=== PATIENT | male | born 1980 | race Caucasian/White ===

== ENCOUNTER 2019-10-23 11:40 | Outpatient (RCR) | payer OTHER, SELFPAY ==
[2019-10-08 11:15] LABS: INR 1.8; Prothrombin Time 20.1 Seconds (11.1-14.7)
[2019-10-23 12:26] LABS: INR 1.2; Prothrombin Time 15.2 Seconds (11.1-14.7)
== END 2020-01-06 23:59 | disposition home or self-care (01) ==
LOC: ANHLAB 11:40
PROVIDERS: PCP Family Medicine; Visit Provider Family Medicine
DX: I26.99 Other pulmonary embolism without acute cor pulmonale (principal)
CPT/HCPCS: 36415; 85610

== ENCOUNTER 2020-01-24 10:24 | Emergency (ER) | payer OTHER, SELFPAY ==
--- NOTE | ~2020-01-24 | XR_ITS ---
EXAMINATION: XR chest 1V portable DATE: 01/24/2020 11:17 INDICATION: Cough and shortness of breath. TECHNIQUE: A single frontal view of the chest was obtained. COMPARISON: Chest 2 views 06/18/2011, chest CT 03/06/2019 FINDINGS: The chest demonstrates clear lungs without pneumonia, pleural effusion, or pneumothorax. Th e heart size is normal. IMPRESSION: 1. No acute cardiopulmonary disease. Reviewed, dictated and finalized at location B.
--- NOTE | ~2020-01-24 | CT_ITS ---
EXAMINATION: CTA chest PE protocol DATE: 01/24/2020 11:53 INDICATION: Shortness of breath TECHNIQUE: Computed tomography angiography (CTA) of the chest was performed with 100 mL Omnipaque-350 intravenous contrast timed to evaluate the pulmonary arteries. Coronal maximum intensity projection 3D-reconstructions were created by the technologist. Automated exposure control and iterative reconst ruction technique were employed. Exam dose: 826.32 mGy-cm total exam DLP. COMPARISON: 03/06/2019 CT pulmonary scan 01/24/2020 portable AP chest FINDINGS: The pulmonary arteries are diagnostically enhanced by contrast material and there is no jenniffer arent pulmonary embolism. No thoracic aortic aneurysm or dissection. There is trace pericardial fluid. No pleural effusion. No hilar or mediastinal mass lesion or lymphadenopathy. No pulmonary infiltrate or consolidation. Normal adrenal glands. Included upper abdominal structures are unremarkable. Small sliding hiatal hernia. Included skeletal structures are unremarkable. IMPRESSION: No evidence of pulmonary embolism Reviewed, dictated and finalized at Location [facility]. Reviewed, dictated and finalized at location A.
[2020-01-24 10:39] VITALS: BP 158/113; PULSE 90; PULSE 95; RESP 22; TEMP 37.1; O2SAT 97
--- NOTE | 2020-01-24 10:43 | ECG_ITS ---
Measurements Intervals [place] Rate: 82 P: 36 [place]: 139 QRS: 8 QRSD: 95 T: 2 QT: 379 QTc: 445 Interpretive Statements SINUS RHYTHM NORMAL ECG Electronically Signed On 01-24-2020 11:52:36 CDT by Brooks Savage D.O.
[2020-01-24 10:51] LABS: Basophils Absolute Auto 0.1 K/mm3 (0.0-0.1); Basophils Percent Auto 0.7 % (0.2-1.2); Eosinophils Absolute Auto 0.1 K/mm3 (0-0.3); Eosinophils Percent Auto 1.1 % (0-4.4); Hematocrit 52.4 % (42.0-52.0); Hemoglobin 17.9 g/dL (14.0-18.0); Immature Granulocyte Absolute 0.02 K/mm3 (0.00-0.031); Immature Granulocyte Percent A 0.2 % (0-0.5); Lymphocytes Absolute Auto 1.46 K/mm3 (0.9-3.2); Lymphocytes Percent Auto 15.9 % (18.3-44.2); Mean Corpuscular HGB Conc 34.2 g/dl (32-36); Mean Corpuscular Hemoglobin 31.1 pg (26-34); Mean Platelet Volume 9.8 fl (7.4-10.4); Monocytes Absolute Auto 0.8 K/mm3 (0.1-0.6); Monocytes Percent Auto 8.3 % (2.6-8.5); Neutrophils Absolute Auto 6.8 K/mm3 (1.3-6.7); Neutrophils Percent Auto 73.8 % (45.5-73.1); Platelet Count Result 310 k/mm3 (150-375); Red Blood Count 5.76 M/mm3 (4.6-6.20); White Blood Count 9.2 K/mm3 (4.5-10.0)
[2020-01-24 11:04] LABS: Anion Gap 13 mmol/L (8-16); Blood Urea Nitrogen 14 mg/dL (9-20); Calcium 9.6 mg/dL (8.4-10.2); Carbon Dioxide 22 mmol/L (22-30); Chloride 105 mmol/L (98-107); Estimated Glomerular Filt Rate > 60; Glucose 131 mg/dL (75-110); Potassium 3.7 mmol/L (3.4-5.0); Sodium 140 mmol/L (137-145)
[2020-01-24 11:15] LABS: INR 1.1; Prothrombin Time 13.4 Seconds (11.1-14.7)
--- NOTE | 2020-01-24 11:15 | ED.GENADULT ---
HPI - General Adult General Chief complaint: Shortness of Breath/Dyspnea <Pepito Cleary PA-C - Last Filed: 01/24/20 12:53> Stated complaint: no appetite, sob, fever, chills <Pepito Cleary PA-C - Last Filed: 01/24/20 12:53> Time Seen by Provider: 01/24/20 11:00 <Pepito Cleary PA-C - Last Filed: 01/24/20 12:53> Source: patient <Pepito Cleary PA-C - Last Filed: 01/24/20 12:53> Mode of arrival: ambulatory <Pepito Cleary PA-C - Last Filed: 01/24/20 12:53> Limitations: no limitations <Pepito Cleary PA-C - Last Filed: 01/24/20 12:53> History of Present Illness HPI narrative: Patient is a 39-year-old male who presents with 3 days duration of upper respiratory symptoms with chills sweats body aches cough shortness of breath is also had a few episodes of loose stools and emesis per day. Patient and his fianc?e who he lives with were tested fianc? is currently positive for COVID. Patient's test results are pending. On arrival patient notes generalized body aches. Patient with history of inflammatory bowel disease currently on Humira had his last injection 2 weeks ago. Patient denies hematemesis or rectal bleeding patient has not taken anything for his symptoms. . Patient also notes decreased appetite over the last several days <Pepito Cleary PA-C - Last Filed: 01/24/20 12:53> Related Data Allergies/adverse reactions: Allergies Allergy/AdvReac Type Severity Reaction Status Date / Time No Known Allergies Allergy Unverified 03/06/19 18:32 <Pepito Cleary PA-C - Last Filed: 01/24/20 12:53> Review of Systems Review of Systems: All systems reviewed & are unremarkable except as noted in HPI and below <Pepito Cleary PA-C - Last Filed: 01/24/20 12:53> [facility] Past Medical History Medical History: Medical History (Updated 01/24/20 @ 12:51 by Pepito Cleary PA-C) Inflammatory bowel disease Pulmonary embolism <Pepito Cleary PA-C - Last Filed: 01/24/20 12:53> Social History Social History: Social History Smoking status: Never smoker Gender identity (if verbalized by the patient): Male <Pepito Cleary PA-C - Last Filed: 01/24/20 12:53> Exam Narrative: Exam Narrative: GENERAL: Ill-appearing, well-nourished, and in no acute distress. HEAD: Normocephalic, atraumatic. EYES: PERRLA and EOMI. ENT: Nares clear, no rhinorrhea or epistaxis. Mucous membranes moist. Oropharynx without tonsillar hypertrophy exudate or other lesions. CHEST: Clear to auscultation. No respiratory distress. No wheezes rales or rhonchi HEART: Regular rate and rhythm. No murmur heard. Normal peripheral pulses. ABDOMEN: Soft, nontender, nondistended EXTREMITIES: Normal range of motion. No edema. SKIN: Warm, dry, no rash. NEURO: No focal deficits. Alert and oriented x3. Cranial nerves II through XII grossly intact PSYCH: Normal mood and affect. <Pepito Cleary PA-C - Last Filed: 01/24/20 12:53> Course Course Emergency Course: Patient aware of case findings treatment plan and diagnosis will self quarantine until COVID results have been obtained is in the room in no distress feeling better with interventions felt appropriate for outpatient reevaluation provided with reasons to return. Patient afebrile nontoxic-appearing no distress. <Pepito Cleary PA-C - Last Filed: 01/24/20 12:53> Vital Signs Vital signs: Vital Signs Temperature 98.8 F 01/24/20 10:39 Pulse Rate 95 01/24/20 10:39 Respiratory Rate 22 H 01/24/20 10:39 Blood Pressure 158/113 H 01/24/20 10:39 Pulse Oximetry 97 01/24/20 10:39 Temperature 98.8 F 01/24/20 10:39 Pulse Rate 95 01/24/20 10:39 Respiratory Rate 22 H 01/24/20 10:39 Blood Pressure 158/113 H 01/24/20 10:39 Pulse Oximetry 97 01/24/20 10:39 <Pepito Cleary PA-C - Last Filed: 01/24/20 12:53> Vital Signs Temperatur
[2020-01-24 11:16] LABS: Partial Thromboplastin Time 25.4 SECONDS (22.3-36.8)
[2020-01-24 11:17] LABS: CRP 1.2 mg/dL (<1.0); Lipase 17 U/L (23-300)
[2020-01-24] MEDS: FAMOTIDINE 20 MG/2 ML VIAL IV PUSH (11:27)
[2020-01-24] MEDS: LACTATED RINGERS 1,000 ML 999 ML IV CONT (11:27)
[2020-01-24 11:38] LABS: Lactic Acid Reflex 1.1 mmol/L (0.7-2.1)
[2020-01-24 11:40] LABS: Alanine Aminotransferase 44 U/L (4-50); Albumin Level 4.8 g/dL (3.5-5.1); Alkaline Phosphatase 76 U/L (38-126); Aspartate Amino Transferase 45 U/L (17-59); Bilirubin,Total 0.8 mg/dL (0.2-1.3)
[2020-01-24 13:14] VITALS: BP 162/105; PULSE 72; RESP 14; O2SAT 98
[2020-01-24 20:41] LABS: SARS-CoV-2 RNA PCR Negative
== END 2020-01-24 13:16 | disposition home or self-care (01) ==
PROVIDERS: Emergency Medicine Emergency Medical Services; Emergency Provider Emergency Medicine; PCP Family Medicine
DX: J06.9 Acute upper respiratory infection, unspecified (principal); Z20.828 Contact with and (suspected) exposure to other viral communicable diseases; K58.9 Irritable bowel syndrome, unspecified
CPT/HCPCS: 36415; 71045; 71275; 80048; 80076; 83605; 83690; 85025; 85610; 85730; 86140; 87040; 87635; 93005; 96365; 96375; 99284; C9803; J0131; J7120; Q9967; U0003

== ENCOUNTER 2020-05-16 08:03 | Emergency (ER) | payer OTHER, SELFPAY ==
--- NOTE | ~2020-05-16 | CT_ITS ---
EXAMINATION: CT abdomen pelvis w con EXAM DATE: 05/16/2020 09:27 INDICATION: Ulcerative colitis. TECHNIQUE: Spiral CT of the abdomen and pelvis was performed following intravenous injection of 100 m L Omnipaque 350. Axial, coronal and sagittal images were reviewed. The dose-length product (DLP) fo r this examination was 1200.98 mGy-cm. The exposure was tailored according to patient size (auto mA exposure control), and iterative reconstruction (ASIR) was used as additional dose reduction techniqu e. Comparison is made to prior examination from 04/17/2011. FINDINGS: The liver, spleen, adrenal glands and pancreas are unremarkable. Gallbladder is unremarkab le. No biliary obstruction. Portal and splenic veins are patent. Kidneys enhance symmetrically. T here is no hydronephrosis. The prostate is unremarkable. The bladder is unremarkable. There is no retroperitoneal or pelvic lymphadenopathy. Diffuse mild to moderate colonic wall edema. No pneumatosis. The appendix is normal. The stomach and small bowel are unremarkable. No free intraperitoneal gas. The heart is normal in size. There a re no pericardial or pleural effusions. The lung bases are unremarkable. There are no osteoblastic or osteolytic lesions identified. IMPRESSION: Pancolitis. Consider ulcerative colitis, infectious colitis. Reviewed, dictated and finalized at location A. O GAME PROGRAMMER
[2020-05-16 08:18] VITALS: BP 150/99; PULSE 77; RESP 14; TEMP 36.9; O2SAT 99
[2020-05-16 08:31] LABS: Basophils Absolute Auto 0.1 K/mm3 (0.0-0.1); Basophils Percent Auto 0.8 % (0.2-1.2); Eosinophils Absolute Auto 0.4 K/mm3 (0-0.3); Eosinophils Percent Auto 4.6 % (0-4.4); Hematocrit 45.8 % (42.0-52.0); Hemoglobin 15.5 g/dL (14.0-18.0); Immature Granulocyte Absolute 0.03 K/mm3 (0.00-0.031); Immature Granulocyte Percent A 0.3 % (0-0.5); Lymphocytes Absolute Auto 2.81 K/mm3 (0.9-3.2); Lymphocytes Percent Auto 29.3 % (18.3-44.2); Mean Corpuscular HGB Conc 33.8 g/dl (32-36); Mean Corpuscular Hemoglobin 30.8 pg (26-34); Mean Corpuscular Volume 90.9 fl (80-100); Mean Platelet Volume 9.6 fl (7.4-10.4); Monocytes Absolute Auto 0.9 K/mm3 (0.1-0.6); Monocytes Percent Auto 9.3 % (2.6-8.5); Neutrophils Absolute Auto 5.3 K/mm3 (1.3-6.7); Neutrophils Percent Auto 55.7 % (45.5-73.1); Platelet Count Result 336 k/mm3 (150-375); Red Blood Count 5.04 M/mm3 (4.6-6.20); Red Cell Distribution Width 13.5 % (11.5-14.5); White Blood Count 9.6 K/mm3 (4.5-10.0)
[2020-05-16 08:42] LABS: Alanine Aminotransferase 22 U/L (4-50); Albumin Level 4.1 g/dL (3.5-5.1); Alkaline Phosphatase 38 U/L (38-126); Anion Gap 11 mmol/L (8-16); Aspartate Amino Transferase 29 U/L (17-59); Bilirubin,Total 0.3 mg/dL (0.2-1.3); Blood Urea Nitrogen 16 mg/dL (9-20); Calcium 9.2 mg/dL (8.4-10.2); Carbon Dioxide 23 mmol/L (22-30); Chloride 106 mmol/L (98-107); Estimated CRCL calculation 128 ml/min; Estimated Glomerular Filt Rate > 60; Glucose 107 mg/dL (75-110); Lipase 82 U/L (23-300); Potassium 4.5 mmol/L (3.4-5.0); Sodium 140 mmol/L (137-145)
[2020-05-16] MEDS: SODIUM CHLORIDE 0.9% IV 1,000 ML 999 ML IV CONT ×2 (09:31)
--- NOTE | 2020-05-16 09:33 | ED.ABDPAIN ---
HPI - Abdominal Pain General Chief Complaint: Abdominal Pain Stated Complaint: abd pain, n/v Time Seen by Provider: 05/16/20 08:17 Source: patient Mode of arrival: ambulatory Limitations: no limitations History of Present Illness HPI narrative: 39 years old white male presents with diffuse intermittent abdominal pain started 3 days ago associated with nausea, vomiting on average 20 times a day, diarrhea on average 20 times a day. Currently patient is asymptomatic. History of ulcerative colitis was seen by Dr. briscoe, last time 2 months ago, status post colonoscopy. Currently patient on Humira 2 injection a month. Patient denies any fever, chills, exposure to anybody known having COVID-19. Patient does not smoke, drinks occasionally, denies drug use. History of pancreatitis Denies any antibiotic use in the last few months Related Data Home Medications Medication Instructions Recorded Confirmed escitalopram oxalate mg 05/16/20 lorazepam 05/16/20 zolpidem 05/16/20 Allergies Allergy/AdvReac Type Severity Reaction Status Date / Time No Known Allergies Allergy Verified 05/16/20 08:22 Review of Systems Review of Systems: Narrative: CONSTITUTIONAL: Denies fever, chills, or sweats. EYES: Denies visual changes, redness, or discharge. ENT: Denies rhinorrhea, congestion, sore throat, or otalgia. CARDIOVASCULAR: Denies chest pain, palpitations, or edema. RESPIRATORY: Denies cough or dyspnea. GASTROINTESTINAL: Abdominal pain, nausea, vomiting and diarrhea GENITOURINARY: Denies dysuria or hematuria. SKIN: Denies rash or itching. MUSCULOSKELETAL: Denies back pain, joint pain, or myalgia. NEUROLOGIC: Denies headache, numbness, or weakness. PSYCHIATRIC: Denies anxiety or depression. Exam Narrative: Exam Narrative: General appearance: Well-developed, well-nourished Skin: Normal color Head: Normocephalic, nontraumatic Eyes: Clear conjunctiva ENT: Oropharynx normal, ears normal, nose normal Neck: Supple, nontender Chest and respiratory: Airway patent, no respiratory distress, no accessory muscle use Heart: Regular rate/rhythm Abdomen: Soft, nontender, no organomegaly, quiet bowel sounds Vascular: Normal peripheral pulses, normal capillary refill. Musculoskeletal: Normal range of motion, nontender back Neurologic: Alert and oriented ?3, ADJUTANT GENERAL is normal as tested, no gross motor deficit Course Course Emergency Course: Stable, improving Reevaluation(s) Reevaluation #1: Patient did not have any diarrhea or vomiting since arrival to the emergency room. Patient is able to keep fluid and the crackers down. Patient will be discharged on Levaquin and Flagyl. Date: 05/16/20 Time: 12:26 Consultations Consultation #1: Dr. Arenas id Patient able to keep fluid and crackers down, can go home on Flagyl and Levaquin. Date: 05/16/20 Time: 12:25 Vital Signs Vital signs: Vital Signs Temperature 36.9 C 05/16/20 08:18 Pulse Rate 77 05/16/20 08:18 Respiratory Rate 14 05/16/20 08:18 Blood Pressure 150/99 H 05/16/20 08:18 Pulse Oximetry 99 05/16/20 08:18 Temperature 36.9 C 05/16/20 08:18 Pulse Rate 80 05/16/20 11:47 Respiratory Rate 16 05/16/20 11:47 Blood Pressure 148/88 H 05/16/20 11:47 Pulse Oximetry 98 05/16/20 11:47 MDM - Abdominal Pain MDM Narrative Medical decision making narrative: Patient presents with abdominal pain, severe nausea, vomiting and diarrhea. Labs, CT abdomen and pelvis with IV contrast, IV fluids, stool analysis, ordered. Further plan to follow. Differential Diagnosis Differential diagnosis: Likely abdominal pain, gastroenteritis, pancreatitis and other (Viral gastroenteritis) Lab Data Result diagrams:
[2020-05-16 11:05] LABS: Add Urine Microscopic? NO; Appearance Urine Clear (Clear); Bilirubin Urine Negative (Negative); Blood Urine Negative (Negative); Color Urine Straw (Yellow); Glucose Urine UA Negative (Negative); Ketones Urine Negative (Negative); Leukocyte Esterase Ur Negative LEU/UL (Negative); Nitrate Urine Negative (Negative); Protein Urine Negative (Negative); Urobilinogen Urine Negative mg/dL (<2.0); WBC Urine 0-3 /hpf
[2020-05-16 11:20] LABS: Specific Grav Ur > 1.060 (1.001-1.035)
[2020-05-16 11:47] VITALS: BP 148/88; PULSE 80; RESP 16; O2SAT 98
--- NOTE | 2020-05-16 12:20 | PC.NURSE ---
pt tolerated fluids on PO challenge provider aware
== END 2020-05-16 12:20 | disposition home or self-care (01) ==
PROVIDERS: Emergency Provider Emergency Medicine; PCP Family Medicine
DX: K51.00 Ulcerative (chronic) pancolitis without complications (principal)
CPT/HCPCS: 36415; 74177; 80053; 81003; 83690; 85025; 96360; 96361; 99284; J7030; Q9967

== ENCOUNTER 2020-05-24 10:25 | Inpatient (IN) | payer OTHER, SELFPAY ==
[2020-05-24] VITALS (8 sets, daily range): BP systolic 123–171; BP diastolic 56–115; PULSE 60–103; RESP 16–20; TEMP 36.4–36.9; O2SAT 95–100
--- NOTE | ~2020-05-24 | CT_ITS ---
EXAMINATION: CT abdomen pelvis wo con DATE: 05/24/2020 13:26 INDICATION: Ulcerative colitis flare TECHNIQUE: Computed tomography (CT) of the abdomen and pelvis was performed without intravenous contr ast. Automated exposure control and iterative reconstruction technique were employed. The dose-length product was 953.34 mGy-cm. COMPARISON: 05/16/2020 FINDINGS: Lung bases are clear. Heart size is normal. No pericardial or pleural effusion. Liver, gallbladder, s pleen, bilateral adrenal glands and kidneys are normal. Fatty atrophy of the pancreas, mild at the maryjo dy and tail and prominent at the head and uncinate process. Again seen is relatively uniform diffuse edematous wall thickening of the entire colon which appears similar in degree with the prior study. A s previously there is a featureless relatively ahaustral pattern to the colon which can be seen datin g back to 2009 consistent with chronic ulcerative colitis. No pneumatosis or abnormal dilation of the colon. Small bowel and appendix are normal. No bowel obstruction. There are multiple likely reactive normal-sized lymph nodes along the colonic mesentery which are more notable for number than size. Bl adder is normal. Small fat-containing left inguinal hernia. No abscess or free intraperitoneal gas or fluid. Mild lumbar dextrocurvature with mild spondylosis. IMPRESSION: 1. No significant change in likely acute on chronic pancolitis consistent with given history of ulcer ative colitis. Reviewed, dictated and finalized at location A. SKINNER IMPRESSION: 1. No significant change in likely acute on chronic pancolitis consistent with given history of ulcerative colitis.
[2020-05-24 10:54] LABS: Basophils Absolute Auto 0.1 K/mm3 (0.0-0.1); Basophils Percent Auto 0.5 % (0.2-1.2); Eosinophils Absolute Auto 0.1 K/mm3 (0-0.3); Eosinophils Percent Auto 0.8 % (0-4.4); Hemoglobin 15.3 g/dL (14.0-18.0); Immature Granulocyte Absolute 0.06 K/mm3 (0.00-0.031); Immature Granulocyte Percent A 0.5 % (0-0.5); Lymphocytes Absolute Auto 2.27 K/mm3 (0.9-3.2); Lymphocytes Percent Auto 20.7 % (18.3-44.2); Mean Corpuscular Hemoglobin 30.5 pg (26-34); Mean Corpuscular Volume 89.6 fl (80-100); Mean Platelet Volume 9.7 fl (7.4-10.4); Monocytes Absolute Auto 1.5 K/mm3 (0.1-0.6); Monocytes Percent Auto 13.7 % (2.6-8.5); Neutrophils Percent Auto 63.8 % (45.5-73.1); Platelet Count Result 367 k/mm3 (150-375); Red Blood Count 5.02 M/mm3 (4.6-6.20); Red Cell Distribution Width 13.3 % (11.5-14.5); White Blood Count 10.9 K/mm3 (4.5-10.0)
[2020-05-24 11:10] LABS: Alanine Aminotransferase 20 U/L (4-50); Albumin Level 3.9 g/dL (3.5-5.1); Alkaline Phosphatase 50 U/L (38-126); Anion Gap 8 mmol/L (8-16); Aspartate Amino Transferase 23 U/L (17-59); Bilirubin,Total 0.4 mg/dL (0.2-1.3); Blood Urea Nitrogen 14 mg/dL (9-20); Calcium 9.3 mg/dL (8.4-10.2); Carbon Dioxide 27 mmol/L (22-30); Chloride 100 mmol/L (98-107); Estimated CRCL calculation 127 ml/min; Estimated Glomerular Filt Rate > 60; Glucose 134 mg/dL (75-110); Lipase 22 U/L (23-300); Potassium 4.2 mmol/L (3.4-5.0); Sodium 135 mmol/L (137-145)
[2020-05-24] MEDS: DICYCLOMINE HCL INJ 20 MG/2 ML VIAL IM ×2 (11:36→20:46)
[2020-05-24] MEDS: LACTATED RINGERS 1,000 ML 999 ML IV CONT (12:12)
[2020-05-24] MEDS: ONDANSETRON INJ 4 MG/2 ML VIAL IV PUSH ×3 (12:24→20:34)
[2020-05-24] MEDS: methylPREDNISolone SOD SUCC 125 MG VIAL 60 MG IV PUSH ×2 (12:24→21:40)
[2020-05-24] MEDS: fentaNYL CITRATE INJ (*CRX) 100 MCG/2 ML VIAL 50 MCG IV PUSH ×2 (12:25→14:13)
--- NOTE | 2020-05-24 13:32 | ED.NAVMDI ---
HPI - Nausea/Vomiting/Diarrhea General Chief complaint: Nausea/Vomiting/Diarrhea Stated complaint: n/v abd pain Time Seen by Provider: 05/24/20 10:41 Source: patient Mode of arrival: ambulatory Limitations: no limitations History of Present Illness HPI Narrative: 39-year-old male History of ulcerative colitis He is followed by Dr. Adam and uses Humira shots every 2 weeks He started having crampy abdominal pain and loose stools a week ago He was evaluated here testing included a CT scan of the abdomen consistent with pancolitis and he was discharged with Levaquin and Flagyl His symptoms have not improved and in fact they might be worse, he complains of severe abdominal pains like he is being stabbed with 1000 knives and tenesmus and frequent small bloody stools No fever, he is nauseated, he has vomited a couple of times but that is not a primary issue He believes he is lost 15 or 20 pounds Related Data Home Medications Medication Instructions Recorded Confirmed lorazepam 1.5 mg PO BID PRN 05/16/20 05/24/20 zolpidem 10 mg PO HS 05/16/20 05/24/20 adalimumab [Humira Pen] 40 mg SUBCUT [id number] 05/24/20 05/24/20 buspirone 10 mg PO TID 05/24/20 05/24/20 Allergies Allergy/AdvReac Type Severity Reaction Status Date / Time No Known Allergies Allergy Verified 05/24/20 10:35 Review of Systems Review of Systems: All systems reviewed & are unremarkable except as noted in HPI and below Constitutional: Constitutional: Reports chills, Reports fatigue, Denies fever(s), Denies headache(s) and Reports weakness Eyes: Eyes: Reports no additional eye complaints and Denies change in vision ENT: Denies headache(s), Denies epistaxis, Denies nasal congestion and Denies sore throat Cardiovascular: Cardiovascular: Denies chest pain, Denies leg edema, Denies palpitations and Denies dyspnea Respiratory: Respiratory: Denies cough, Denies dyspnea and Denies wheezing Gastrointestinal: Gastrointestinal: Reports abdominal pain, Reports bloating, Reports hematochezia, Reports change in bowel habits, Reports diarrhea, Reports nausea and Reports vomiting Genitourinary: Genitourinary: Denies hematuria, Denies dysuria and Denies urinary frequency Musculoskeletal: Musculoskeletal: Denies deformity, Denies arthralgias, Denies joint swelling, Denies muscle weakness and Denies numbness Integumentary/Breasts: Skin/Breast: Denies rash and Denies wounds Neurologic: Denies headache(s), Denies focal weakness, Denies numbness and Denies weakness Psychiatric: Psychiatric: Reports no additional psychiatric complaints Endocrine: Endocrine: Denies fatigue and Denies palpitations Hematologic/Lymphatic: Hematologic/Lymphatic: Denies easy bleeding and Denies easy bruising Allergic/Immunologic: Allergic/Immunologic: Denies wheezing PMFSH Social History Social History Gender identity (if verbalized by the patient): Male Exam Const: General: well developed and awake Nutritional Appearance: well nourished Orientation/consciousness: patient oriented x3 (alert) Limitations: no limitations HENMT: Head: normocephalic and atraumatic Ears: external ears normal General nose exam: No nasal discharge present and no epistaxis Face and sinus: face symmetric Eyes: Conjunctivae: conjunctivae normal Sclera: sclerae normal EOM: EOMs intact bilaterally Neck: Neck: normal visual inspection, supple and no JVD Chest: Chest palpation & inspection: deferred Resp: Effort & Inspection: normal respiratory effort Auscultation: clear to auscultation bilaterally, no rales, no rhonchi, no wheezes and other (BS =) Cardio: Rate: regular rate Rhythm: regular rhythm Heart sounds: no gallops and no murmurs GI: Inspection: normal to inspection GI Palp: Yes Soft to palpation, Yes Tenderness to palpation present (GI), No Guarding due to palpation present (GI) and No Rebound tenderness present Auscultation: normal
--- NOTE | 2020-05-24 15:00 | PM.IMHP ---
H&P: HPI History of Present Illness Date/Time: 05/24/20 15:00 Chief complaint: Abdominal pain. Narrative: Popeye Copeland II is a 39-year-old male with ulcerative colitis, pulmonary embolism, and anxiety who presented to the emergency department earlier today from home for evaluation of abdominal pain. He was diagnosed with ulcerative colitis approximately 3 years ago and it has been pretty debilitating, to the point where he has not been able to work since diagnosis. He had a pretty significant flare lasting nearly 2 years until he was started on Humira however over the past 8 weeks or so it seems as though he has had increasing diarrhea, much worse over the last 2 weeks. He was seen in the emergency department on May [address] the abdomen and pelvis showed pancolitis. He was discharged home with levofloxacin and metronidazole which he completed several days ago. Initially there was some mild relief from his diarrhea however he once again and is having bloody, mucousy stools ?20 to 40 times a day.? Associated symptoms include nausea, decreased appetite, and multiple episodes of emesis this throughout the day typically occurring shortly after taking anything in orally. Additionally he describes severe diffuse abdominal pain rated 10/10. Tramadol has been of no benefit. He has not had fever however his significant other believes that he has felt warm to touch and he has been somewhat diaphoretic. Review of Systems Review of Systems: Narrative: Twelve systems were reviewed with pertinent positives and negatives as per HPI. No fever. No recent cold or flu symptoms. He denies sick contacts. No known exposure to those positive for COVID-19. He denies chest pain, pleuritic pain, and shortness of breath. Except as documented, all other systems were reviewed and are negative. [facility] Past Medical History Medical History (Updated 05/24/20 @ 22:30 by Aga Burch PA-C) Anxiety Deep venous thrombosis (~02/2019) History of pancreatitis Pulmonary embolism (~02/2019) Ulcerative colitis Surgical History Surgical History (Updated 05/24/20 @ 22:25 by Aga Burch PA-C) History of knee surgery History right knee surgery/washout secondary to joint infection. Family History Family History (Updated 05/24/20 @ 22:25 by Aga Burch PA-C) Sibling Ulcerative colitis Mother , Mother from an overdose at age 52. No problems noted. Father , Father was morbidly obese and from complications of an infection. No problems noted. Social History Social History (Updated 05/24/20 @ 22:28 by Aga Burch PA-C) Social History: Lives in [place] with his linettee and children. He has not worked for several years due to his ulcerative colitis. He chews tobacco. Will drink heavily on the weekends. Occasional marijuana use. His dustin Kaplan is his surrogate decision maker and he wishes to be a full code. Smoking status: Never smoker Second hand tobacco smoke exposure: No Alcohol intake: current Substance use: current Substance use type: marijuana Other substance usage details: Occasionally smokes marijuana/drinks alcohol Last use: 05/17/2020 Spiritual care concerns: No Meds Home Medications and Allergies Home Medications Medication Instructions Recorded Confirmed Type lorazepam 1.5 mg PO BID PRN 05/16/20 05/24/20 History zolpidem 10 mg PO HS 05/16/20 05/24/20 History adalimumab [Humira Pen] 40 mg SUBCUT [id number] 05/24/20 05/24/20 History buspirone 10 mg PO TID 05/24/20 05/24/20 History Allergies Allergy/AdvReac Type Severity Reaction Status Date / Time No Known Allergies Allergy Verified 05/24/20 18:08 Vital Signs Vital Signs - 24 hr 05/24/20 10:29 05/24/20 12:11 05/24/20 13:47 Temperature 98.2 F Pulse Rate 94 75 60 Respiratory Rate 20 20 20 Blood Pressure 126/107 H 171/106 H 161/103 H Pulse Oximetry 98 1
[2020-05-24] MEDS: HYDROmorphone HCL INJ (*CRX) 1 MG/ML SYR IV PUSH ×3 (15:16→21:41)
--- NOTE | 2020-05-24 17:59 | ADMGEN ---
This patient, Popeye Hernandez II, was admitted to 2 Medical Room 258-01. Patient/family oriented to hospital policies and general routines including ID bracelet, bed and alarms, visiting hours, pain management, procedures, bathroom and other care routines, personal items, smoking policy, room service/diet, and visiting hours. Information on how to activate the Rapid Response Team has been discussed. Patient/Family are encouraged to report perceived risks to care and to ask questions if they do not understand what they are told or what they should do.
[2020-05-24] MEDS: LACTATED RINGERS 1,000 ML 200 ML IV CONT (18:14)
[2020-05-24] MEDS: PANTOPRAZOLE SODIUM IV 40 MG VIAL IV PUSH (20:34)
[2020-05-24] MEDS: LORazepam (*CRX) 0.5 MG TABLET 1.5 MG PO (21:40)
[2020-05-24] MEDS: busPIRone HCL 10 MG TABLET PO (21:43)
[2020-05-25] MEDS: HYDROmorphone HCL INJ (*CRX) 1 MG/ML SYR IV PUSH ×3 (00:44→06:56)
[2020-05-25] MEDS: ONDANSETRON INJ 4 MG/2 ML VIAL IV PUSH (00:48)
[2020-05-25] MEDS: LACTATED RINGERS 1,000 ML 200 ML IV CONT ×2 (00:48→06:06)
[2020-05-25] MEDS: ZOLPIDEM TARTRATE (*CRX) 5 MG TABLET 10 MG PO (02:25)
[2020-05-25 06:00] VITALS: BP 145/78; PULSE 74; RESP 16; TEMP 36.6; O2SAT 95
[2020-05-25] MEDS: methylPREDNISolone SOD SUCC 125 MG VIAL 60 MG IV PUSH (06:07)
[2020-05-25 06:30] LABS: Basophils Percent Auto 0.1 % (0.2-1.2); Hematocrit 42.2 % (42.0-52.0); Hemoglobin 14.1 g/dL (14.0-18.0); Immature Granulocyte Absolute 0.05 K/mm3 (0.00-0.031); Immature Granulocyte Percent A 0.7 % (0-0.5); Lymphocytes Absolute Auto 1.23 K/mm3 (0.9-3.2); Lymphocytes Percent Auto 17.9 % (18.3-44.2); Mean Corpuscular HGB Conc 33.4 g/dl (32-36); Mean Corpuscular Hemoglobin 30.1 pg (26-34); Mean Corpuscular Volume 90.2 fl (80-100); Mean Platelet Volume 10.1 fl (7.4-10.4); Monocytes Absolute Auto 0.5 K/mm3 (0.1-0.6); Monocytes Percent Auto 7.4 % (2.6-8.5); Neutrophils Absolute Auto 5.1 K/mm3 (1.3-6.7); Neutrophils Percent Auto 73.9 % (45.5-73.1); Platelet Count Result 345 k/mm3 (150-375); Red Blood Count 4.68 M/mm3 (4.6-6.20); Red Cell Distribution Width 13.5 % (11.5-14.5); White Blood Count 6.9 K/mm3 (4.5-10.0)
[2020-05-25 06:47] LABS: Anion Gap 7 mmol/L (8-16); Blood Urea Nitrogen 14 mg/dL (9-20); CRP 7.5 mg/dL (<1.0); Calcium 8.8 mg/dL (8.4-10.2); Carbon Dioxide 26 mmol/L (22-30); Chloride 103 mmol/L (98-107); Estimated CRCL calculation 160 ml/min; Estimated Glomerular Filt Rate > 60; Glucose 151 mg/dL (75-110); Potassium 4.3 mmol/L (3.4-5.0); Sodium 136 mmol/L (137-145)
[2020-05-25] MEDS: PANTOPRAZOLE SODIUM IV 40 MG VIAL IV PUSH (09:44)
[2020-05-25] MEDS: busPIRone HCL 10 MG TABLET PO (09:44)
[2020-05-25] MEDS: DICYCLOMINE HCL INJ 20 MG/2 ML VIAL IM (09:45)
[2020-05-25] MEDS: LORazepam (*CRX) 0.5 MG TABLET 1.5 MG PO (10:52)
--- NOTE | 2020-05-25 11:18 | PM.IMPN ---
Progress Note: A&P Assessment and Plan (1) Exacerbation of ulcerative colitis: Code(s): K51.90 - Ulcerative colitis, unspecified, without complications Status: Acute Assessment and Plan: CT a/p showed acute on chronic pancolitis. He recently completed a course of levofloxacin and metronidazole just a few days ago. He is established with Dr. Arenas. He is reporting episodes of bright red blood per rectum with no stool. His pain is improved. Gastroenterology has been consulted and their input is appreciated Will continue with IV Solu-Medrol Continue IV fluid rehydration Analgesics and antiemetics as needed. Continue NPO diet Stool culture has been collected for C diff testing due to recent antibiotic use (2) Elevated blood pressure reading: Code(s): R03.0 - Elevated blood-pressure reading, without diagnosis of hypertension Status: Acute Assessment and Plan: Blood pressure is elevated in the 160-1 70s systolic range upon presentation. This may be elevated secondary to pain. Pain is better controlled today and blood pressures are in the 130-140s systolic. At this time, we will just continue to monitor his blood pressures and hold off on initiating any antihypertensive agents given relative improvement. Blood pressures will be closely monitored. (3) Anxiety: Code(s): F41.9 - Anxiety disorder, unspecified Status: Inactive Assessment and Plan: His mood is stable at this time. Continue buspirone Subjective Date/time seen: 05/25/20 11:18 Interval history: Date of service: 05/25/2020 Popeye Copeland is a 39-year-old male with history of ulcerative colitis, PE and DVT, and anxiety who is seen in follow-up for flare of ulcerative colitis. He is feeling a lot better this morning. He reports he was having pretty significant pain overnight but this has improved quite a bit. He reports 2 episodes of bright red blood per rectum today. He has no stool output and reports that it is only blood. Denies any mucus in his stools. He has poor appetite does not feel that he could eat anything with the symptoms he is currently having. He was having episodes of emesis yesterday but denies any nausea or vomiting today. At this time he has no pain whatsoever. He has requested ice chips and feels that his mouth is dry. He denies shortness of breath, cough, chest pain, dizziness, lightheadedness, weakness. He has been urinating without difficulty. Review of Systems Review of Systems: All systems reviewed & are unremarkable except as noted in HPI and below Exam Narrative: Exam Narrative: Min Lieberman is a well-nourished 39-year-old male who is lying supine in bed. He appears comfortable and is in NARD. HR 74, BP 145/78, RR 16, T 97.8?, 95% on room air Neuro: awake, alert and oriented x4, speech clear, no focal neuro deficits noted HEENMT: normocephalic, atraumatic, EOMI, sclerae anicteric, dry oral mucosa, tongue midline, nares patent Neck: supple, no lymphadenopathy Respiratory: clear to auscultation bilaterally, nonlabored breathing Cardio: regular rate, regular rhythm with S1-S2 Abdomen: nondistended, normoactive bowel sounds, soft, minimally tender to palpation of RLQ and LLQ, no rigidity or guarding Extremities: no edema, erythema, cyanosis, clubbing, or tenderness to palpation, DP pulses 2+ bilaterally Skin: no rashes or lesions, warm and dry Psych: appropriate mood and affect, judgment and insight intact Objective Data Vital Signs Vital Signs: Vital Signs - 24 hr 05/24/20 12:11 05/24/20 13:47 05/24/20 15:21 Temperature Pulse Rate 75 60 89 Respiratory Rate 20 20 20 Blood Pressure 171/106 H 161/103 H 168/115 H Pulse Oximetry 100 98 99 05/24/20 16:38 05/24/20 18:00 05/24/20 18:21 Temperature 98.4 F 97.5 F L Pulse Rate 103 H 99 84 Respiratory Rate 20 20 Blood Pressure 142/109 H 150/100 H 123/78 Pulse Oximetry 95 99 97 05/24/20
[2020-05-25] MEDS: LACTATED RINGERS 1,000 ML 110 ML IV CONT (12:31)
--- NOTE | 2020-05-25 13:29 | WPDGICN ---
Assessment and Plan Assessment and plan (1) Exacerbation of ulcerative colitis: Code(s): K51.90 - Ulcerative colitis, unspecified, without complications Status: Acute Assessment and Plan: he is feeling better and wants to go home, offered to do a colonoscopy tomorrow to assess mucosa and get biopsies but he would rather call his GI doctor, Deepa, and arrange a colonoscopy as outpatient he can go home with prednisone taper (40mg daily to decrease 10mg every 5 days) and continue with humira (if still active colitis then consider to get humira trough level and antibodies and probably ? entyvio, imuran, etc) (2) Bloody diarrhea: Code(s): R19.7 - Diarrhea, unspecified Status: Acute Assessment and Plan: pending stool samples he completed antibiotics few days ago (3) Nausea and vomiting in adult: Code(s): R11.2 - Nausea with vomiting, unspecified Status: Acute Assessment and Plan: no more episodes, will start diet and follow-up with Dr Arenas (4) Abdominal pain: Code(s): R10.9 - Unspecified abdominal pain Status: Acute Assessment and Plan: improved (5) History of pulmonary embolism: Code(s): Z86.711 - Personal history of pulmonary embolism Status: Acute Assessment and Plan: he is not longer using blood thinners GI Consult Note Consult date/time: 05/25/20 13:29 Reason for consult: ulcerative colitis flare HPI: Popeye Copeland II is a 39 year old male with ulcerative colitis diagnosed in 2009 who used to see Dr Barros with his last colonoscopy about 2.5 years ago after his last hospitalization for UC, also had PE more than a year ago but he is not longer on blood thinners. He switched to Dr Arenas about 1.5 years ago and started him on humira about 8 months ago (using every 2 weeks), also had EGD by Dr Arenas ~1 month ago because reflux. He says that initially with Dr Barros was only on steroids intermittently but since using humira abdominal pain has improved, also did not have more rectal bleeding but still frequent stools daily. Last 3 weeks with blood in stools again, several episodes of diarrhea more than 20 a day. He came to ER several days ago, CT a/p showed pancolitis and sent home with oral flagyl and levaquin that completed. Blood in stools did not improve and also had bilious emesis, started on iv steroids and now he is back to his baseline and says that did not require any more pain meds since yesterday and he is feeling like going home today. CT scan with similar findings, CRP elevated with normal cbc, renal function and electrolytes. Review of Systems Constitutional: Constitutional: Denies chills Eyes: Eyes: Denies blurry vision ENT: Denies dysphagia Cardiovascular: Cardiovascular: Denies chest pain Respiratory: Respiratory: Denies cough Gastrointestinal: Gastrointestinal: Reports abdominal pain, Reports diarrhea and Reports nausea Genitourinary: Genitourinary: Denies dysuria Musculoskeletal: Musculoskeletal: Denies neck pain Integumentary/Breasts: Skin/Breast: Denies dry skin Neurologic: Denies headache(s) Psychiatric: Psychiatric: Denies confusion Hematologic/Lymphatic: Hematologic/Lymphatic: Denies lymphadenopathy [facility] Past Medical History Medical History (Updated 05/25/20 @ 13:43 by Juan Wick MD) Abdominal pain Anxiety Bloody diarrhea Deep venous thrombosis (~02/2019) History of pancreatitis History of pulmonary embolism Nausea and vomiting in adult Pulmonary embolism (~02/2019) Ulcerative colitis Surgical History Surgical History (Updated 05/24/20 @ 22:25 by Aga Burch PA-C) History of knee surgery History right knee surgery/washout secondary to joint infection. Family History Family History (Updated 05/24/20 @ 22:25 by Aga Burch PA-C) Sibling Ulcerative colitis Mother , Mother from an overdose at age 52. No problems noted. Father
--- NOTE | 2020-05-26 07:49 | PM.DS ---
DS: Admitting Diagnosis Admitting Diagnosis Admitting Diagnosis: Abdominal pain. DS: Discharge Diagnosis Discharge Diagnosis (1) Exacerbation of ulcerative colitis: Code(s): K51.90 - Ulcerative colitis, unspecified, without complications Status: Acute Assessment and Plan: CT a/p showed acute on chronic pancolitis. He recently completed a course of levofloxacin and metronidazole just a few days ago. He is established with Dr. Arenas. He reported episodes of bright red blood per rectum. He was seen in consultation by GI. He was started on IV solumedrol and will continue a PO prednisone taper as an outpatient. He was rehydrated with IV fluids and diet was advanced. He was able to tolerate a soft, bland diet which we discussed continuing until symptoms resolved. He will follow up with his GI doctor, Dr. Arenas, tomorrow and colonoscopy is being considered. Given his recent onset of liquid stools, C. diff testing was ordered, however patient did not have any bowel movements and therefore unable to be collected, also makign c. diff highly unlikely. (2) Elevated blood pressure reading: Code(s): R03.0 - Elevated blood-pressure reading, without diagnosis of hypertension Status: Acute Assessment and Plan: Blood pressure elevated in the 160-170s systolic range upon presentation which may have been secondary to pain. Pain became better controlled and blood pressures improved in the 130-140s systolic. No adjustments to medication regimen were made and will hold off on adding antihypertensives. He will need to follow up with PCP. (3) Anxiety: Code(s): F41.9 - Anxiety disorder, unspecified Status: Inactive Assessment and Plan: His mood remained stable. Continue buspirone DS: Summary Hospital Course Reason for hospitalization: Ulcerative colitis flare Hospital Course: date of admission: 05/24/2020 date of discharge: 05/25/2020 Popeye Copeland is a 39-year-old male with history of ulcerative colitis, PE and DVT, and anxiety who presented to the emergency department on 05/24/2020 with complaints of crampy abdominal pain in loose stools that began about 1 week ago. He was actually evaluated in the emergency department on 05/16/2020 and started on levofloxacin and metronidazole. He recently completed these antibiotics and did not note much improvement. He complained of severe abdominal pain and bloody stools. Upon presentation, BP elevated with additional VSS, CBC and BMP unremarkable, and CT a/p showed no significant change in acute on chronic pancolitis consistent with history of ulcerative colitis. he was admitted to the hospitalist service and was seen in consultation by Gastroenterology. Please see above for further details. His pain improved significantly and he was able to tolerate a soft diet. He was extremely eager for discharge home. Dr. Childs offered to perform a colonoscopy on him while inpatient, however he wished to return home and follow-up with Dr. Arenas. given his overall improvement, he was determined to no longer require inpatient care and was felt to be stable for discharge. He will continue p.o. prednisone taper as an outpatient. He will need to follow-up with Dr. Arenas as soon as possible. we discussed worrisome signs and symptoms for which to return he was educated on his medications. He was discharged hemodynamically stable condition on 05/25/2020. Status at Discharge Functional status at discharge: independent ambulation Overall status at discharge: patient is progressing back to baseline Time Spent with Patient Time attestation: Total time spent providing and/or coordinating discharge services: 45 minutes Time spent: Greater than 30 minutes Exam Narrative: Exam Narrative: Min Lieberman is a well-nourished 39-year-old male who is lying supine in bed. He appears comfortable and is in NARD. HR 74, BP 145/78, RR 16, T 97.8?, 95% on room air Neuro: kelin
== END 2020-05-25 14:25 | disposition home or self-care (01) | DRG 245 ==
LOC: ANHED 13:48 → ANH2MED 22:33
PROVIDERS: Physician Assistant; Admitting Provider Family Medicine; Emergency Provider Emergency Medicine; PCP Family Medicine; Visit Provider Physician Assistant
DX: K51.90 Ulcerative colitis, unspecified, without complications (principal); F41.9 Anxiety disorder, unspecified; Z86.711 Personal history of pulmonary embolism; R03.0 Elevated blood-pressure reading, without diagnosis of hypertension
CPT/HCPCS: 36415; 74176; 80048; 80053; 83690; 85025; 86140; 96361; 96372; 96374; 96375; 99285; A9270; C9113; J0500; J1170; J2405; J2930; J3010; J7120

== ENCOUNTER 2020-05-29 20:35 | Inpatient (IN) | payer OTHER, SELFPAY ==
--- NOTE | ~2020-05-29 | CT_ITS ---
EXAMINATION: CT abdomen pelvis w con EXAM DATE: 05/29/2020 22:52 INDICATION: Abdominal pain. History of ulcerative colitis. Blood in stool. Emesis. TECHNIQUE: Spiral CT of the abdomen and pelvis was performed following intravenous injection of 100 m L Omnipaque 350. Axial, coronal and sagittal images were reviewed. The dose-length product (DLP) fo r this examination was 873.78 mGy-cm. The exposure was tailored according to patient size (auto mA e xposure control), and iterative reconstruction (ASIR) was used as additional dose reduction technique . 05/24/2020, 05/16/2020 FINDINGS: Again there is moderate diffuse colonic wall edema, vincent colitis with relatively haustral ap pearance. Some reactive small mesenteric lymph nodes. No pathologically enlarged abdominal or pelvic lymphadenopathy. No pneumatosis or portal venous gas. The liver, spleen, adrenal glands and pancreas are unremarkable. Gallbladder is unremarkable. No bi liary obstruction. Portal and splenic veins are patent. Kidneys enhance symmetrically. There is no hydronephrosis. The prostate is unremarkable. The bladder is unremarkable. There is no retroperi toneal or pelvic lymphadenopathy. Small left inguinal fat-containing hernia. The appendix is normal. The stomach and small bowel are unremarkable. No free intraperitoneal gas. The heart is normal in size. There are no pericardial or pleural effusions. The lung bases are u nremarkable. There are no osteoblastic or osteolytic lesions identified. IMPRESSION: Persistent vincent colitis, appearance consistent with given history of ulcerative colitis. P anniculitis. Reviewed, dictated and finalized at location G. NSTITCH ELASTIC ATTACHER IMPRESSION: Persistent vincent colitis, appearance consistent with given history of ulcerative colitis. Panniculitis.
--- NOTE | ~2020-05-29 | XR_ITS ---
EXAMINATION: XR abdomen/kub 1V DATE: 05/30/2020 05:34 INDICATION: Abdominal pain. TECHNIQUE: A supine view of the abdomen on 2 radiographs was obtained. COMPARISON: CT abdomen and pelvis 05/29/2020 FINDINGS: There are no dilated loops of bowel. There is fold thickening in the colon, consistent with colitis. IMPRESSION: 1. Colitis. Reviewed, dictated and finalized at location A. GER [employer] IMPRESSION: 1. Colitis.
[2020-05-29 20:35] VITALS: BP 160/96; PULSE 78; RESP 22; TEMP 36.3; O2SAT 100
[2020-05-29] MEDS: ONDANSETRON INJ 4 MG/2 ML VIAL IV PUSH (21:07)
[2020-05-29] MEDS: HYDROmorphone HCL INJ (*CRX) 1 MG/ML SYR IV PUSH (21:09)
[2020-05-29] MEDS: SODIUM CHLORIDE 0.9% IV 1,000 ML 999 ML IV CONT (21:12)
[2020-05-29] MEDS: DICYCLOMINE HCL INJ 20 MG/2 ML VIAL IM (21:12)
[2020-05-29 22:01] LABS: Basophils Absolute Auto 0.1 K/mm3 (0.0-0.1); Basophils Percent Auto 0.4 % (0.2-1.2); Eosinophils Percent Auto 0.1 % (0-4.4); Hematocrit 47.9 % (42.0-52.0); Hemoglobin 16.6 g/dL (14.0-18.0); Immature Granulocyte Absolute 0.19 K/mm3 (0.00-0.031); Immature Granulocyte Percent A 1.6 % (0-0.5); Lymphocytes Absolute Auto 3.16 K/mm3 (0.9-3.2); Lymphocytes Percent Auto 26.5 % (18.3-44.2); Mean Corpuscular HGB Conc 34.7 g/dl (32-36); Mean Corpuscular Hemoglobin 30.4 pg (26-34); Mean Corpuscular Volume 87.7 fl (80-100); Mean Platelet Volume 10.1 fl (7.4-10.4); Monocytes Absolute Auto 1.4 K/mm3 (0.1-0.6); Monocytes Percent Auto 11.7 % (2.6-8.5); Neutrophils Absolute Auto 7.1 K/mm3 (1.3-6.7); Neutrophils Percent Auto 59.7 % (45.5-73.1); Platelet Count Result 508 k/mm3 (150-375); Red Blood Count 5.46 M/mm3 (4.6-6.20); White Blood Count 11.9 K/mm3 (4.5-10.0)
[2020-05-29 22:15] LABS: Alanine Aminotransferase 25 U/L (4-50); Albumin Level 4.3 g/dL (3.5-5.1); Alkaline Phosphatase 58 U/L (38-126); Anion Gap 15 mmol/L (8-16); Aspartate Amino Transferase 27 U/L (17-59); Bilirubin,Total 0.4 mg/dL (0.2-1.3); Blood Urea Nitrogen 16 mg/dL (9-20); Calcium 9.7 mg/dL (8.4-10.2); Carbon Dioxide 23 mmol/L (22-30); Chloride 101 mmol/L (98-107); Estimated CRCL calculation 101 ml/min; Estimated Glomerular Filt Rate > 60; Glucose 113 mg/dL (75-110); Lactic Acid Reflex 0.7 mmol/L (0.7-2.1); Sodium 139 mmol/L (137-145)
--- NOTE | 2020-05-29 22:51 | ED.GENADULT ---
HPI - General Adult General Chief complaint: Abdominal Pain Stated complaint: abd pain, n/v Time Seen by Provider: 05/29/20 20:47 History of Present Illness HPI narrative: Patient is a 39-year-old gentleman who presents emergency room with chief complaint of abdominal pain. Patient reports he has history of ulcerative colitis and was recently admitted to the hospital for a UC flare. Patient states he was starting to feel better and decided to come home and noticed that he started having worsening cramping throughout his abdomen. Patient states that he has had blood in his stool and has had a mucus type bowel movements. Patient denies vomiting states has not had fevers reports that he is followed by gastroenterology. Related Data Allergies Allergy/AdvReac Type Severity Reaction Status Date / Time No Known Allergies Allergy Unverified 03/06/19 18:32 Review of Systems Review of Systems: Narrative: A 10 system review of systems was completed on the patient and is negative except for what is stated in the HPI. Nursing and ancillary documentation was reviewed. [facility] Past Medical History Medical History Inflammatory bowel disease Pulmonary embolism Social History Social History Smoking status: Never smoker Gender identity (if verbalized by the patient): Male Exam Narrative: Exam Narrative: GENERAL: Well-appearing, well-nourished, and in no acute distress. HEAD: Normocephalic, atraumatic. EYES: PERRLA and EOMI. ENT: Nares clear, no rhinorrhea or epistaxis. Mucous membranes moist. NECK: Supple. CHEST: Clear to auscultation. No respiratory distress. HEART: Regular rate and rhythm. No murmur heard. Normal peripheral pulses. ABDOMEN: Soft, diffusely tender to palpation nondistended, normal active bowel sounds. EXTREMITIES: Normal range of motion. No edema. SKIN: Warm, dry, no rash. NEURO: No focal deficits. Alert and oriented x3. PSYCH: Normal mood and affect. Course Course Emergency Course: CT scan shows evidence of pancolitis. The case was discussed with Dr. briscoe the patient's cupola patcher helper who recommended starting IV steroids on the patient and the patient will be admitted to the hospitalist service Vital Signs Vital signs: Vital Signs Temperature 36.3 C L 05/29/20 20:35 Pulse Rate 78 05/29/20 20:35 Respiratory Rate 22 H 05/29/20 20:35 Blood Pressure 160/96 H 05/29/20 20:35 Pulse Oximetry 100 05/29/20 20:35 Temperature 36.3 C L 05/29/20 20:35 Pulse Rate 78 05/29/20 20:35 Respiratory Rate 22 H 05/29/20 20:35 Blood Pressure 160/96 H 05/29/20 20:35 Pulse Oximetry 100 05/29/20 20:35 Medical Decision Making Vital Signs Vital Signs: Vital Signs Temperature 36.3 C L 05/29/20 20:35 Pulse Rate 78 05/29/20 20:35 Respiratory Rate 22 H 05/29/20 20:35 Blood Pressure 160/96 H 05/29/20 20:35 Pulse Oximetry 100 05/29/20 20:35 Temperature 36.3 C L 05/29/20 20:35 Pulse Rate 78 05/29/20 20:35 Respiratory Rate 22 H 05/29/20 20:35 Blood Pressure 160/96 H 05/29/20 20:35 Pulse Oximetry 100 05/29/20 20:35 Lab Data Result diagrams: 05/29/20 21:52 05/29/20 21:52 Labs: Lab Results 05/29/20 05/29/20 05/29/20 Range/Units 21:52 21:52 21:52 WBC 11.9 H (4.5-10.0) K/mm3 RBC 5.46 (4.6-6.20) M/mm3 Hgb 16.6 (14.0-18.0) g/dL Hct 47.9 (42.0-52.0) % MCV 87.7 (80-100) fl MCH 30.4 (26-34) pg MCHC 34.7 (32-36) g/dl RDW 13.0 (11.5-14.5) % Plt Count 508 H D (150-375) k/mm3 MPV 10.1 (7.4-10.4) fl Immature Gran % (Auto) 1.6 H (0-0.5) % Neut % (Auto) 59.7 (45.5-73.1) % Lymph % (Auto) 26.5 (18.3-44.2) % [place] % (Auto) 11.7 H (2.6-8.5) % Eos % (Auto) 0.1 (0-4.4) % Baso % (Auto) 0.4 (0.2-1.2) % Lymph # (Auto) 3.16 (0.9-3.2) K/mm3
[2020-05-29] MEDS: methylPREDNISolone SOD SUCC 125 MG VIAL IV PUSH (23:58)
--- NOTE | 2020-05-29 23:59 | PM.IMHP ---
H&P: HPI History of Present Illness Date/Time: 05/29/20 23:59 Chief Complaint: abdominal pain Narrative: This is a 39 year old male with known history of Inflammatory Bowel Disease, Ulcerative colitis diagnosed 10 years ago and just discharged from our Hospitalist service this past weekend after being treated for a flare and now returned with worsening diffuse abdominal pain. Associated symptoms include nausea, vomiting, and bloody stools. He reports having 7-8 bloody stools today. He denies any significant fevers, coughing, chest pain, shortness of breath, LE swelling or pain. He has only been drinking fluids since he was discharged home. CT abd/pelvis demonstrated persistent vincent colitis. ER provider has consulted Gastroenterology. We have been asked to admit the patient to the hospital for his severe abdominal pain and ongoing UC flare. He was treated in the ER with IV dilaudid, IV fluids and IV solumedrol. No other complaints. Review of Systems Review of Systems: All systems reviewed & are unremarkable except as noted in HPI and below PMFSH Past Medical History Medical History Abdominal pain Anxiety Bloody diarrhea Deep venous thrombosis (~02/2019) History of pancreatitis History of pulmonary embolism Inflammatory bowel disease Nausea and vomiting in adult Pulmonary embolism Pulmonary embolism (~02/2019) Ulcerative colitis Surgical History Surgical History History of knee surgery History right knee surgery/washout secondary to joint infection. Family History Family History Sibling Inflammatory bowel disease Mother Inflammatory bowel disease Sibling Ulcerative colitis Mother , Mother from an overdose at age 52. No problems noted. Father , Father was morbidly obese and from complications of an infection. No problems noted. Social History Social History Social History: Lives in [place] with his fiancee and children. He has not worked for several years due to his ulcerative colitis. He chews tobacco. Will drink heavily on the weekends. Occasional marijuana use. His dustin Kaplan is his surrogate decision maker and he wishes to be a full code. Smoking status: Never smoker Second hand tobacco smoke exposure: No Alcohol intake: current Substance use: current Substance use type: marijuana Other substance usage details: Occasionally smokes marijuana/drinks alcohol Last use: 05/17/2020 Spiritual care concerns: No Meds Home Medications and Allergies Home Medications Medication Instructions Recorded Confirmed Type ondansetron 4 mg PO Q6H PRN #7 tablet 01/24/20 05/30/20 Rx lorazepam 1.5 mg PO BID PRN 05/16/20 05/24/20 History zolpidem 10 mg PO HS 05/16/20 05/24/20 History Humira Pen 40 mg SUBCUT [id number] 05/24/20 05/24/20 History buspirone 10 mg PO BID 05/24/20 05/25/20 History prednisone See Rx Instructions .ROUTE 05/25/20 Rx .COMPLEX #180 tablet adalimumab [Humira Pen] 40 mg SUBCUT [id number] 05/30/20 05/30/20 History buspirone 10 mg PO TID 05/30/20 05/30/20 History escitalopram oxalate 10 mg PO DAILY 05/30/20 05/30/20 History lorazepam 0.5 mg PO BID PRN 05/30/20 05/30/20 History zolpidem 10 mg PO HS 05/30/20 05/30/20 History Allergies Allergy/AdvReac Type Severity Reaction Status Date / Time No Known Allergies Allergy Verified 05/30/20 08:54 Vital Signs Vital Signs - 24 hr 05/29/20 20:35 Temperature 36.3 C L Pulse Rate 78 Respiratory Rate 22 H Blood Pressure 160/96 H Pulse Oximetry 100 Exam Const: General: cooperative, alert, awake and ill appearing Nutritional Appearance: overweight Orientation/consciousness: patient oriented x3 HENMT: Head: normal to inspection General nose exam: Viktoria
--- NOTE | 2020-05-30 00:33 | PC.NURSE ---
KAILASHAR faxed at [phone] and 3rd Med/Surg attempted to contact for report at that time
[2020-05-30 00:49] VITALS: BP 132/79; PULSE 60; RESP 18; O2SAT 97
[2020-05-30] MEDS: SODIUM CHLORIDE 0.9% IV 1,000 ML 125 ML IV CONT ×2 (00:59→15:43)
--- NOTE | 2020-05-30 01:00 | ADMGEN ---
This patient, Popeye Hernandez II, was admitted to Medical Room 343-01. Patient/family oriented to hospital policies and general routines including ID bracelet, bed and alarms, visiting hours, pain management, procedures, bathroom and other care routines, personal items, smoking policy, room service/diet, and visiting hours. Information on how to activate the Rapid Response Team has been discussed. Patient/Family are encouraged to report perceived risks to care and to ask questions if they do not understand what they are told or what they should do.
[2020-05-30] MEDS: HYDROmorphone HCL INJ (*CRX) 1 MG/ML SYR IV PUSH ×3 (01:05→07:31)
[2020-05-30 02:24] VITALS: BP 127/98; PULSE 86; RESP 14; TEMP 36.7; O2SAT 98
[2020-05-30 02:27] VITALS: BP 127/98; PULSE 86; RESP 14; TEMP 36.7; O2SAT 98
[2020-05-30 05:29] VITALS: BP 141/66; PULSE 51; RESP 14; TEMP 36.2; O2SAT 96
[2020-05-30 05:47] LABS: Basophils Percent Auto 0.4 % (0.2-1.2); Eosinophils Percent Auto 0.1 % (0-4.4); Hemoglobin 14.5 g/dL (14.0-18.0); Immature Granulocyte Absolute 0.16 K/mm3 (0.00-0.031); Lymphocytes Absolute Auto 1.27 K/mm3 (0.9-3.2); Lymphocytes Percent Auto 15.7 % (18.3-44.2); Mean Corpuscular Volume 90.9 fl (80-100); Mean Platelet Volume 9.5 fl (7.4-10.4); Monocytes Absolute Auto 0.3 K/mm3 (0.1-0.6); Monocytes Percent Auto 3.5 % (2.6-8.5); Neutrophils Absolute Auto 6.3 K/mm3 (1.3-6.7); Neutrophils Percent Auto 78.3 % (45.5-73.1); Platelet Count Result 369 k/mm3 (150-375); Red Blood Count 4.84 M/mm3 (4.6-6.20); Red Cell Distribution Width 13.1 % (11.5-14.5); White Blood Count 8.1 K/mm3 (4.5-10.0)
[2020-05-30 06:04] LABS: Anion Gap 7 mmol/L (8-16); Blood Urea Nitrogen 18 mg/dL (9-20); Calcium 8.8 mg/dL (8.4-10.2); Carbon Dioxide 27 mmol/L (22-30); Chloride 104 mmol/L (98-107); Estimated CRCL calculation 101 ml/min; Estimated Glomerular Filt Rate > 60; Glucose 137 mg/dL (75-110); Magnesium 2.1 mg/dL (1.6-2.3); Potassium 4.8 mmol/L (3.4-5.0); Sodium 138 mmol/L (137-145)
[2020-05-30 08:19] LABS: CRP 2.7 mg/dL (<1.0)
--- NOTE | 2020-05-30 08:24 | PM.IMPN ---
Progress Note: A&P Assessment and Plan (1) Pancolitis: Code(s): K51.00 - Ulcerative (chronic) pancolitis without complications Status: Acute Assessment and Plan: Evident on CT imaging and consistent with history of UC. Patient given IV steroids in ED and GI consulted from ED; appreciate recommendations. Pain seems to be reasonable currently, but frequently getting IV narcotics. Will do IV solumedrol 20 mg Q8hr for now until further input from GI Start 40 mg Lovenox for VTE ppx as Hgb is stable and patient has history of VTE associated with UC Encouraged IV tylenol for pain; lowered IV dilaudid to 0.5 mg IV Q3 for severe pain for now Continue IV fluids NPO status; resume home meds when off NPO status Zofran as needed for nausea Monitor labs Will await further recommendation from GI Monitor closely (2) Thrombocytosis: Code(s): D47.3 - Essential (hemorrhagic) thrombocythemia Status: Acute Assessment and Plan: Appears to have resolved. 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 Patient states his pain is reasonable at the moment, although nursing has reported that he has needed routine IV opioids overnight and this morning. We discussed trying to refrain from opioids if at all possible and he seemed reluctant but willing to at least try IV tylenol for now. His last BM was 0700 this morning which was bright red blood. He is unable to quantify how much blood is lost from each BM, but notes he had at least 24 BMs yesterday. He gets hot/chills during his episodes of pain and has had associated N/V with nonbloody bile-appearing emesis. Otherwise no other complaints. Denies myalgias/arthralgias, headaches, dizziness, lightheadedness, cp/palpitations, sob/cough,dysuria, hematuria, cloudy urine, calf pain/swelling. Review of Systems Review of Systems: All systems reviewed & are unremarkable except as noted in HPI and below Exam Narrative: Exam Narrative: General: Patient resting supine in bed in no acute distress. HEENT: Normocephalic, EOMI. Cardiovascular: Rate and rhythm are regular. No notable murmur, rub, or gallop. Respiratory: Lungs clear to auscultation all rubio. Non-labored breathing. Abdomen: guarding, mild diffuse TTP, bowel sounds present. Extremities: Peripheral pulses intact. No edema. NTTP b/l calves Neuro: No focal neurological deficits. Speech is clear. Objective Data Vital Signs Vital Signs: Last Vital Signs Temp 97.2 F L 05/30/20 05:29 Pulse 51 L 05/30/20 05:29 Resp 14 05/30/20 05:29 BP 141/66 H 05/30/20 05:29 Pulse Ox 96 05/30/20 05:29 Intake/Output Intake/Output: Intake & Output 05/27/20 05/28/20 05/29/20 05/30/20 23:59 23:59 23:59 23:59 Intake Total 1000 Output Total 800 Balance 1000 -800 Meds/Results Medications: Active Medications Generic Name Dose Route Start Last Admin Trade Name Freq PRN Reason Stop Dose Admin Enoxaparin Sodium 40 mg 05/30/20 09:00 Enoxaparin 40 Mg/0.4 Ml Syringe SUB-Q DAILY DONALD Hydromorphone HCl 0.5 mg 05/30/20 07:58 Hydromorphone Hcl Inj (*Crx) 1 Mg/Ml Syr IV PUSH Q3H PRN Pain Rated 6 or Greater Sodium Chloride 1,000 mls @ 100 mls/hr 05/29/20 23:40 05/30/20 00:59 Normal Saline Iv IV CONT 125 mls/hr .Q10H DONALD Administration Acetaminophen 1,000 mg in 100 mls @ 400 mls/hr 05/30/20 07:57 Ofirmev 1,000 Mg Ivpb IVPB 05/31/20 07:58 Q6H PRN Pain Rated 5 or Less Methylprednisolone Sodium Succinate 20 mg 05/30/20 08:00 Methylprednisolone Sod Succ 40 Mg Vial IV PUSH Q8HR DONALD Radiology Results: ITS Impressions Abdomen/Pelvis CT 05/29/20 22:52 IMPRESSION: Persistent vincent colitis, appe
[2020-05-30 08:29] LABS: Erythrocyte Sedimentation Rate 24 mm/hr (0-20)
[2020-05-30] MEDS: ONDANSETRON INJ 4 MG/2 ML VIAL IV PUSH ×3 (10:30→20:11)
[2020-05-30] MEDS: methylPREDNISolone SOD SUCC 40 MG VIAL 20 MG IV PUSH ×3 (10:31→21:42)
[2020-05-30] MEDS: ENOXAPARIN 40 MG/0.4 ML SYRINGE SUB-Q (10:31)
[2020-05-30] MEDS: HYDROmorphone HCL INJ (*CRX) 1 MG/ML SYR 0.5 MG IV PUSH ×4 (11:50→21:49)
[2020-05-30 12:14] VITALS: BMI 29.1
--- NOTE | 2020-05-30 13:55 | WPDGICN ---
Assessment and Plan Assessment and plan (1) Exacerbation of ulcerative colitis: Code(s): K51.90 - Ulcerative colitis, unspecified, without complications Status: Acute Assessment and Plan: UC flare, continue with iv steroids and pain management esr and crp elevated, pending stool samples if patient stays the weekend then we can do colonoscopy Tuesday (last hospitalization I offered to keep him in the hospital but he left after feeling better and he was supposed to see Dr Arenas as outpatient) Since he missed his humira 5 days ago, I recommend to take 2 shots (80mg total) unique then resume as usual 40mg every 2 weeks. Also may need humira through and antibodies level (sometimes dose or frequency of humira can be increase if low levels in serum but if positive antibodies then consider to try other biologics like entyvio, xeljanz, etc). He tried in the past imuran and did not work will start also in the meantime on mesalamine. (2) Nausea and vomiting in adult: Code(s): R11.2 - Nausea with vomiting, unspecified Status: Acute Assessment and Plan: better, antiemetics prn still not appetite, advance diet as tolerated (3) Bloody diarrhea: Code(s): R19.7 - Diarrhea, unspecified Status: Acute Assessment and Plan: ideally colonoscopy soon, pending stools (4) Abdominal pain: Code(s): R10.9 - Unspecified abdominal pain Status: Acute GI Consult Note Consult date/time: 05/30/20 13:55 Reason for consult: UC flare HPI: Popeye Copeland II is a 39 year old male who I met last weekend when he was admitted with UC flare. He has ulcerative colitis diagnosed in 2009 [address] used to [address] Barros with his last colonoscopy about 2.5 years ago after his last hospitalization for UC, also had PE more than a year ago but he is not longer on blood thinners. He switched to Dr Arenas about 1.5 years ago and started him on humira about 8 months ago (using every 2 weeks), also had EGD by Dr Arenas ~1 month ago because reflux. He says that initially with Dr Barros was only on steroids intermittently, also tried imuran but did not help then on humira. After last hospitalization sent home with steroids and fell ok for 2 days but again with nausea and vomiting, more abdominal pain taking tylenol at home and blood stools again. CT scan showed same pancolitis and admitted to hospital again. ESR 24, CRP 2.7. wbc 11.7. Started on iv steroids, pain meds and feeling better today. He says that missed his humira dose about 5 days ago and he is supposed to contact his pharmacy. Review of Systems Constitutional: Constitutional: Denies headache(s) and Denies night sweats Eyes: Eyes: Denies blurry vision ENT: Reports Normal hearing present, Denies headache(s) and Denies neck pain Cardiovascular: Cardiovascular: Denies chest pain and Denies dyspnea Respiratory: Respiratory: Denies dyspnea Gastrointestinal: Gastrointestinal: Reports abdominal pain, Reports hematochezia, Reports nausea and Reports vomiting Genitourinary: Genitourinary: Denies dysuria Musculoskeletal: Musculoskeletal: Denies neck pain Integumentary/Breasts: Skin/Breast: Denies dry skin Neurologic: Reports Normal hearing present, Denies headache(s) and Denies weakness Psychiatric: Psychiatric: Reports anxiety Endocrine: Endocrine: Denies change in body appearance Hematologic/Lymphatic: Hematologic/Lymphatic: Denies easy bleeding Allergic/Immunologic: Allergic/Immunologic: Denies urticaria PMFSH Past Medical History Medical History Inflammatory bowel disease Pulmonary embolism Surgical History Surgical History (Updated 05/30/20 @ 08:54 by Hoda Peterson) History of knee surgery History right knee surgery/washout secondary to joint infection. Family History Family History (System 05/30/20 @ 08:54 by Hoda Peterson) Sibling Inflammatory bowel disease Mother Inflammat
[2020-05-30 14:16] VITALS: BP 107/90; PULSE 51; RESP 16; TEMP 36.1; O2SAT 97
[2020-05-30] MEDS: LORazepam (*CRX) 0.5 MG TABLET PO (15:52)
[2020-05-30] MEDS: busPIRone HCL 10 MG TABLET PO (17:23)
[2020-05-30 18:15] LABS: Add Urine Microscopic? YES; Appearance Urine Clear (Clear); Bilirubin Urine Negative (Negative); Blood Urine Negative (Negative); Color Urine Yellow (Yellow); Glucose Urine UA Negative (Negative); Ketones Urine 1+ mg/dL (Negative); Leukocyte Esterase Ur Negative LEU/UL (Negative); Mucus Urine Few /lpf; Nitrate Urine Negative (Negative); Protein Urine Negative (Negative); Urobilinogen Urine Negative mg/dL (<2.0); WBC Urine 0-3 /hpf
[2020-05-30 18:18] LABS: Specific Grav Ur 1.031 (1.001-1.035)
[2020-05-30] MEDS: MESALAMINE 400 MG DELAYED RELEASE CAPSULE PO (18:59)
[2020-05-30 20:33] VITALS: BP 129/78; PULSE 51; RESP 16; TEMP 36.2; O2SAT 98
[2020-05-30] MEDS: ZOLPIDEM TARTRATE (*CRX) 5 MG TABLET 10 MG PO (21:44)
[2020-05-30] MEDS: SODIUM CHLORIDE 0.9% IV 1,000 ML 100 ML IV CONT (23:49)
[2020-05-31] MEDS: HYDROmorphone HCL INJ (*CRX) 1 MG/ML SYR 0.5 MG IV PUSH ×6 (02:24→14:06)
[2020-05-31] MEDS: LORazepam (*CRX) 0.5 MG TABLET PO (05:00)
[2020-05-31] MEDS: methylPREDNISolone SOD SUCC 40 MG VIAL 20 MG IV PUSH ×3 (05:01→21:33)
[2020-05-31 05:15] VITALS: PULSE 58; RESP 20; TEMP 36.1; O2SAT 100
[2020-05-31] MEDS: ONDANSETRON INJ 4 MG/2 ML VIAL IV PUSH ×4 (05:23→20:08)
[2020-05-31 06:25] LABS: Basophils Percent Auto 0.3 % (0.2-1.2); Hematocrit 44.1 % (42.0-52.0); Hemoglobin 14.7 g/dL (14.0-18.0); Immature Granulocyte Absolute 0.12 K/mm3 (0.00-0.031); Immature Granulocyte Percent A 1.4 % (0-0.5); Lymphocytes Absolute Auto 2.04 K/mm3 (0.9-3.2); Lymphocytes Percent Auto 23.6 % (18.3-44.2); Mean Corpuscular HGB Conc 33.3 g/dl (32-36); Mean Corpuscular Hemoglobin 29.5 pg (26-34); Mean Corpuscular Volume 88.6 fl (80-100); Mean Platelet Volume 10.1 fl (7.4-10.4); Monocytes Absolute Auto 1.4 K/mm3 (0.1-0.6); Monocytes Percent Auto 15.6 % (2.6-8.5); Neutrophils Absolute Auto 5.1 K/mm3 (1.3-6.7); Neutrophils Percent Auto 59.1 % (45.5-73.1); Platelet Count Result 428 k/mm3 (150-375); Red Blood Count 4.98 M/mm3 (4.6-6.20); Red Cell Distribution Width 13.1 % (11.5-14.5); White Blood Count 8.7 K/mm3 (4.5-10.0)
[2020-05-31 06:36] LABS: Anion Gap 11 mmol/L (8-16); Blood Urea Nitrogen 17 mg/dL (9-20); Calcium 8.8 mg/dL (8.4-10.2); Carbon Dioxide 22 mmol/L (22-30); Chloride 103 mmol/L (98-107); Estimated CRCL calculation 124 ml/min; Estimated Glomerular Filt Rate > 60; Glucose 108 mg/dL (75-110); Potassium 4.1 mmol/L (3.4-5.0); Sodium 136 mmol/L (137-145)
[2020-05-31 06:41] VITALS: BP 149/83
[2020-05-31] MEDS: ENOXAPARIN 40 MG/0.4 ML SYRINGE SUB-Q (08:05)
--- NOTE | 2020-05-31 09:17 | PM.IMPN ---
Progress Note: A&P Assessment and Plan (1) Exacerbation of ulcerative colitis: Code(s): K51.90 - Ulcerative colitis, unspecified, without complications Status: Acute Assessment and Plan: Evident pancolitis on CT imaging and consistent with history of UC. Patient given IV steroids in ED and GI consulted from ED; appreciate recommendations. Pain seems to be reasonable currently, but frequently getting IV narcotics again today. Diet to be advanced today. Plans for colonoscopy on Tuesday per GI Continue IV solumedrol 20 mg Q8hr, mesalamine and home Humira per GI rec Continue 40 mg Lovenox for VTE ppx as Hgb is stable and patient has history of VTE associated with UC Encourage IV tylenol for pain; continue IV dilaudid to 0.5 mg IV Q2hr for severe pain Continue IV fluids Diet advanced per GI Zofran as needed for nausea Monitor labs Will await further recommendation from GI Monitor closely (2) Thrombocytosis: Code(s): D47.3 - Essential (hemorrhagic) thrombocythemia Status: Acute Assessment and Plan: 428 this morning. 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 Patient states his pain is reasonable at the moment, although had adjustments in frequency in narcotics overnight as his medication had been wearing off too quickly. He no longer is reporting blood in stool, but still having brown diarrhea. His pain is currently 3/10. No other complaints at the moment. He notes his is trying to get his Humira delivered to the hospital to take during his hospitalization. Denies myalgias/arthralgias, headaches, dizziness, lightheadedness, cp/palpitations, sob/cough, dysuria, hematuria, cloudy urine, calf pain/swelling. Review of Systems Review of Systems: All systems reviewed & are unremarkable except as noted in HPI and below Exam Narrative: Exam Narrative: General: Patient resting supine in bed in no acute distress. HEENT: Normocephalic, EOMI. Cardiovascular: Rate and rhythm are regular. No notable murmur, rub, or gallop. Respiratory: Lungs clear to auscultation all rubio. Non-labored breathing. Abdomen: guarding, mild left sided TTP, bowel sounds hypoactive Extremities: Peripheral pulses intact. No edema. NTTP b/l calves Neuro: No focal neurological deficits. Speech is clear. Objective Data Vital Signs Vital Signs: Last Vital Signs Temp 97 F L 05/31/20 05:15 Pulse 58 L 05/31/20 05:15 Resp 20 05/31/20 05:15 BP 149/83 H 05/31/20 06:41 Pulse Ox 100 05/31/20 05:15 Intake/Output Intake/Output: Intake & Output 05/28/20 05/29/20 05/30/20 05/31/20 23:59 23:59 23:59 23:59 Intake Total 1000 2100 623 Output Total 1400 Balance 1000 700 623 Meds/Results Medications: Active Medications Generic Name Dose Route Start Last Admin Trade Name Freq PRN Reason Stop Dose Admin Buspirone HCl 10 mg 05/30/20 17:00 05/30/20 17:23 Buspirone Hcl 10 Mg Tablet PO 10 mg TID DONALD Administration Enoxaparin Sodium 40 mg 05/30/20 09:00 05/31/20 08:05 Enoxaparin 40 Mg/0.4 Ml Syringe SUB-Q 40 mg DAILY DONALD Administration Escitalopram Oxalate 10 mg 05/31/20 09:00 Escitalopram Oxalate 10 Mg Tablet PO DAILY DONALD Hydromorphone HCl 0.5 mg 05/31/20 07:34 05/31/20 08:02 Hydromorphone Hcl Inj (*Crx) 1 Mg/Ml Syr IV PUSH 0.5 mg Q2H PRN Administration Pain Rated 6 or Greater Sodium Chloride 1,000 mls @ 100 mls/hr 05/29/20 23:40 05/31/20 05:02 Normal Saline Iv IV CONT 100 mls/hr .Q10H DONALD Infusion Lorazepam 0.5 mg 05/30/20 14:22 05/31/20 05:00 Lorazepam (*Crx) 0.5 Mg Tablet PO 0.5 mg BID PRN Administration Anxiety Mesalamine 400 mg 05/30/20
[2020-05-31] MEDS: MESALAMINE 400 MG DELAYED RELEASE CAPSULE PO (09:43)
[2020-05-31] MEDS: busPIRone HCL 10 MG TABLET PO (09:43)
[2020-05-31] MEDS: ESCITALOPRAM OXALATE 10 MG TABLET PO (09:44)
[2020-05-31] MEDS: SODIUM CHLORIDE 0.9% IV 1,000 ML 100 ML IV CONT ×2 (10:04→20:06)
--- NOTE | 2020-05-31 12:20 | WPDGIPROGNO ---
Progress Note: A&P Assessment and Plan (1) Exacerbation of ulcerative colitis: Code(s): K51.90 - Ulcerative colitis, unspecified, without complications Status: Acute Assessment and Plan: iv steroids, pain management he is trying to get his humira delivered here also stared on mesalamine if still in hospital then will do colonoscopy Tuesday (2) Bloody diarrhea: Code(s): R19.7 - Diarrhea, unspecified Status: Acute Assessment and Plan: stool samples ordered (3) Nausea and vomiting in adult: Code(s): R11.2 - Nausea with vomiting, unspecified Status: Acute Assessment and Plan: antiemetics prn (4) Abdominal pain: Code(s): R10.9 - Unspecified abdominal pain Status: Acute Assessment and Plan: pain meds as needed (5) History of pulmonary embolism: Code(s): Z86.711 - Personal history of pulmonary embolism Status: Acute Assessment and Plan: on dvt prophylaxis Subjective Date/time seen: 05/31/20 12:20 Interval history: had more pain last night and iv pain med frequency was increased, still with diarrhea but no blood in stools. Nauseous but tried ensure Review of Systems Review of Systems: All systems reviewed & are unremarkable except as noted in HPI and below Exam Const: General: comfortable and no acute distress HENMT: General nose exam: Normal nares present Eyes: General: appearance normal, both eyes and all related structures Neck: Neck: no JVD Resp: Auscultation: clear to auscultation bilaterally Cardio: Rate: regular rate Rhythm: regular rhythm GI: Inspection: non-distended GI Palp: Yes Soft to palpation and Yes Tenderness to palpation present (GI) (mild ttp, no rebound or guarding) Percussion: No Fluid wave present Auscultation: normal bowel sounds Skin: General skin exam: normal color Neuro: General: gait normal Speech: normal speech Extrem: General: normal to inspection Psych: Affect: Anxious affect present Objective Data Vital Signs Vital Signs: Vital Signs - 24 hr 05/30/20 14:16 05/30/20 20:33 05/31/20 05:15 Temperature 97.0 F L 97.1 F L 97 F L Pulse Rate 51 L 51 L 58 L Respiratory Rate 16 16 20 Blood Pressure 107/90 129/78 Pulse Oximetry 97 98 100 05/31/20 06:41 Temperature Pulse Rate Respiratory Rate Blood Pressure 149/83 H Pulse Oximetry Intake/Output Intake/Output: Intake & Output 05/28/20 05/29/20 05/30/20 05/31/20 23:59 23:59 23:59 23:59 Intake Total 1000 2100 1340 Output Total 1400 Balance 2214 498 1346 Meds/Results Medications: Active Medications Generic Name Dose Route Start Last Admin Trade Name Freq PRN Reason Stop Dose Admin Buspirone HCl 10 mg 05/30/20 17:00 05/31/20 09:43 Buspirone Hcl 10 Mg Tablet PO 10 mg TID DONALD Administration Enoxaparin Sodium 40 mg 05/30/20 09:00 05/31/20 08:05 Enoxaparin 40 Mg/0.4 Ml Syringe SUB-Q 40 mg DAILY ODNALD Administration Escitalopram Oxalate 10 mg 05/31/20 09:00 05/31/20 09:44 Escitalopram Oxalate 10 Mg Tablet PO 10 mg DAILY DONALD Administration Hydromorphone HCl 0.5 mg 05/31/20 07:34 05/31/20 12:06 Hydromorphone Hcl Inj (*Crx) 1 Mg/Ml Syr IV PUSH 0.5 mg Q2H PRN Administration Pain Rated 6 or Greater Sodium Chloride 1,000 mls @ 100 mls/hr 05/29/20 23:40 05/31/20 10:04 Normal Saline Iv IV CONT 100 mls/hr .Q10H DONALD Administration Lorazepam 0.5 mg 05/30/20 14:22 05/31/20 05:00 Lorazepam (*Crx) 0.5 Mg Tablet PO 0.5 mg BID PRN Administration Anxiety Mesalamine 400 mg 05/30/20 18:50 05/31/20 09:43 Mesalamine 400 Mg Delayed Release Capsule PO 400 mg TID DONALD Administration Methylprednisolone Sodium Succinate 20 mg 05/30/20 08:00 05/31/20 05:01 Methylprednisolone Sod Succ 40 Mg Vial IV PUSH 20 mg Q8HR DONALD Administration Ondansetron HCl 4 mg 05/30/20 09:55 05/31/20 12:06 Ondansetron Inj 4 Mg/2 Ml Vial IV PUSH
[2020-05-31] MEDS: KETOROLAC 15 MG/ML VIAL (*BKC) IV PUSH (13:07)
[2020-05-31 13:34] VITALS: BP 186/118; PULSE 96; RESP 24; O2SAT 97
[2020-05-31] MEDS: hydrALAZINE HCL 20 MG/ML VIAL 10 MG IV PUSH (14:01)
[2020-05-31] MEDS: LORazepam INJ (*CRX) 2 MG/ML VIAL 0.5 MG IV PUSH ×2 (14:09→20:09)
--- NOTE | 2020-05-31 14:55 | PHAR ---
HOME MED VERIFIED = [facility] [id number] HUMIRA PEN 40 MG/0.8 ML
[2020-05-31] MEDS: HYDROmorphone HCL INJ (*CRX) 1 MG/ML SYR IV PUSH ×3 (16:08→21:30)
[2020-05-31 21:18] VITALS: BP 149/90; PULSE 80; RESP 18; TEMP 36.9; O2SAT 100
[2020-05-31] MEDS: CALCIUM CARBONATE (TUMS) 500 MG (200 MG ELEMENTAL) PO (21:30)
[2020-06-01] MEDS: ZOLPIDEM TARTRATE (*CRX) 5 MG TABLET 10 MG PO ×2 (00:02→22:12)
[2020-06-01] MEDS: HYDROmorphone HCL INJ (*CRX) 1 MG/ML SYR IV PUSH ×11 (00:03→22:13)
[2020-06-01] MEDS: ONDANSETRON INJ 4 MG/2 ML VIAL IV PUSH ×6 (00:09→20:02)
[2020-06-01] MEDS: LORazepam INJ (*CRX) 2 MG/ML VIAL 0.5 MG IV PUSH ×4 (02:25→20:02)
[2020-06-01] MEDS: CALCIUM CARBONATE (TUMS) 500 MG (200 MG ELEMENTAL) PO ×2 (03:31→12:21)
[2020-06-01 04:29] VITALS: BP 146/87; PULSE 67; RESP 16; TEMP 36.6; O2SAT 96
[2020-06-01] MEDS: methylPREDNISolone SOD SUCC 40 MG VIAL 20 MG IV PUSH ×2 (05:51→13:18)
[2020-06-01] MEDS: SODIUM CHLORIDE 0.9% IV 1,000 ML 100 ML IV CONT ×2 (05:51→15:22)
[2020-06-01 06:20] LABS: Basophils Absolute Auto 0.1 K/mm3 (0.0-0.1); Basophils Percent Auto 0.5 % (0.2-1.2); Hematocrit 42.7 % (42.0-52.0); Hemoglobin 14.3 g/dL (14.0-18.0); Immature Granulocyte Absolute 0.25 K/mm3 (0.00-0.031); Immature Granulocyte Percent A 2.6 % (0-0.5); Lymphocytes Absolute Auto 1.19 K/mm3 (0.9-3.2); Lymphocytes Percent Auto 12.2 % (18.3-44.2); Mean Corpuscular HGB Conc 33.5 g/dl (32-36); Mean Corpuscular Hemoglobin 30.2 pg (26-34); Mean Corpuscular Volume 90.1 fl (80-100); Mean Platelet Volume 9.7 fl (7.4-10.4); Monocytes Absolute Auto 1.2 K/mm3 (0.1-0.6); Monocytes Percent Auto 12.2 % (2.6-8.5); Neutrophils Absolute Auto 7.1 K/mm3 (1.3-6.7); Neutrophils Percent Auto 72.5 % (45.5-73.1); Platelet Count Result 363 k/mm3 (150-375); Red Blood Count 4.74 M/mm3 (4.6-6.20); Red Cell Distribution Width 13.1 % (11.5-14.5); White Blood Count 9.8 K/mm3 (4.5-10.0)
[2020-06-01 06:36] LABS: Anion Gap 7 mmol/L (8-16); Blood Urea Nitrogen 14 mg/dL (9-20); Calcium 8.6 mg/dL (8.4-10.2); Carbon Dioxide 24 mmol/L (22-30); Chloride 103 mmol/L (98-107); Estimated CRCL calculation 124 ml/min; Estimated Glomerular Filt Rate > 60; Glucose 108 mg/dL (75-110); Sodium 134 mmol/L (137-145)
[2020-06-01 07:22] LABS: Large Platelets Present; Ovalocytes 1+ (NORMAL)
[2020-06-01] MEDS: ENOXAPARIN 40 MG/0.4 ML SYRINGE SUB-Q (08:37)
--- NOTE | 2020-06-01 09:03 | PM.IMPN ---
Progress Note: A&P Assessment and Plan (1) Exacerbation of ulcerative colitis: Code(s): K51.90 - Ulcerative colitis, unspecified, without complications Status: Acute Assessment and Plan: Evident pancolitis on CT imaging and consistent with history of UC. Patient given IV steroids in ED and GI consulted from ED; appreciate recommendations. Pain seems to be reasonable currently, but had adjustment in his pain meds yesterday. Diet to be advanced today, although patient reluctant. Plans for colonoscopy on 06/02 per GI Continue IV solumedrol 20 mg Q8hr, mesalamine and home Humira per GI rec Continue 40 mg Lovenox for VTE ppx as Hgb is stable and patient has history of VTE associated with UC Encourage IV tylenol for pain; continue IV dilaudid to 1 mg IV Q2hr for severe pain per GI rec Continue IV fluids Diet advanced per GI Zofran as needed for nausea Monitor labs Will await further recommendation from GI Monitor closely (2) Thrombocytosis: Code(s): D47.3 - Essential (hemorrhagic) thrombocythemia Status: Acute Assessment and Plan: 363 this morning. 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 Patient states his pain is reasonable at the moment; pain 7/10. He had a rough afernoon yesterday, but thinks tums helped with his nausea. He is reluctant to try his home PO meds as he thinks this exacerbated his pain and nausea. No other complaint this morning. He gave himself this Humira shot this morning during our visit. Denies myalgias/arthralgias, headaches, dizziness, lightheadedness, cp/palpitations, sob/cough, dysuria, hematuria, cloudy urine, calf pain/swelling. Review of Systems Review of Systems: All systems reviewed & are unremarkable except as noted in HPI and below Exam Narrative: Exam Narrative: General: Patient resting supine in bed in no acute distress. Nursing in room at time of visit HEENT: Normocephalic, EOMI, MMM Cardiovascular: Rate and rhythm are regular. No notable murmur, rub, or gallop. Respiratory: Lungs clear to auscultation all rubio. Non-labored breathing. Abdomen: soft,, minimal diffuse, TTP. bowel sounds hypoactive Extremities: Peripheral pulses intact. No edema. NTTP b/l calves Neuro: No focal neurological deficits. Speech is clear. Objective Data Vital Signs Vital Signs: Vital Signs - 24 hr 05/31/20 13:34 05/31/20 21:18 06/01/20 04:29 Temperature 98.5 F 97.9 F Pulse Rate 96 80 67 Respiratory Rate 24 H 18 16 Blood Pressure 186/118 H 149/90 H 146/87 H Pulse Oximetry 97 100 96 Intake/Output Intake/Output: Intake & Output 05/29/20 05/30/20 05/31/20 06/01/20 23:59 23:59 23:59 23:59 Intake Total 1000 2100 2340 1240 Output Total 1400 800 Balance 9502 522 3640 1240 Meds/Results Medications: Active Medications Generic Name Dose Route Start Last Admin Trade Name Freq PRN Reason Stop Dose Admin Buspirone HCl 10 mg 05/30/20 17:00 06/01/20 08:36 Buspirone Hcl 10 Mg Tablet PO Not Given TID DONALD Calcium Carbonate 200 mg 05/31/20 21:19 06/01/20 03:31 Calcium Carbonate (Tums) 500 Mg (200 Mg Elemental) PO 200 mg Q6H PRN Administration Indigestion Enoxaparin Sodium 40 mg 05/30/20 09:00 06/01/20 08:37 Enoxaparin 40 Mg/0.4 Ml Syringe SUB-Q 40 mg DAILY DONALD Administration Escitalopram Oxalate 10 mg 05/31/20 09:00 06/01/20 08:36 Escitalopram Oxalate 10 Mg Tablet PO Not Given DAILY DONALD Hydralazine HCl 10 mg 05/31/20 13:32 05/31/20 14:01 Hydralazine Hcl 20 Mg/Ml Vial IV PUSH 10 mg Q8H PRN Administration Blood Pressure - High Hydromorphone HCl 1 mg 05/31/20 14:17 06/01/20 08:43 Hydromorphone Hcl Inj (*Crx
--- NOTE | 2020-06-01 09:44 | WPDGIPROGNO ---
Progress Note: A&P Assessment and Plan (1) Exacerbation of ulcerative colitis: Code(s): K51.90 - Ulcerative colitis, unspecified, without complications Status: Acute Assessment and Plan: iv steroids, pain management he received humira today and will order today adalimumab trough level and antibody then we can make a decision if need to make any changes on treatment. also started on mesalamine agreeable for colonoscopy tomorrow, will get biopsies and assess severity of colitis (2) Bloody diarrhea: Code(s): R19.7 - Diarrhea, unspecified Status: Acute Assessment and Plan: stool samples ordered colonoscopy tomorrow (3) Nausea and vomiting in adult: Code(s): R11.2 - Nausea with vomiting, unspecified Status: Acute Assessment and Plan: antiemetics prn (4) Abdominal pain: Code(s): R10.9 - Unspecified abdominal pain Status: Acute Assessment and Plan: pain meds as needed (5) History of pulmonary embolism: Code(s): Z86.711 - Personal history of pulmonary embolism Status: Acute Assessment and Plan: on dvt prophylaxis Subjective Date/time seen: 06/01/20 09:44 Interval history: yesterday again had more pain but more comfortable after increased pain meds. He also received dose of humira today (daughter brought it to hospital) Review of Systems Review of Systems: All systems reviewed & are unremarkable except as noted in HPI and below Exam Const: General: comfortable and no acute distress HENMT: General nose exam: Normal nares present Eyes: General: appearance normal, both eyes and all related structures Neck: Neck: no JVD Resp: Auscultation: clear to auscultation bilaterally Cardio: Rate: regular rate Rhythm: regular rhythm GI: Inspection: non-distended GI Palp: Yes Soft to palpation and Yes Tenderness to palpation present (GI) (mild ttp, no rebound or guarding) Percussion: No Fluid wave present Auscultation: normal bowel sounds Skin: General skin exam: normal color Neuro: General: gait normal Speech: normal speech Extrem: General: normal to inspection Psych: Affect: Anxious affect present Objective Data Vital Signs Vital Signs: Vital Signs - 24 hr 05/31/20 13:34 05/31/20 21:18 06/01/20 04:29 Temperature 98.5 F 97.9 F Pulse Rate 96 80 67 Respiratory Rate 24 H 18 16 Blood Pressure 186/118 H 149/90 H 146/87 H Pulse Oximetry 97 100 96 Intake/Output Intake/Output: Intake & Output 05/29/20 05/30/20 05/31/20 06/01/20 23:59 23:59 23:59 23:59 Intake Total 1000 2100 2340 1240 Output Total 1400 800 Balance 3659 081 0822 1240 Meds/Results Medications: Active Medications Generic Name Dose Route Start Last Admin Trade Name Freq PRN Reason Stop Dose Admin Buspirone HCl 10 mg 05/30/20 17:00 06/01/20 08:36 Buspirone Hcl 10 Mg Tablet PO Not Given TID DONALD Calcium Carbonate 200 mg 05/31/20 21:19 06/01/20 03:31 Calcium Carbonate (Tums) 500 Mg (200 Mg Elemental) PO 200 mg Q6H PRN Administration Indigestion Enoxaparin Sodium 40 mg 05/30/20 09:00 06/01/20 08:37 Enoxaparin 40 Mg/0.4 Ml Syringe SUB-Q 40 mg DAILY DONALD Administration Escitalopram Oxalate 10 mg 05/31/20 09:00 06/01/20 08:36 Escitalopram Oxalate 10 Mg Tablet PO Not Given DAILY DONALD Hydralazine HCl 10 mg 05/31/20 13:32 05/31/20 14:01 Hydralazine Hcl 20 Mg/Ml Vial IV PUSH 10 mg Q8H PRN Administration Blood Pressure - High Hydromorphone HCl 1 mg 05/31/20 14:17 06/01/20 08:43 Hydromorphone Hcl Inj (*Crx) 1 Mg/Ml Syr IV PUSH 1 mg Q2H PRN Administration Pain Rated 6 or Greater Sodium Chloride 1,000 mls @ 100 mls/hr 05/29/20 23:40 06/01/20 05:51 Normal Saline Iv IV CONT 100 mls/hr .Q10H DONALD Administration Lorazepam 0.5 mg 05/31/20 13:59 06/01/20 08:43 Lorazepam Inj (*Crx) 2 Mg/Ml Vial IV PUSH 0.5 mg Q6H PRN Administration Anxiety [place]
--- NOTE | 2020-06-01 10:39 | PCDIET ---
Nutrition Follow-Up Complete: Altered GI function as related to Pancolitis as evidenced by NPO Meet estimated nutritional needs Goal: Goal not met. Continue goal. Pt current nutrition is Clear Liquid Nutrition recommendation: agree. Recommend advancing to low fiber as tolerated Last recorded weight is 103 kg. Bowel Motility: 05/31 BM + Labs Reviewed:Na 134 Meds Noted: Milk of Mg, Dulcolax, Tums, Normal Saline, Solumedrol Additional Notes: Pt with UC and plans for colonoscopy tomorrow. Ate 100% of clear liquid tray today with Ensure clear. Recommend advancing diet as tolerated to low fiber after colonoscopy tomorrow. We will reassess every five days.
[2020-06-01 14:00] VITALS: BP 137/93; PULSE 78; RESP 18; TEMP 36.2; O2SAT 100
[2020-06-01] MEDS: PEG (High)/E-LYTE SOLN 4,000 ML BTL 4000 ML PO (17:12)
[2020-06-01] MEDS: BISACODYL 5 MG TABLET EC 20 MG PO (17:12)
[2020-06-01 19:35] VITALS: PULSE 88; RESP 18; O2SAT 100
[2020-06-01 19:53] VITALS: BP 170/127; PULSE 88; RESP 18; TEMP 36.1; O2SAT 100
[2020-06-02] VITALS (11 sets, daily range): BP systolic 118–167; BP diastolic 67–97; PULSE 68–101; RESP 16–20; TEMP 36.1–37.2; O2SAT 95–100
[2020-06-02] MEDS: ONDANSETRON INJ 4 MG/2 ML VIAL IV PUSH ×6 (00:32→22:48)
[2020-06-02] MEDS: HYDROmorphone HCL INJ (*CRX) 1 MG/ML SYR IV PUSH ×10 (00:33→22:48)
[2020-06-02] MEDS: methylPREDNISolone SOD SUCC 40 MG VIAL 20 MG IV PUSH ×4 (00:37→22:48)
[2020-06-02] MEDS: LORazepam INJ (*CRX) 2 MG/ML VIAL 0.5 MG IV PUSH ×4 (02:29→19:52)
[2020-06-02] MEDS: SODIUM CHLORIDE 0.9% IV 1,000 ML 100 ML IV CONT ×2 (03:40→16:26)
[2020-06-02 05:49] LABS: Basophils Absolute Auto 0.1 K/mm3 (0.0-0.1); Basophils Percent Auto 0.5 % (0.2-1.2); Eosinophils Percent Auto 0.1 % (0-4.4); Hematocrit 45.2 % (42.0-52.0); Hemoglobin 15.3 g/dL (14.0-18.0); Immature Granulocyte Absolute 0.21 K/mm3 (0.00-0.031); Immature Granulocyte Percent A 2.3 % (0-0.5); Lymphocytes Absolute Auto 0.97 K/mm3 (0.9-3.2); Lymphocytes Percent Auto 10.5 % (18.3-44.2); Mean Corpuscular HGB Conc 33.8 g/dl (32-36); Mean Corpuscular Hemoglobin 30.4 pg (26-34); Mean Corpuscular Volume 89.7 fl (80-100); Mean Platelet Volume 9.7 fl (7.4-10.4); Monocytes Percent Auto 10.6 % (2.6-8.5); Platelet Count Result 379 k/mm3 (150-375); Red Blood Count 5.04 M/mm3 (4.6-6.20); Red Cell Distribution Width 13.2 % (11.5-14.5); White Blood Count 9.2 K/mm3 (4.5-10.0)
[2020-06-02 06:02] LABS: Anion Gap 10 mmol/L (8-16); Blood Urea Nitrogen 15 mg/dL (9-20); Calcium 8.8 mg/dL (8.4-10.2); Carbon Dioxide 22 mmol/L (22-30); Chloride 103 mmol/L (98-107); Estimated CRCL calculation 124 ml/min; Estimated Glomerular Filt Rate > 60; Glucose 116 mg/dL (75-110); Potassium 3.9 mmol/L (3.4-5.0); Sodium 135 mmol/L (137-145)
[2020-06-02] MEDS: ENOXAPARIN 40 MG/0.4 ML SYRINGE SUB-Q (07:44)
--- NOTE | 2020-06-02 09:37 | PM.IMPN ---
Progress Note: A&P Assessment and Plan (1) Exacerbation of ulcerative colitis: Code(s): K51.90 - Ulcerative colitis, unspecified, without complications Status: Acute Assessment and Plan: Evident pancolitis on CT imaging and consistent with history of UC. Patient given IV steroids in ED and GI consulted from ED; appreciate recommendations. Pain seems to be reasonable currently, but had adjustment in his pain meds yesterday. Diet to be advanced today, although patient reluctant. Plans for colonoscopy today, 06/02 per GI Continue IV solumedrol 20 mg Q8hr, mesalamine and home Humira per GI rec Continue 40 mg Lovenox for VTE ppx as Hgb is stable and patient has history of VTE associated with UC Encourage IV tylenol for pain; continue IV dilaudid to 1 mg IV Q2hr for severe pain per GI rec. Will defer pain management to GI Continue IV fluids Zofran as needed for nausea Monitor labs Will await further recommendation from GI Monitor closely (2) Thrombocytosis: Code(s): D47.3 - Essential (hemorrhagic) thrombocythemia Status: Acute Assessment and Plan: 379 this morning. 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 Patient states his pain is reasonable at the moment again today, but continues to have bouts of n/v and severe abdominal pain in the afternoons the past couple of days. He was reluctant to try his home PO meds as he thinks this exacerbated his pain and nausea. Denies any bloody BMs today, but had a small amount of blood in stool yesterday afternoon. No other complaint this morning. Denies myalgias/arthralgias, headaches, dizziness, lightheadedness, cp/palpitations, sob/cough, dysuria, hematuria, cloudy urine, calf pain/swelling. Review of Systems Review of Systems: All systems reviewed & are unremarkable except as noted in HPI and below Exam Narrative: Exam Narrative: General: Patient resting supine in bed in no acute distress. HEENT: Normocephalic, EOMI, MMM Cardiovascular: Rate and rhythm are regular. No notable murmur, rub, or gallop. Respiratory: Lungs clear to auscultation all rubio. Non-labored breathing. Abdomen: soft, NTTP. bowel sounds present Extremities: Peripheral pulses intact. No edema. NTTP b/l calves Neuro: No focal neurological deficits. Speech is clear. Objective Data Vital Signs Vital Signs: Last Vital Signs Temp 99 F 06/02/20 05:29 Pulse 99 06/02/20 05:29 Resp 16 06/02/20 05:29 BP 136/87 06/02/20 05:29 Pulse Ox 96 06/02/20 05:29 Intake/Output Intake/Output: Intake & Output 05/30/20 05/31/20 06/01/20 06/02/20 23:59 23:59 23:59 23:59 Intake Total 2100 2340 2290 1000 Output Total 6301 815 0306 Balance 700 1540 1290 1000 Meds/Results Medications: Active Medications Generic Name Dose Route Start Last Admin Trade Name Freq PRN Reason Stop Dose Admin Buspirone HCl 10 mg 05/30/20 17:00 06/02/20 07:44 Buspirone Hcl 10 Mg Tablet PO 10 mg TID DONALD Administration Calcium Carbonate 200 mg 05/31/20 21:19 06/01/20 12:21 Calcium Carbonate (Tums) 500 Mg (200 Mg Elemental) PO 200 mg Q6H PRN Administration Indigestion Enoxaparin Sodium 40 mg 05/30/20 09:00 06/02/20 07:44 Enoxaparin 40 Mg/0.4 Ml Syringe SUB-Q 40 mg DAILY DONALD Administration Escitalopram Oxalate 10 mg 05/31/20 09:00 06/02/20 07:45 Escitalopram Oxalate 10 Mg Tablet PO 10 mg DAILY DONALD Administration Hydralazine HCl 10 mg 05/31/20 13:32 05/31/20 14:01 Hydralazine Hcl 20 Mg/Ml Vial IV PUSH 10 mg Q8H PRN Administration Blood Pressure - High Hydromorphone HCl 1 mg 05/31/20 14:17 06/02/20 07:39 Hydromorphone Hcl Inj (*Crx) 1 Mg/Ml Syr I
--- NOTE | 2020-06-02 09:46 | PC.NURSE ---
Call to GI lab to verify if patient could have Dilaudid that is due at this time. Spoke with anesthesiology and was told he could go ahead and have his dose that is due now.
--- NOTE | 2020-06-02 11:32 | PC.NURSE ---
Patient to GI Lab pre-op via stretcher.
--- NOTE | 2020-06-02 11:36 | WPDANESEPPF ---
Anes - Initial Pre Proc Eval Procedure: Operation Date: 06/02/20 12:30 Proposed Procedures p Colonoscopy - Juan Wick MD Date/Time: 06/02/20 11:36 Surgeon: Grady Castellanos PA-C Pre Op Diagnosis: pancolitis, abdominal pain Patient Data Age: 39 Gender: M Height: 1.88 m Weight: 103 kg Last Vital Signs Temp 37.2 C 06/02/20 05:29 Pulse 99 06/02/20 05:29 Resp 16 06/02/20 05:29 BP 136/87 06/02/20 05:29 Pulse Ox 96 06/02/20 05:29 Allergies Allergy/AdvReac Type Severity Reaction Status Date / Time No Known Allergies Allergy Verified 05/30/20 08:54 Home Medications Medication Instructions Recorded Confirmed Type ondansetron 4 mg PO Q6H PRN #7 tablet 01/24/20 05/30/20 Rx lorazepam 1.5 mg PO BID PRN 05/16/20 05/24/20 History zolpidem 10 mg PO HS 05/16/20 05/24/20 History Humira Pen 40 mg SUBCUT [id number] 05/24/20 05/24/20 History buspirone 10 mg PO BID 05/24/20 05/25/20 History prednisone See Rx Instructions .ROUTE 05/25/20 Rx .COMPLEX #180 tablet adalimumab [Humira Pen] 40 mg SUBCUT [id number] 05/30/20 05/30/20 History buspirone 10 mg PO TID 05/30/20 05/30/20 History escitalopram oxalate 10 mg PO DAILY 05/30/20 05/30/20 History lorazepam 0.5 mg PO BID PRN 05/30/20 05/30/20 History zolpidem 10 mg PO HS 05/30/20 05/30/20 History Laboratory Tests 06/02/20 06/02/20 05:33 05:33 WBC 9.2 K/mm3 K/mm3 (4.5-10.0) RBC 5.04 M/mm3 M/mm3 (4.6-6.20) Hgb 15.3 g/dL g/dL (14.0-18.0) Hct 45.2 % % (42.0-52.0) MCV 89.7 fl fl (80-100) MCH 30.4 pg pg (26-34) MCHC 33.8 g/dl g/dl (32-36) RDW 13.2 % % (11.5-14.5) Plt Count 379 k/mm3 H k/mm3 (150-375) MPV 9.7 fl fl (7.4-10.4) Immature Gran % (Auto) 2.3 % H % (0-0.5) Neut % (Auto) 76.0 % H % (45.5-73.1) Lymph % (Auto) 10.5 % L % (18.3-44.2) [place] % (Auto) 10.6 % H % (2.6-8.5) Eos % (Auto) 0.1 % % (0-4.4) Baso % (Auto) 0.5 % % (0.2-1.2) Lymph # (Auto) 0.97 K/mm3 K/mm3 (0.9-3.2) [place] # (Auto) 1.0 K/mm3 H K/mm3 (0.1-0.6) Eos # (Auto) 0.0 K/mm3 K/mm3 (0-0.3) Baso # (Auto) 0.1 K/mm3 K/mm3 (0.0-0.1) Abs Immat Gran (auto) 0.21 K/mm3 H K/mm3 (0.00-0.031) Absolute Neuts (auto) 7.0 K/mm3 H K/mm3 (1.3-6.7) Absolute Nucleated RBC 0.0 K/mm3 K/mm3 (0.0-0.012) Nucleated RBC % 0.0 % % (0.0-0.2) Sodium 135 mmol/L L mmol/L (137-145) Potassium 3.9 mmol/L mmol/L (3.4-5.0) Chloride 103 mmol/L mmol/L (98-107) Carbon Dioxide 22 mmol/L mmol/L (22-30) Anion Gap 10 mmol/L mmol/L (8-16) BUN 15 mg/dL mg/dL (9-20) Creatinine 0.80 mg/dL mg/dL (0.7-1.3) Estim Creat Clear Calc 124 ml/min ml/min Estimated GFR > 60 (59 - ) Glucose 116 mg/dL H mg/dL (75-110) Calcium 8.8 mg/dL mg/dL (8.4-10.2) Magnesium 2.0 mg/dL mg/dL (1.6-2.3) Patient hx anesthesia problems: none Family hx anesthesia problems: none [facility] Past Medical History Medical History Abdominal pain Anxiety Bloody diarrhea Deep venous thrombosis (~02/2019) History of pancreatitis History of pulmonary embolism Inflammatory bowel disease Nausea and vomiting in adult Pulmonary embolism Pulmonary embolism (~02/2019) Ulcerative colitis Surgical History Surgical History History of knee surgery History right knee surgery/washout secondary to joint infection. Family History Family History Sibling Inflammatory bowel disease Mother Inflammatory bowel disease Sibling Ulcerative colitis Mother , Mother from an overdose at age 52. No problems noted. Father , Father was morbidly obese and from complication
[2020-06-02] MEDS: LACTATED RINGERS 1,000 ML 150 ML IV CONT (11:48)
--- NOTE | 2020-06-02 13:38 | PC.NURSE ---
Patient returned from GI Lab via stretcher.
[2020-06-02] MEDS: MESALAMINE 400 MG DELAYED RELEASE CAPSULE PO ×2 (13:47→16:56)
[2020-06-02] MEDS: busPIRone HCL 10 MG TABLET PO ×2 (13:47→16:56)
[2020-06-02] MEDS: CALCIUM CARBONATE (TUMS) 500 MG (200 MG ELEMENTAL) PO (21:52)
[2020-06-02] MEDS: ZOLPIDEM TARTRATE (*CRX) 5 MG TABLET 10 MG PO (22:47)
[2020-06-03] MEDS: HYDROmorphone HCL INJ (*CRX) 1 MG/ML SYR IV PUSH ×11 (02:18→23:34)
[2020-06-03] MEDS: SODIUM CHLORIDE 0.9% IV 1,000 ML 100 ML IV CONT ×3 (02:20→23:10)
[2020-06-03] MEDS: ONDANSETRON INJ 4 MG/2 ML VIAL IV PUSH ×5 (04:36→20:48)
[2020-06-03 05:29] VITALS: BP 155/89; PULSE 90; RESP 16; TEMP 37; O2SAT 98
[2020-06-03 05:54] LABS: Basophils Percent Auto 0.4 % (0.2-1.2); Hematocrit 42.7 % (42.0-52.0); Hemoglobin 14.4 g/dL (14.0-18.0); Immature Granulocyte Absolute 0.13 K/mm3 (0.00-0.031); Immature Granulocyte Percent A 1.3 % (0-0.5); Lymphocytes Absolute Auto 0.75 K/mm3 (0.9-3.2); Lymphocytes Percent Auto 7.7 % (18.3-44.2); Mean Corpuscular HGB Conc 33.7 g/dl (32-36); Mean Corpuscular Hemoglobin 30.1 pg (26-34); Mean Corpuscular Volume 89.3 fl (80-100); Mean Platelet Volume 9.8 fl (7.4-10.4); Monocytes Absolute Auto 1.2 K/mm3 (0.1-0.6); Monocytes Percent Auto 11.9 % (2.6-8.5); Neutrophils Absolute Auto 7.6 K/mm3 (1.3-6.7); Neutrophils Percent Auto 78.7 % (45.5-73.1); Platelet Count Result 365 k/mm3 (150-375); Red Blood Count 4.78 M/mm3 (4.6-6.20); Red Cell Distribution Width 13.3 % (11.5-14.5); White Blood Count 9.7 K/mm3 (4.5-10.0)
[2020-06-03 05:58] LABS: Anion Gap 6 mmol/L (8-16); Blood Urea Nitrogen 16 mg/dL (9-20); Calcium 8.5 mg/dL (8.4-10.2); Carbon Dioxide 25 mmol/L (22-30); Chloride 105 mmol/L (98-107); Estimated CRCL calculation 124 ml/min; Estimated Glomerular Filt Rate > 60; Glucose 138 mg/dL (75-110); Potassium 4.2 mmol/L (3.4-5.0); Sodium 136 mmol/L (137-145)
[2020-06-03] MEDS: methylPREDNISolone SOD SUCC 40 MG VIAL 20 MG IV PUSH ×3 (06:36→21:02)
[2020-06-03] MEDS: MESALAMINE 400 MG DELAYED RELEASE CAPSULE PO ×3 (08:38→17:22)
[2020-06-03] MEDS: busPIRone HCL 10 MG TABLET PO ×2 (08:38→12:59)
[2020-06-03] MEDS: ESCITALOPRAM OXALATE 10 MG TABLET PO (08:38)
[2020-06-03] MEDS: LORazepam INJ (*CRX) 2 MG/ML VIAL 0.5 MG IV PUSH ×3 (08:39→20:47)
--- NOTE | 2020-06-03 08:53 | WPDANESPN ---
Anes - Prog Note Post-Op Date/Time: 06/03/20 08:53 Cardiovascular status: normal Respiratory status: normal Airway patency: baseline Mental status: baseline Post-Op hydration status: normal Vital Signs: Last Vital Signs Temp 37.0 C 06/03/20 05:29 Pulse 90 06/03/20 05:29 Resp 16 06/03/20 05:29 BP 155/89 H 06/03/20 05:29 Pulse Ox 98 06/03/20 05:29 Pain Score (VAS): 0 I/O: Intake & Output 06/02/20 06/03/20 06/03/20 23:59 07:59 15:59 Intake Total 720 1500 Output Total 900 Balance 720 600 Laboratory Tests 06/03/20 05:25 06/03/20 05:25 06/03/20 06/03/20 05:25 05:25 WBC 9.7 RBC 4.78 Hgb 14.4 Hct 42.7 MCV 89.3 MCH 30.1 MCHC 33.7 RDW 13.3 Plt Count 365 MPV 9.8 Immature Gran % (Auto) 1.3 H Neut % (Auto) 78.7 H Lymph % (Auto) 7.7 L [place] % (Auto) 11.9 H Eos % (Auto) 0.0 Baso % (Auto) 0.4 Lymph # (Auto) 0.75 L [place] # (Auto) 1.2 H Eos # (Auto) 0.0 Baso # (Auto) 0.0 Abs Immat Gran (auto) 0.13 H Absolute Neuts (auto) 7.6 H Absolute Nucleated RBC 0.0 Nucleated RBC % 0.0 Sodium 136 L Potassium 4.2 Chloride 105 Carbon Dioxide 25 Anion Gap 6 L BUN 16 Creatinine 0.80 Estim Creat Clear Calc 124 Estimated GFR > 60 Glucose 138 H Calcium 8.5 Magnesium 2.0 Post-procedural complaints: none Patient Feedback: Patient satisfied with anesthetic care.
--- NOTE | 2020-06-03 12:24 | PC.NURSE ---
IV infiltrated that was placed by ultrasound. Call to [facility] to have new IV placed with ultrasound.
--- NOTE | 2020-06-03 13:07 | PM.IMPN ---
Progress Note: A&P Assessment and Plan (1) Exacerbation of ulcerative colitis: Code(s): K51.90 - Ulcerative colitis, unspecified, without complications Status: Acute Assessment and Plan: Evident pancolitis on CT imaging and consistent with history of UC. Patient given IV steroids in ED and GI consulted from ED; appreciate recommendations. EGD shows UC without complications Continue IV solumedrol 20 mg Q8hr, mesalamine and home Humira per GI rec Continue 40 mg Lovenox for VTE ppx as Hgb is stable and patient has history of VTE associated with UC Encourage IV tylenol for pain; continue IV dilaudid to 1 mg IV Q2hr for severe pain per GI rec. 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 Patient started eating and had terrible diarrhea and blood stools last night, abdo pain is ok. Review of Systems Review of Systems: All systems reviewed & are unremarkable except as noted in HPI and below Exam Narrative: Exam Narrative: General: Patient resting HEENT: Normocephalic Cardiovascular: Rate and rhythm are regular. Respiratory: Lungs clear to auscultation Abdomen: soft, NT, bowel sounds present Extremities: Peripheral pulses intact. No edema. NTTP b/l calves Neuro: No focal neurological deficits. Speech is clear. Objective Data Vital Signs Vital Signs: Vital Signs - 24 hr 06/02/20 13:14 06/02/20 13:24 06/02/20 13:41 Temperature 36.1 C L Pulse Rate 72 74 72 Respiratory Rate 20 20 16 Blood Pressure 122/79 118/67 142/88 H Pulse Oximetry 100 100 100 06/02/20 13:55 06/02/20 14:23 06/02/20 15:29 Temperature 36.1 C L 36.4 C 36.2 C L Pulse Rate 95 85 101 H Respiratory Rate 16 16 18 Blood Pressure 135/87 143/82 H 147/79 H Pulse Oximetry 97 96 95 06/02/20 17:44 06/02/20 19:59 06/03/20 05:29 Temperature 36.5 C 36.4 C 37.0 C Pulse Rate 75 98 90 Respiratory Rate 16 16 16 Blood Pressure 125/73 167/97 H 155/89 H Pulse Oximetry 96 96 98 Intake/Output Intake/Output: Intake & Output 05/31/20 06/01/20 06/02/20 06/03/20 23:59 23:59 23:59 23:59 Intake Total 2340 2290 2770 2740 Output Total 800 1000 900 Balance 1540 1290 2770 1840 Meds/Results Medications: Active Medications Generic Name Dose Route Start Last Admin Trade Name Freq PRN Reason Stop Dose Admin Buspirone HCl 10 mg 05/30/20 17:00 06/03/20 12:59 Buspirone Hcl 10 Mg Tablet PO 10 mg TID DONALD Administration Calcium Carbonate 200 mg 05/31/20 21:19 06/02/20 21:52 Calcium Carbonate (Tums) 500 Mg (200 Mg Elemental) PO 200 mg Q6H PRN Administration Indigestion Enoxaparin Sodium 40 mg 05/30/20 09:00 06/03/20 08:38 Enoxaparin 40 Mg/0.4 Ml Syringe SUB-Q Not Given DAILY [facility] Escitalopram Oxalate 10 mg 05/31/20 09:00 06/03/20 08:38 Escitalopram Oxalate 10 Mg Tablet PO 10 mg DAILY DONALD Administration Hydralazine HCl 10 mg 05/31/20 13:32 05/31/20 14:01 Hydralazine Hcl 20 Mg/Ml Vial IV PUSH 10 mg Q8H PRN Administration Blood Pressure - High Hydrocortisone Acetate 25 mg 06/03/20 21:00 Hydrocortisone Acetate 25 Mg Suppository RECTAL Q12HR DONALD Hydromorphone HCl 1 mg 05/31/20 14:17 06/03/20 12:47 Hydromorphone Hcl Inj (*Crx) 1 Mg/Ml Syr IV PUSH 1 mg Q2H PRN Administration Pain Rated 6 or Greater Sodium Chloride 1,000 mls @ 100 mls/hr 05/29/20 23:40 06/03/20 13:05 Normal Saline Iv IV CONT 100 mls/hr .Q10H DONALD Infusion Lorazepam
[2020-06-03 14:49] VITALS: BP 141/89; PULSE 76; RESP 18; TEMP 36.8; O2SAT 97
--- NOTE | 2020-06-03 17:34 | WPDGIPROGNO ---
Progress Note: A&P Assessment and Plan (1) Exacerbation of ulcerative colitis: Code(s): K51.90 - Ulcerative colitis, unspecified, without complications Status: Acute Assessment and Plan: colonoscopy yesterday with mod-severe pancolitis despite humira. I am planning to increase frequency of humira to every week instead of 2 weeks, also ordered humira antibodies and trough level. he has been dealing with a flare for several weeks and also has a sister with severe UC that ended up with colectomy (also mother had ulcerative colitis), he would like to get to establish a relation with a surgeon in case he fails medical treatment to biologics and ultimately will need colectomy. Will put a consult. in the mean time continue with iv steroids, pain management and mesalamine, will see if he can go home tomorrow. another option if humira does not work then is either entyvio or stelara (he had PE in the past and can not get xeljanz) (2) Bloody diarrhea: Code(s): R19.7 - Diarrhea, unspecified Status: Acute Assessment and Plan: due to pancolitis, medical treatment (3) Nausea and vomiting in adult: Code(s): R11.2 - Nausea with vomiting, unspecified Status: Acute Assessment and Plan: antiemetics prn (4) Abdominal pain: Code(s): R10.9 - Unspecified abdominal pain Status: Acute Assessment and Plan: pain meds as needed (5) History of pulmonary embolism: Code(s): Z86.711 - Personal history of pulmonary embolism Status: Acute Assessment and Plan: on dvt prophylaxis Subjective Date/time seen: 06/03/20 17:34 Interval history: still with abdominal discomfort and diarrhea with blood after had lunch. Colonoscopy yesterday with mod-severe pancolitis despite use of humira. Review of Systems Review of Systems: All systems reviewed & are unremarkable except as noted in HPI and below Exam Const: General: comfortable and no acute distress HENMT: General nose exam: Normal nares present Eyes: General: appearance normal, both eyes and all related structures Neck: Neck: no JVD Resp: Auscultation: clear to auscultation bilaterally Cardio: Rate: regular rate Rhythm: regular rhythm GI: Inspection: non-distended GI Palp: Yes Soft to palpation and Yes Tenderness to palpation present (GI) (mild ttp, no rebound or guarding) Percussion: No Fluid wave present Auscultation: normal bowel sounds Skin: General skin exam: normal color Neuro: General: gait normal Speech: normal speech Extrem: General: normal to inspection Psych: Affect: Anxious affect present Objective Data Vital Signs Vital Signs: Vital Signs - 24 hr 06/02/20 17:44 06/02/20 19:59 06/03/20 05:29 Temperature 97.7 F 97.6 F 98.6 F Pulse Rate 75 98 90 Respiratory Rate 16 16 16 Blood Pressure 125/73 167/97 H 155/89 H Pulse Oximetry 96 96 98 06/03/20 14:49 Temperature 98.2 F Pulse Rate 76 Respiratory Rate 18 Blood Pressure 141/89 H Pulse Oximetry 97 Intake/Output Intake/Output: Intake & Output 05/31/20 06/01/20 06/02/20 06/03/20 23:59 23:59 23:59 23:59 Intake Total 2340 2290 2770 2740 Output Total 800 1000 1200 Balance 1540 1290 2770 1540 Meds/Results Medications: Active Medications Generic Name Dose Route Start Last Admin Trade Name Freq PRN Reason Stop Dose Admin Buspirone HCl 10 mg 05/30/20 17:00 06/03/20 17:21 Buspirone Hcl 10 Mg Tablet PO Not Given TID DONALD Calcium Carbonate 200 mg 05/31/20 21:19 06/02/20 21:52 Calcium Carbonate (Tums) 500 Mg (200 Mg Elemental) PO 200 mg Q6H PRN Administration Indigestion Enoxaparin Sodium 40 mg 05/30/20 09:00 06/03/20 08:38 Enoxaparin 40 Mg/0.4 Ml Syringe SUB-Q Not Given DAILY DONALD Escitalopram Oxalate 10 mg 05/31/20 09:00 06/03/20 08:38 Escitalopram Oxalate 10 Mg Tablet PO 10 mg DAILY DONALD Administration Hydralazine HCl 10 mg 05/31/20 13:32 05/31/20 14:01 Hydrala
[2020-06-03] MEDS: ZOLPIDEM TARTRATE (*CRX) 5 MG TABLET 10 MG PO (20:42)
[2020-06-03 21:41] VITALS: BP 157/101; PULSE 92
[2020-06-03] MEDS: hydrALAZINE HCL 20 MG/ML VIAL 10 MG IV PUSH (21:44)
[2020-06-03 23:42] VITALS: BP 155/95
[2020-06-04] MEDS: ONDANSETRON INJ 4 MG/2 ML VIAL IV PUSH ×5 (01:34→21:01)
[2020-06-04] MEDS: HYDROmorphone HCL INJ (*CRX) 1 MG/ML SYR IV PUSH ×10 (01:36→23:01)
[2020-06-04] MEDS: LORazepam INJ (*CRX) 2 MG/ML VIAL 0.5 MG IV PUSH ×3 (04:09→18:58)
[2020-06-04] MEDS: methylPREDNISolone SOD SUCC 40 MG VIAL 20 MG IV PUSH ×3 (05:27→21:55)
[2020-06-04 05:41] LABS: Hematocrit 41.4 % (42.0-52.0); Hemoglobin 13.8 g/dL (14.0-18.0); Mean Corpuscular HGB Conc 33.3 g/dl (32-36); Mean Corpuscular Hemoglobin 29.7 pg (26-34); Mean Corpuscular Volume 89.2 fl (80-100); Mean Platelet Volume 9.8 fl (7.4-10.4); Platelet Count Result 389 k/mm3 (150-375); Red Blood Count 4.64 M/mm3 (4.6-6.20); Red Cell Distribution Width 13.2 % (11.5-14.5)
[2020-06-04 05:46] VITALS: BP 144/84; PULSE 81; RESP 12; TEMP 36.6; O2SAT 95
[2020-06-04 05:54] LABS: Anion Gap 7 mmol/L (8-16); Blood Urea Nitrogen 13 mg/dL (9-20); Calcium 8.3 mg/dL (8.4-10.2); Carbon Dioxide 24 mmol/L (22-30); Chloride 104 mmol/L (98-107); Estimated CRCL calculation 141 ml/min; Estimated Glomerular Filt Rate > 60; Glucose 140 mg/dL (75-110); Sodium 135 mmol/L (137-145)
[2020-06-04 07:47] VITALS: PULSE 81; RESP 12; O2SAT 95
[2020-06-04] MEDS: SODIUM CHLORIDE 0.9% IV 1,000 ML 100 ML IV CONT (09:45)
[2020-06-04] MEDS: ESCITALOPRAM OXALATE 10 MG TABLET PO (09:45)
[2020-06-04] MEDS: ENOXAPARIN 40 MG/0.4 ML SYRINGE SUB-Q (09:45)
[2020-06-04] MEDS: MESALAMINE 400 MG DELAYED RELEASE CAPSULE PO (09:45)
[2020-06-04] MEDS: busPIRone HCL 10 MG TABLET PO (09:45)
--- NOTE | 2020-06-04 11:18 | PM.CNGS ---
Assessment and Plan Assessment and plan (1) Exacerbation of ulcerative colitis: Code(s): K51.90 - Ulcerative colitis, unspecified, without complications Status: Acute Assessment and Plan: pt will followup c GI for dosage adjustment of Humira, exam benign at this point, ok to followup as outpt to discuss surgical intervention in the futrure History of Present Illness Consult details Consult date: 06/04/20 Reason for consult: abdominal pain Requesting physician: Juan Wick MD Narrative: Pt is a 39 y/o M dx'd c UC in 2009. Pt reports he has been well controlled on Humira over last 1.5 yrs but recently has had a severe flare. Pt reports severe abd pain assoc c N/V, diarrhea, bloody BMs over last few wks. Pt noted to have pancolitis and trial of po abx did not help. Pt has now been admitted and symptoms are much better controlled after steroids, etc. Pt reports sister c UC s/p total colectomy. Pt would like to establish c surgeon for discussion of surgical options in the future. Review of Systems Constitutional: Constitutional: Reports anorexia, Reports chills, Reports difficulty sleeping, Reports fatigue, Reports fever(s), Denies headache(s), Denies increased appetite, Reports lethargy, Reports malaise, Reports poor appetite, Reports weakness, Denies weight gain and Denies weight loss Eyes: Eyes: Reports no additional eye complaints ENT: Reports system reviewed and no additional complaints, except as documented Cardiovascular: Cardiovascular: Reports no additional cardiovascular complaints Respiratory: Respiratory: Reports no additional respiratory complaints Gastrointestinal: Gastrointestinal: Reports abdominal pain, Reports bloating, Reports change in bowel habits, Reports change in stool character, Reports GI cramping, Reports diarrhea, Reports loose stools, Reports nausea and Reports vomiting Genitourinary: Genitourinary: Reports no additional male genitourinary complaints Musculoskeletal: Musculoskeletal: Reports no additional musculoskeletal complaints Integumentary/Breasts: Skin/Breast: Reports system reviewed and no additional complaints, except as docu Neurologic: Reports system reviewed and no additional complaints, except as documented Psychiatric: Psychiatric: Reports no additional psychiatric complaints Endocrine: Endocrine: Reports no additional endocrine complaints Hematologic/Lymphatic: Hematologic/Lymphatic: Reports no additional hematologic/lymphatic complaints Allergic/Immunologic: Allergic/Immunologic: Reports no additional allergic/immunologic complaints PMFSH Past Medical History Medical History Abdominal pain Anxiety Bloody diarrhea Deep venous thrombosis (~02/2019) History of pancreatitis History of pulmonary embolism Inflammatory bowel disease Nausea and vomiting in adult Pulmonary embolism Pulmonary embolism (~02/2019) Ulcerative colitis Surgical History Surgical History History of knee surgery History right knee surgery/washout secondary to joint infection. Family History Family History Sibling Inflammatory bowel disease Mother Inflammatory bowel disease Sibling Ulcerative colitis Mother , Mother from an overdose at age 52. No problems noted. Father , Father was morbidly obese and from complications of an infection. No problems noted. Social History Social History Social History: Lives in [place] with his fiancee and children. He has not worked for several years due to his ulcerative colitis. He chews tobacco. Will drink heavily on the weekends. Occasional marijuana use. His dustin Kaplan is his surrogate decision maker and he wishes to be a full code. Smoking status: Never smo
--- NOTE | 2020-06-04 11:19 | PM.IMPN ---
Progress Note: A&P Assessment and Plan (1) Exacerbation of ulcerative colitis: Code(s): K51.90 - Ulcerative colitis, unspecified, without complications Status: Acute Assessment and Plan: Evident pancolitis on CT imaging and consistent with history of UC. Patient given IV steroids in ED and GI consulted from ED; appreciate recommendations. EGD shows UC without complications Continue IV solumedrol 20 mg Q8hr, mesalamine and home Humira per GI rec Pt to see surgery team today. GI wants to switch his immunosuppressive agents on discharge Pt would like to go home tomorrow I will stop his fluids today encourage regular low fiber diet (2) Thrombocytosis: Code(s): D47.3 - Essential (hemorrhagic) thrombocythemia Status: Acute Assessment and Plan: PLTs 389 Subjective Date/time seen: 06/04/20 11:19 Interval history: Patient is a 39 yo M with history of IBD (UC), previous VTE (DVT/PE 02/2019), and anxiety who is seen in follow up for pancolitis/UC flare. Patient started eating and had terrible diarrhea and blood stools. Pt is going to meet with surgery team today to discuss surgery options. Pt denies abdominal pain, still having blood in his stools, hopeful DC chris. Review of Systems Review of Systems: All systems reviewed & are unremarkable except as noted in HPI and below Exam Narrative: Exam Narrative: General: Patient resting HEENT: Normocephalic Cardiovascular: Rate and rhythm are regular. Respiratory: Lungs clear to auscultation Abdomen: soft, NT, bowel sounds present Extremities: Peripheral pulses intact. No edema. NTTP b/l calves Neuro: No focal neurological deficits. Speech is clear. Objective Data Vital Signs Vital Signs: Vital Signs - 24 hr 06/03/20 14:49 06/03/20 21:41 06/03/20 23:42 Temperature 36.8 C Pulse Rate 76 92 Respiratory Rate 18 Blood Pressure 141/89 H 157/101 H 155/95 H Pulse Oximetry 97 06/04/20 05:46 06/04/20 07:47 Temperature 36.6 C Pulse Rate 81 81 Respiratory Rate 12 12 Blood Pressure 144/84 H Pulse Oximetry 95 95 Intake/Output Intake/Output: Intake & Output 06/01/20 06/02/20 06/03/20 06/04/20 23:59 23:59 23:59 23:59 Intake Total 2290 2770 3740 1860 Output Total 1000 1200 Balance 1290 2770 2540 1860 Meds/Results Medications: Active Medications Generic Name Dose Route Start Last Admin Trade Name Freq PRN Reason Stop Dose Admin Buspirone HCl 10 mg 05/30/20 17:00 06/04/20 09:45 Buspirone Hcl 10 Mg Tablet PO 10 mg TID DONALD Administration Calcium Carbonate 200 mg 05/31/20 21:19 06/02/20 21:52 Calcium Carbonate (Tums) 500 Mg (200 Mg Elemental) PO 200 mg Q6H PRN Administration Indigestion Enoxaparin Sodium 40 mg 05/30/20 09:00 06/04/20 09:45 Enoxaparin 40 Mg/0.4 Ml Syringe SUB-Q 40 mg DAILY DONALD Administration Escitalopram Oxalate 10 mg 05/31/20 09:00 06/04/20 09:45 Escitalopram Oxalate 10 Mg Tablet PO 10 mg DAILY DONALD Administration Hydralazine HCl 10 mg 05/31/20 13:32 06/03/20 21:44 Hydralazine Hcl 20 Mg/Ml Vial IV PUSH 10 mg Q8H PRN Administration Blood Pressure - High Hydromorphone HCl 1 mg 05/31/20 14:17 06/04/20 07:35 Hydromorphone Hcl Inj (*Crx) 1 Mg/Ml Syr IV PUSH 1 mg Q2H PRN Administration Pain Rated 6 or Greater Sodium Chloride 1,000 mls @ 100 mls/hr 05/29/20 23:40 06/04/20 09:45 Normal Saline Iv IV CONT 100 mls/hr .Q10H DONALD Administration Lorazepam 0.5 mg 05/31/20 13:59 06/04/20 04:09 Lorazepam Inj (*Crx) 2 Mg/Ml Vial IV PUSH 0.5 mg Q6H PRN Administration Anxiety Mesalamine 400 mg 05/30/20 18:50 06/04/20 09:45 Mesalamine 400 Mg Delayed Release Capsule PO 400 mg TID DONALD Administration Methylprednisolone Sodium Succinate 20 mg 05/30/20 08:00 06/04/20 05:27 Methylprednisolone Sod Succ 40 Mg Vial IV PUSH
[2020-06-04 12:47] VITALS: BP 157/115
[2020-06-04] MEDS: hydrALAZINE HCL 20 MG/ML VIAL 10 MG IV PUSH (12:49)
[2020-06-04 14:00] VITALS: BP 138/97; PULSE 96; RESP 18; TEMP 36.6; O2SAT 98
[2020-06-04] MEDS: CALCIUM CARBONATE (TUMS) 500 MG (200 MG ELEMENTAL) PO (15:00)
--- NOTE | 2020-06-04 16:26 | WPDGIPROGNO ---
Progress Note: A&P Assessment and Plan (1) Exacerbation of ulcerative colitis: Code(s): K51.90 - Ulcerative colitis, unspecified, without complications Status: Acute Assessment and Plan: colonoscopy showed mod-severe pancolitis despite humira. My plan for him as ouptatient is to increase frequency of humira to every week instead of 2 weeks, humira antibodies and trough level pending (sent out test). he also will follow-up with surgery as outpatient in case humira or even any other biologic down the road fails, then consideration of colectomy (already met Dr Serna) in the mean time continue with iv steroids, pain management and mesalamine. Ok tomorrow to switch to prednisone (slow taper, he can start out with 40mg daily to decrease 5mg each week- 35,30, 25, etc and follow-up in office in 3-4 weeks) and go home if possible, may need also pain meds prn if humira does not work then could try either entyvio or stelara (he had PE in the past and can not get xeljanz) (2) Bloody diarrhea: Code(s): R19.7 - Diarrhea, unspecified Status: Acute Assessment and Plan: due to pancolitis, medical treatment (3) Nausea and vomiting in adult: Code(s): R11.2 - Nausea with vomiting, unspecified Status: Acute Assessment and Plan: antiemetics prn (4) Abdominal pain: Code(s): R10.9 - Unspecified abdominal pain Status: Acute Assessment and Plan: pain meds as needed (5) History of pulmonary embolism: Code(s): Z86.711 - Personal history of pulmonary embolism Status: Acute Assessment and Plan: on dvt prophylaxis Subjective Date/time seen: 06/04/20 16:26 Interval history: he is having pain but overall better, hoping to go home tomorrow. Review of Systems Review of Systems: All systems reviewed & are unremarkable except as noted in HPI and below Exam Const: General: cooperative, comfortable and no acute distress Nutritional Appearance: overweight Orientation/consciousness: patient oriented x3 Limitations: no limitations HENMT: Head: normal to inspection, normocephalic and atraumatic Ears: hearing grossly normal bilaterally General nose exam: Normal external nose present Mouth: Yes Normal oral and palatal mucosa present Eyes: General: appearance normal, both eyes and all related structures Pupils: Equal, round and reactive pupils present EOM: EOMs intact bilaterally Neck: Neck: normal visual inspection, full ROM and no lymphadenopathy Chest: Chest palpation & inspection: normal inspection of the chest Resp: Effort & Inspection: normal respiratory effort Auscultation: clear to auscultation bilaterally Cardio: Jugular venous distension: no JVD Rate: regular rate GI: Inspection: normal to inspection, distended and no incisions GI Palp: Yes Soft to palpation, Yes Tenderness to palpation present (GI), No Guarding due to palpation present (GI) and No Rigid due to palpation Auscultation: normal bowel sounds Skin: General skin exam: normal color and no rashes or lesions noted Neuro: General: patient oriented x3 and CN's II-XI intact bilaterally Extrem: General: normal to inspection and full ROM Objective Data Vital Signs Vital Signs: Vital Signs - 24 hr 06/03/20 21:41 06/03/20 23:42 06/04/20 05:46 Temperature 97.9 F Pulse Rate 92 81 Respiratory Rate 12 Blood Pressure 157/101 H 155/95 H 144/84 H Pulse Oximetry 95 06/04/20 07:47 06/04/20 12:47 06/04/20 14:00 Temperature 97.8 F Pulse Rate 81 96 Respiratory Rate 12 18 Blood Pressure 157/115 H 138/97 H Pulse Oximetry 95 98 Intake/Output Intake/Output: Intake & Output 06/01/20 06/02/20 06/03/20 06/04/20 23:59 23:59 23:59 23:59 Intake Total 2290 2770 3740 2187 Output Total 1000 1200 Balance 1290 2770 2540 2187 Meds/Results Medications: Active Medications Generic Name Dose Route Start Last Admin Trade Name Freq PRN Reason Stop Dose Admin Buspirone HCl
[2020-06-04 20:16] VITALS: BP 141/99; PULSE 94; RESP 18; TEMP 36.6; O2SAT 97
[2020-06-04] MEDS: ZOLPIDEM TARTRATE (*CRX) 5 MG TABLET 10 MG PO (21:52)
[2020-06-05] MEDS: ONDANSETRON INJ 4 MG/2 ML VIAL IV PUSH ×2 (01:48→05:51)
[2020-06-05] MEDS: HYDROmorphone HCL INJ (*CRX) 1 MG/ML SYR IV PUSH ×4 (01:48→08:10)
[2020-06-05] MEDS: LORazepam INJ (*CRX) 2 MG/ML VIAL 0.5 MG IV PUSH (03:49)
[2020-06-05 04:50] VITALS: BP 158/94; PULSE 74; RESP 18; TEMP 36.3; O2SAT 99
[2020-06-05] MEDS: CALCIUM CARBONATE (TUMS) 500 MG (200 MG ELEMENTAL) PO (05:00)
[2020-06-05] MEDS: hydrALAZINE HCL 20 MG/ML VIAL 10 MG IV PUSH (05:00)
[2020-06-05] MEDS: methylPREDNISolone SOD SUCC 40 MG VIAL 20 MG IV PUSH (05:51)
[2020-06-05 06:33] LABS: Hematocrit 43.3 % (42.0-52.0); Hemoglobin 14.6 g/dL (14.0-18.0); Mean Corpuscular HGB Conc 33.7 g/dl (32-36); Mean Corpuscular Hemoglobin 29.7 pg (26-34); Mean Corpuscular Volume 88.2 fl (80-100); Mean Platelet Volume 9.9 fl (7.4-10.4); Platelet Count Result 415 k/mm3 (150-375); Red Blood Count 4.91 M/mm3 (4.6-6.20); Red Cell Distribution Width 13.1 % (11.5-14.5); White Blood Count 6.3 K/mm3 (4.5-10.0)
--- NOTE | 2020-06-05 10:12 | PM.DS ---
DS: Admitting Diagnosis Admitting Diagnosis Admitting Diagnosis: 1. Exacerbation of ulcerative colitis 2. Anxiety DS: Discharge Diagnosis Discharge Diagnosis (1) Exacerbation of ulcerative colitis: Code(s): K51.90 - Ulcerative colitis, unspecified, without complications Status: Acute Assessment and Plan: Evident pancolitis on CT imaging and consistent with history of UC. Patient given IV steroids in ED and GI consulted from ED; appreciate recommendations. EGD shows UC without complications Continue IV solumedrol 20 mg Q8hr, mesalamine and home Humira per GI rec Pt to see surgery team today. GI wants to switch his immunosuppressive agents on discharge Pt would like to go home tomorrow I will stop his fluids today encourage regular low fiber diet (2) Thrombocytosis: Code(s): D47.3 - Essential (hemorrhagic) thrombocythemia Status: Acute Assessment and Plan: PLTs 389 DS: Summary Hospital Course Reason for hospitalization: 1. Exacerbation of ulcerative colitis 2. Anxiety Hospital Course: Chief Complaint: abdominal pain Narrative: This is a 39 year old male with known history of Inflammatory Bowel Disease, Ulcerative colitis diagnosed 10 years ago and just discharged from our Hospitalist service this past weekend after being treated for a flare and now returned with worsening diffuse abdominal pain. Associated symptoms include nausea, vomiting, and bloody stools. He reports having 7-8 bloody stools today. He denies any significant fevers, coughing, chest pain, shortness of breath, LE swelling or pain. He has only been drinking fluids since he was discharged home. CT abd/pelvis demonstrated persistent vincent colitis. ER provider has consulted Gastroenterology. We have been asked to admit the patient to the hospital for his severe abdominal pain and ongoing UC flare. He was treated in the ER with IV dilaudid, IV fluids and IV solumedrol. No other complaints. Patient was admitted in the hospital. Patient was given pain medication IV fluids and steroids. Surgical and GI services are consulted. Today patient is feeling better patient is discharged home in stable condition on steroids and joshua.. Follow-up scheduled with GI service and primary care outpatient next week. Condition stable diet as tolerated activity as tolerated. Time spent discussing smoking cessation with patient: 3 to 10 minutes Status at Discharge Cognitive/behavioral status at discharge: Stable Functional status at discharge: independent ambulation Overall status at discharge: patient is back to baseline Time Spent with Patient Time attestation: Total time spent providing and/or coordinating discharge services: Time spent: Less than 30 minutes Specific discharge activities: As tolerated Exam Narrative: Exam Narrative: General: Patient resting HEENT: Normocephalic Cardiovascular: Rate and rhythm are regular. Respiratory: Lungs clear to auscultation Abdomen: soft, NT, bowel sounds present Extremities: Peripheral pulses intact. No edema. NTTP b/l calves Neuro: No focal neurological deficits. Speech is clear. Const: General: cooperative, alert, awake and ill appearing Nutritional Appearance: overweight Orientation/consciousness: patient oriented x3 HENMT: Head: normal to inspection General nose exam: Normal external nose present Face and sinus: normal facial exam Mouth: Yes Normal oral and palatal mucosa present and Yes oropharynx normal Eyes: Pupils: Equal, round and reactive pupils present EOM: EOMs intact bilaterally Neck: Neck: supple and no JVD Thyroid: thyroid normal Lymphatic: lymphadenopathy not noted Resp: Effort & Inspection: normal respiratory effort Auscultation: clear to auscultation bilaterally Cardio: Rate: regular rate Rhythm: regular rhythm Heart sounds: no murmurs GI: Inspection: normal to inspection Ausc
--- NOTE | 2020-06-05 10:19 | PCDIET ---
Spoke with patient this morning. Tolerated low fiber diet today. Discussed low fiber diet. See nutritional teaching intervention. No further nutritional needs.
--- NOTE | 2020-06-05 11:14 | PC.NURSE ---
Patient education given. IV removed. No further questions. Patient is ready for discharge. He decided to decline the flu shot upon discharge.
== END 2020-06-05 11:29 | disposition home or self-care (01) | DRG 245 ==
LOC: ANHED 23:41 → ANH3MED 05-30 00:30
PROVIDERS: Internal Medicine Gastroenterology; Physician Assistant; Admitting Provider Family Medicine; Emergency Provider Emergency Medicine; PCP Family Medicine; Visit Provider Family Medicine
PROC: 0DJD8ZZ Inspection of Lower Intestinal Tract, Via Natural or Artificial Opening Endoscopic (ICD-10-PCS; CPT 45378; principal; 2020-06-02 12:30)
DX: K51.00 Ulcerative (chronic) pancolitis without complications (principal); D47.3 Essential (hemorrhagic) thrombocythemia; F41.9 Anxiety disorder, unspecified; F17.220 Nicotine dependence, chewing tobacco, uncomplicated; Z79.899 Other long term (current) drug therapy; Z86.711 Personal history of pulmonary embolism
CPT/HCPCS: 36415; 74018; 74177; 80048; 80053; 80145; 81001; 83520; 83605; 83735; 85025; 85027; 85652; 86140; 88305; 96361; 96372; 96374; 96375; 96376; 99285; A9270; G0378; G0379; J0131; J0360; J0500; J1170; J1650; J1885; J2060; J2405; J2704; J2920; J2930; J7030; J7120; Q9967

== ENCOUNTER 2020-06-05 14:16 | Emergency (ER) | payer OTHER, SELFPAY ==
[2020-06-05 14:20] VITALS: BP 160/118; PULSE 103; RESP 28; TEMP 35.8; O2SAT 100
[2020-06-05 14:36] LABS: Hemoglobin 16.2 g/dL (14.0-18.0); Mean Corpuscular HGB Conc 34.5 g/dl (32-36); Mean Corpuscular Hemoglobin 29.8 pg (26-34); Mean Corpuscular Volume 86.4 fl (80-100); Mean Platelet Volume 9.5 fl (7.4-10.4); Platelet Count Result 543 k/mm3 (150-375); Red Blood Count 5.44 M/mm3 (4.6-6.20); Red Cell Distribution Width 13.2 % (11.5-14.5); White Blood Count 11.1 K/mm3 (4.5-10.0)
[2020-06-05 14:46] LABS: Alanine Aminotransferase 32 U/L (4-50); Albumin Level 3.7 g/dL (3.5-5.1); Alkaline Phosphatase 56 U/L (38-126); Anion Gap 11 mmol/L (8-16); Aspartate Amino Transferase 21 U/L (17-59); Bilirubin,Total 0.3 mg/dL (0.2-1.3); Blood Urea Nitrogen 22 mg/dL (9-20); Calcium 9.6 mg/dL (8.4-10.2); Carbon Dioxide 25 mmol/L (22-30); Chloride 100 mmol/L (98-107); Estimated CRCL calculation 101 ml/min; Estimated Glomerular Filt Rate > 60; Glucose 117 mg/dL (75-110); Lipase 14 U/L (23-300); Potassium 4.1 mmol/L (3.4-5.0); Sodium 136 mmol/L (137-145)
[2020-06-05 14:47] LABS: Band Neutrophils Percent 4 % (0-6); Lymphocytes Absolute Manual 2.33 K/mm3 (1.1-4.5); Monocytes Absolute Manual 3.55 K/mm3 (0.1-0.90); Monocytes Percent Manual 32 % (3-9); Neutrophils Absolute Manual 5.21 K/mm3 (1.3-6.7); Neutrophils Percent Manual 43 % (46-73); Total Cells Counted 100
[2020-06-05 14:48] LABS: Atypical Lymphocytes Present; Platelet Estimate Increased (Adequate)
== END 2020-06-05 15:00 | disposition left against medical advice (07) ==
LOC: ANHED 15:07
PROVIDERS: Emergency Provider Emergency Medicine; PCP Family Medicine
DX: R10.9 Unspecified abdominal pain (principal)
CPT/HCPCS: 36415; 80053; 83690; 85025; 99199

== ENCOUNTER 2020-06-05 15:06 | Inpatient (IN) | payer OTHER, SELFPAY ==
--- NOTE | ~2020-06-05 | XR_ITS ---
EXAMINATION: XR abdomen obstructive series DATE: 06/05/2020 16:33 INDICATION: Nausea, vomiting and abdominal pain TECHNIQUE: Supine and upright views of the abdomen. FINDINGS: 05/30/2020 The visualized lung parenchyma is normal.. There is a bowel gas pattern. Gas and stool are seen throu ghout the colon to the level of the rectum. There is no free air. IMPRESSION: 1. No acute abdominal abnormality. Reviewed, dictated and finalized at location A. ETIC ASSISTANT
[2020-06-05 15:08] VITALS: BP 156/113; PULSE 125; RESP 22; TEMP 36.4; O2SAT 100
--- NOTE | 2020-06-05 16:30 | ED.ABDPAIN ---
HPI - Abdominal Pain General Chief Complaint: Abdominal Pain Stated Complaint: ulcerative colitis Time Seen by Provider: 06/05/20 16:05 Source: patient Mode of arrival: ambulatory Limitations: no limitations History of Present Illness HPI narrative: This is a 39 year old male that presents to the ER after just being discharged for a UC flare. Reports he was discharged around noon. Reports he came back due to ongoing pain. Reports he was trying to get home for Gilberto, but had too much pain which prompted him to return. Reports he was unable to get his pain medication from the pharmacy today. Reports nausea and vomiting. Reports ongoing loose stools with blood. Denies fever. Related Data Allergies Allergy/AdvReac Type Severity Reaction Status Date / Time No Known Allergies Allergy Verified 06/05/20 15:35 Review of Systems Review of Systems: Narrative: CONSTITUTIONAL: Denies fever GASTROINTESTINAL: Reports abdominal pain, nausea, vomiting, and diarrhea. All systems reviewed & are unremarkable except as noted in HPI and below PMFSH Past Medical History Medical History Abdominal pain Anxiety Bloody diarrhea Deep venous thrombosis (~02/2019) History of pancreatitis History of pulmonary embolism Inflammatory bowel disease Nausea and vomiting in adult Pulmonary embolism Pulmonary embolism (~02/2019) Ulcerative colitis Surgical History Surgical History History of knee surgery History right knee surgery/washout secondary to joint infection. Family History Family History Sibling Inflammatory bowel disease Mother Inflammatory bowel disease Sibling Ulcerative colitis Mother , Mother from an overdose at age 52. No problems noted. Father , Father was morbidly obese and from complications of an infection. No problems noted. Social History Social History Social History: Lives in [place] with his fiancee and children. He has not worked for several years due to his ulcerative colitis. He chews tobacco. Will drink heavily on the weekends. Occasional marijuana use. His dustin Kaplan is his surrogate decision maker and he wishes to be a full code. Smoking status: Never smoker Second hand tobacco smoke exposure: No Alcohol intake: current Drinks per week: 5 Substance use: current Substance use type: marijuana Other substance usage details: Occasionally smokes marijuana/drinks alcohol Last use: 05/17/2020 Gender identity (if verbalized by the patient): Male Spiritual care concerns: No Exam Narrative: Exam Narrative: GENERAL: Well-appearing, well-nourished, and in no acute distress. HEAD: Normocephalic, atraumatic. EYES: EOMI. CHEST: Clear to auscultation. No respiratory distress. No wheezes rales or rhonchi HEART: Regular rate and rhythm. No murmur heard. Normal peripheral pulses. ABDOMEN: Soft, nondistended, normal active bowel sounds. Tender to palpation throughout the abdomen, without guarding EXTREMITIES: Normal range of motion. No edema. SKIN: Warm, dry, no rash. NEURO: No focal deficits. Alert and oriented x3. PSYCH: Normal mood and affect Course Consultations Consultation #1: Spoke with Dr. Tesfaye about patient and work-up. Patient will be started on clear liquid diet and Decadron 4 mg every 12 hours. He will consult. Date: 06/05/20 Time: 18:05 Consultation #2: Spoke with hospitalist about patient and work-up who accepts admission Date: 06/05/20 Time: 18:05 Vital Signs Vital signs: Vital Signs Temperature 97.5 F L 06/05/20 15:08 Pulse Rate 125 H 06/05/20 15:08 Respiratory Rate 22 H 06/05/20 15:08 Blood Pressure 156/113 H 06/05/20 15:08 Pulse Oximetry 100 06/05/20 15:08 Temperature 97.5 F L 05/14
[2020-06-05] MEDS: MORPHINE SULFATE (*CRX) 4 MG/ML INJ IV PUSH (16:44)
[2020-06-05] MEDS: ONDANSETRON INJ 4 MG/2 ML VIAL IV PUSH ×2 (16:44→21:40)
[2020-06-05] MEDS: SODIUM CHLORIDE 0.9% IV 1,000 ML 999 ML IV CONT ×2 (16:45→17:41)
[2020-06-05] MEDS: HYDROmorphone HCL INJ (*CRX) 1 MG/ML SYR 0.5 MG IV PUSH ×3 (17:33→23:38)
[2020-06-05] MEDS: PROCHLORPERAZINE EDISYLATE 10 MG/2 ML VIAL IV PUSH (17:41)
[2020-06-05] MEDS: DEXAMETHASONE SOD PHOS INJ 4 MG/ML VIAL IV PUSH (17:56)
[2020-06-05] MEDS: SODIUM CHLORIDE 0.9% IV 1,000 ML 125 ML IV CONT (19:47)
--- NOTE | 2020-06-05 20:00 | PM.IMHP ---
H&P: HPI History of Present Illness Date/Time: 06/05/20 20:00 Chief Complaint: Abdominal pain. Narrative: Popeye Copeland II is a 39-year-old male with ulcerative colitis, history of pulmonary embolism, and anxiety who presented to the emergency department earlier today from home with complaints of worsening abdominal pain. He is known to myself and the hospitalist service with 2 recent admissions for ulcerative colitis flares. In fact he was just discharged this morning after being admitted for the last 7 days. He felt much better this morning and it looks like he had been receiving mesalamine and Solu-Medrol during that hospitalization. Unfortunately approximately 3 hours after returning home his pain began to worsen, severe enough that he rates his pain 10/10. He also continues to have loose stools, nausea, and vomiting. In addition to the pain he is pretty stressed and frustrated as he is just not getting better or lasting relief. He had pretty significant disease and vincent colitis on colonoscopy per Dr. Wick on 06/02/[address] Serna (general surgery) while hospitalized as he wishes to pursue surgical management given ongoing issues with his UC (the last 2 to 3 years have been pretty severe). Although this would be a last resort, he reports that his sister recently had a total colectomy for her ulcerative colitis and she has been doing great. He does not think he has had a fever but will occasionally have sweats. No cold or flu symptoms. No cough or shortness of breath. Review of Systems Review of Systems: Narrative: Twelve systems were reviewed with pertinent positives and negatives as per HPI. He has lost nearly 40 lb in the last month or so due to ongoing issues with his ulcerative colitis. [facility] Past Medical History Medical History (Updated 06/05/20 @ 23:01 by Aga Burch PA-C) Anxiety Deep venous thrombosis (~02/2019) History of pancreatitis History of pulmonary embolism Pulmonary embolism Pulmonary embolism (~02/2019) Ulcerative colitis Surgical History Surgical History History of knee surgery History right knee surgery/washout secondary to joint infection. Family History Family History Sibling Inflammatory bowel disease Mother Inflammatory bowel disease Sibling Ulcerative colitis Mother , Mother from an overdose at age 52. No problems noted. Father , Father was morbidly obese and from complications of an infection. No problems noted. Social History Social History Social History: Lives in [place] with his linettee and children. He has not worked for several years due to his ulcerative colitis. He chews tobacco. Will drink heavily on the weekends. Occasional marijuana use. His dustin Kaplan is his surrogate decision maker and he wishes to be a full code. Smoking status: Never smoker Second hand tobacco smoke exposure: No Alcohol intake: never Drinks per week: 5 Substance use: never Substance use type: marijuana Other substance usage details: Occasionally smokes marijuana/drinks alcohol Last use: 05/17/2020 Gender identity (if verbalized by the patient): Male Spiritual care concerns: No Meds Home Medications and Allergies Home Medications Medication Instructions Recorded Confirmed Type Humira Pen 40 mg SUBCUT [id number] 30 Days #4 ea 06/05/20 05/24/20 Rx buspirone 10 mg PO BID 30 Days #60 tablet 06/05/20 05/25/20 Rx escitalopram oxalate 10 mg PO DAILY 30 Days #30 tablet 06/05/20 05/30/20 Rx mesalamine [Delzicol] 400 mg PO TID 30 Days #90 ea 06/05/20 Rx methylprednisolone [Methylpred DP] See Rx Instructions .ROUTE 06/05/20 Rx .COMPLEX #1 ea prednisone See Rx Instructions .ROUTE 06/05/20 Rx .COMPLEX 15 Days #180 tablet
--- NOTE | 2020-06-05 21:08 | PC.NURSE ---
This patient, Popeye Hernandez II, was admitted to 2 Medical Room 255-01. Patient/family oriented to hospital policies and general routines including ID bracelet, bed and alarms, visiting hours, pain management, procedures, bathroom and other care routines, personal items, smoking policy, room service/diet, and visiting hours. Information on how to activate the Rapid Response Team has been discussed. Patient/Family are encouraged to report perceived risks to care and to ask questions if they do not understand what they are told or what they should do. Spoke with Shaye Burch regarding pain medication multiple time awaiting orders.
[2020-06-05 22:00] VITALS: BP 138/83; PULSE 70; RESP 20; TEMP 36.3; O2SAT 100
[2020-06-05 22:19] VITALS: BMI 27.9
[2020-06-06] MEDS: LORazepam INJ (*CRX) 2 MG/ML VIAL 0.5 MG IV PUSH ×2 (00:24→12:55)
[2020-06-06] MEDS: HYDROmorphone HCL INJ (*CRX) 1 MG/ML SYR 0.5 MG IV PUSH ×10 (02:30→22:44)
[2020-06-06] MEDS: ONDANSETRON INJ 4 MG/2 ML VIAL IV PUSH ×5 (02:31→20:34)
[2020-06-06] MEDS: SODIUM CHLORIDE 0.9% IV 1,000 ML 125 ML IV CONT (02:33)
[2020-06-06 05:43] LABS: Hematocrit 41.8 % (42.0-52.0); Mean Corpuscular HGB Conc 33.5 g/dl (32-36); Mean Corpuscular Hemoglobin 29.5 pg (26-34); Mean Platelet Volume 9.7 fl (7.4-10.4); Platelet Count Result 428 k/mm3 (150-375); Red Blood Count 4.75 M/mm3 (4.6-6.20); Red Cell Distribution Width 13.2 % (11.5-14.5); White Blood Count 7.2 K/mm3 (4.5-10.0)
[2020-06-06 05:59] LABS: Alanine Aminotransferase 28 U/L (4-50); Albumin Level 2.9 g/dL (3.5-5.1); Alkaline Phosphatase 43 U/L (38-126); Anion Gap 5 mmol/L (8-16); Aspartate Amino Transferase 18 U/L (17-59); Bilirubin,Total 0.4 mg/dL (0.2-1.3); Blood Urea Nitrogen 15 mg/dL (9-20); Calcium 8.4 mg/dL (8.4-10.2); Carbon Dioxide 27 mmol/L (22-30); Chloride 104 mmol/L (98-107); Estimated CRCL calculation 142 ml/min; Estimated Glomerular Filt Rate > 60; Glucose 146 mg/dL (75-110); Magnesium 1.8 mg/dL (1.6-2.3); Potassium 3.9 mmol/L (3.4-5.0); Sodium 136 mmol/L (137-145)
[2020-06-06 06:00] VITALS: BP 127/83; PULSE 60; RESP 20; TEMP 36.3; O2SAT 96
[2020-06-06] MEDS: DEXAMETHASONE SOD PHOS INJ 4 MG/ML VIAL IV PUSH ×2 (06:12→17:28)
--- NOTE | 2020-06-06 08:33 | PM.IMPN ---
Progress Note: A&P Assessment and Plan (1) Exacerbation of ulcerative colitis: Code(s): K51.90 - Ulcerative colitis, unspecified, without complications Status: Acute Assessment and Plan: Will continue current med treatment and consult gastroenterology service. (2) Anxiety: Code(s): F41.9 - Anxiety disorder, unspecified Status: Acute Assessment and Plan: Stable on current medications. (3) History of pulmonary embolism: Code(s): Z86.711 - Personal history of pulmonary embolism Status: Acute Assessment and Plan: On subcutaneous heparin. (4) Elevated blood pressure reading: Code(s): R03.0 - Elevated blood-pressure reading, without diagnosis of hypertension Status: Acute Assessment and Plan: Monitor blood pressure closely probably secondary to pain at present time. Additional Plan Will continue with pain medications and consult Gastroenterology, monitor blood pressure closely. Subjective Date/time seen: 06/06/20 08:33 Interval history: Patient was seen during the monitor lungs today. Patient complained of having mild generalized abdominal pain. Patient also complained of a mild nausea. No vomiting. No fever or chills. No shortness of breath or chest pain. Review of Systems Review of Systems: Narrative: All review of systems are negative except as mentioned in the history and physical exam. Exam Narrative: Exam Narrative: General: Ill-appearing male lying on his right side in bed in quite a bit of pain. Weight: 100 kg. BMI: 27.9. HEENT: PERRL, EOMI. Sclerae anicteric. Mucous membranes are tacky. Neck: Supple. Respiratory: Lungs are clear to auscultation bilaterally. Cardiovascular: Tachycardic with S1-S2. Gastrointestinal: Abdomen is soft and nondistended. He is tender to palpation diffusely throughout the abdomen with voluntary guarding. No rebound tenderness. Skin: Warm and dry. No rash or lesions on limited exam. Extremities: No cyanosis, clubbing, or edema. Radial and pedal pulses intact. Neurological: Alert. Cranial nerves 2-12 are grossly intact. No gross focal deficits to casual conversation. Psychiatric: Cooperative. Appropriate mood and affect. Const: General: cooperative and no acute distress Orientation/consciousness: oriented to person, oriented to place, oriented to time and patient oriented x3 HENMT: Head: normal to inspection Ears: hearing grossly normal bilaterally and external ears normal General nose exam: Normal external nose present Face and sinus: normal facial exam Mouth: Yes Normal oral and palatal mucosa present Eyes: General: appearance normal, both eyes and all related structures Neck: Neck: normal visual inspection and full ROM Chest: Chest palpation & inspection: normal inspection of the chest and normal palpation of entire chest wall Resp: Effort & Inspection: normal respiratory effort Auscultation: clear to auscultation bilaterally Cardio: Jugular venous distension: no JVD Palpation: normal PMI Rate: regular rate Heart sounds: S1 normal heart sound present and S2 normal heart sound present GI: Inspection: normal to inspection GI Palp: No abdominal tenderness Neuro: General: oriented to person, oriented to place, oriented to time and patient oriented x3 Cranial nerves: Yes CN's II-XII intact bilaterally Speech: normal speech Gait exam (Neuro): Normal gait present Motor exam (neuro): 5/5 motor strength present throughout Sensory Exam: normal sensation Psych: Appearance: grossly normal Objective Data Vital Signs Vital Signs: Vital Signs - 24 hr 06/05/20 15:08 06/05/20 22:00 06/06/20 06:00 Temperature 36.4 C L 36.3 C L 36.3 C L Pulse Rate 125 H 70 60 Respiratory Rate 22 H 20 20 Blood Pressure 156/113 H 138/83 127/83 Pulse Oximetry 100 100 96 Intake/Output Intake/Output: Intake & Output 06/03/20 06/04/20 06/05/20 06/06/20 23:59 23:59 23:59 23:59 Intake Total 2100 15
[2020-06-06 09:10] LABS: Band Neutrophils Percent 9 % (0-6); Lymphocytes Absolute Manual 1.65 K/mm3 (1.1-4.5); Monocytes Absolute Manual 0.86 K/mm3 (0.1-0.90); Monocytes Percent Manual 12 % (3-9); Neutrophils Absolute Manual 4.68 K/mm3 (1.3-6.7); Neutrophils Percent Manual 56 % (46-73); Total Cells Counted 100
[2020-06-06 09:11] LABS: Platelet Estimate Increased (Adequate)
[2020-06-06] MEDS: HEPARIN SODIUM 5,000 UNITS/ML VIAL 5000 UNITS SUB-Q ×2 (09:23→22:10)
[2020-06-06] MEDS: PANTOPRAZOLE SODIUM IV 40 MG VIAL IV PUSH (09:23)
[2020-06-06] MEDS: ESCITALOPRAM OXALATE 10 MG TABLET PO (09:25)
[2020-06-06] MEDS: busPIRone HCL 10 MG TABLET PO (09:25)
[2020-06-06] MEDS: MESALAMINE 400 MG DELAYED RELEASE CAPSULE PO ×3 (09:25→16:55)
[2020-06-06 09:27] VITALS: RESP 20; O2SAT 97
[2020-06-06] MEDS: SODIUM CHLORIDE 0.9% IV 1,000 ML 100 ML IV CONT ×2 (10:10→22:51)
[2020-06-06 14:00] VITALS: BP 128/76; PULSE 70; RESP 18; TEMP 36.7; O2SAT 98
[2020-06-06 22:00] VITALS: BP 139/82; PULSE 59; RESP 16; TEMP 36.1; O2SAT 96
[2020-06-06] MEDS: ZOLPIDEM TARTRATE (*CRX) 5 MG TABLET 10 MG PO (22:11)
[2020-06-07] MEDS: HYDROmorphone HCL INJ (*CRX) 1 MG/ML SYR 0.5 MG IV PUSH ×9 (01:02→22:40)
[2020-06-07] MEDS: ONDANSETRON INJ 4 MG/2 ML VIAL IV PUSH ×5 (01:02→20:07)
[2020-06-07 05:34] VITALS: BP 139/95; PULSE 75; RESP 16; TEMP 36.3; O2SAT 99
[2020-06-07] MEDS: DEXAMETHASONE SOD PHOS INJ 4 MG/ML VIAL IV PUSH ×2 (05:40→17:35)
[2020-06-07] MEDS: LORazepam INJ (*CRX) 2 MG/ML VIAL 0.5 MG IV PUSH (05:43)
[2020-06-07] MEDS: SODIUM CHLORIDE 0.9% IV 1,000 ML 100 ML IV CONT ×2 (06:30→17:52)
--- NOTE | 2020-06-07 08:22 | PM.IMPN ---
Progress Note: A&P Assessment and Plan (1) Exacerbation of ulcerative colitis: Code(s): K51.90 - Ulcerative colitis, unspecified, without complications Status: Acute Assessment and Plan: Will continue current med treatment and consult gastroenterology service. (2) Anxiety: Code(s): F41.9 - Anxiety disorder, unspecified Status: Acute Assessment and Plan: Stable on current medications. (3) History of pulmonary embolism: Code(s): Z86.711 - Personal history of pulmonary embolism Status: Acute Assessment and Plan: On subcutaneous heparin. (4) Elevated blood pressure reading: Code(s): R03.0 - Elevated blood-pressure reading, without diagnosis of hypertension Status: Acute Assessment and Plan: Monitor blood pressure closely probably secondary to pain at present time. Additional Plan Will continue with pain medications and consult Gastroenterology, monitor blood pressure closely. Labs normal Subjective Date/time seen: 06/07/20 08:22 Interval history: Patient was seen during the monitor lungs today. Patient complained of having mild generalized abdominal pain. Patient also complained of a mild nausea. No vomiting. No fever or chills. No shortness of breath or chest pain. Still requiring pain meds on regular basis. Review of Systems Review of Systems: All systems reviewed & are unremarkable except as noted in HPI and below (the history and physical) Exam Narrative: Exam Narrative: General: Ill-appearing male lying on his right side in bed in quite a bit of pain. Weight: 100 kg. BMI: 27.9. HEENT: PERRL, EOMI. Sclerae anicteric. Mucous membranes are tacky. Neck: Supple. Respiratory: Lungs are clear to auscultation bilaterally. Cardiovascular: Tachycardic with S1-S2. Gastrointestinal: Abdomen is soft and nondistended. He is tender to palpation diffusely throughout the abdomen with voluntary guarding. No rebound tenderness. Skin: Warm and dry. No rash or lesions on limited exam. Extremities: No cyanosis, clubbing, or edema. Radial and pedal pulses intact. Neurological: Alert. Cranial nerves 2-12 are grossly intact. No gross focal deficits to casual conversation. Psychiatric: Cooperative. Appropriate mood and affect. Const: General: cooperative and no acute distress Orientation/consciousness: oriented to person, oriented to place, oriented to time and patient oriented x3 HENMT: Head: normal to inspection Ears: hearing grossly normal bilaterally and external ears normal General nose exam: Normal external nose present Face and sinus: normal facial exam Mouth: Yes Normal oral and palatal mucosa present Eyes: General: appearance normal, both eyes and all related structures Neck: Neck: normal visual inspection and full ROM Chest: Chest palpation & inspection: normal inspection of the chest and normal palpation of entire chest wall Resp: Effort & Inspection: normal respiratory effort Auscultation: clear to auscultation bilaterally Cardio: Jugular venous distension: no JVD Palpation: normal PMI Rate: regular rate Heart sounds: S1 normal heart sound present and S2 normal heart sound present GI: Inspection: normal to inspection GI Palp: No abdominal tenderness Neuro: General: oriented to person, oriented to place, oriented to time and patient oriented x3 Cranial nerves: Yes CN's II-XII intact bilaterally Speech: normal speech Gait exam (Neuro): Normal gait present Motor exam (neuro): 5/5 motor strength present throughout Sensory Exam: normal sensation Psych: Appearance: grossly normal Objective Data Vital Signs Vital Signs: Vital Signs - 24 hr 06/06/20 09:27 06/06/20 14:00 06/06/20 22:00 Temperature 36.7 C 36.1 C L Pulse Rate 70 59 L Respiratory Rate 20 18 16 Blood Pressure 128/76 139/82 Pulse Oximetry 97 98 96 06/07/20 05:34 Temperature 36.3 C L Pulse Rate 75 Respiratory Rate 16 Blood Pressure 139/95 H Pulse
[2020-06-07 08:51] VITALS: RESP 16; O2SAT 99
[2020-06-07] MEDS: HEPARIN SODIUM 5,000 UNITS/ML VIAL 5000 UNITS SUB-Q ×2 (08:51→20:08)
[2020-06-07] MEDS: PANTOPRAZOLE SODIUM IV 40 MG VIAL IV PUSH (08:51)
[2020-06-07] MEDS: MESALAMINE 400 MG DELAYED RELEASE CAPSULE PO ×3 (08:51→17:35)
[2020-06-07] MEDS: ESCITALOPRAM OXALATE 10 MG TABLET PO (08:51)
--- NOTE | 2020-06-07 09:42 | P.PNGI_ITS ---
Progress Note: A&P Additional Plan [facility] Flare Decadron Add Levaquin and Flagyl Supportive care Consult dictated #[id number] Subjective Date/time seen: 06/07/20 09:42 Objective Data Vital Signs Vital Signs: Vital Signs - 24 hr 06/06/20 14:00 06/06/20 22:00 06/07/20 05:34 Temperature 36.7 C 36.1 C L 36.3 C L Pulse Rate 70 59 L 75 Respiratory Rate 18 16 16 Blood Pressure 128/76 139/82 139/95 H Pulse Oximetry 98 96 99 Intake/Output Intake/Output: Intake & Output 06/04/20 06/05/20 06/06/20 06/07/20 23:59 23:59 23:59 23:59 Intake Total 2100 4590 1100 Output Total 100 Balance 2100 4490 1100 Meds/Results Medications: Active Medications Generic Name Dose Route Start Last Admin Trade Name Freq PRN Reason Stop Dose Admin Buspirone HCl 10 mg 06/06/20 09:00 06/07/20 08:52 Buspirone Hcl 10 Mg Tablet PO Not Given BID [facility] Dexamethasone Sodium Phosphate 4 mg 06/06/20 06:00 06/07/20 05:40 Dexamethasone Sod Phos Inj 4 Mg/Ml Vial IV PUSH 4 mg Q12H DONALD Administration Escitalopram Oxalate 10 mg 06/06/20 09:00 06/07/20 08:51 Escitalopram Oxalate 10 Mg Tablet PO 10 mg DAILY DONALD Administration Heparin Sodium (Porcine) 5,000 units 06/06/20 09:00 06/07/20 08:51 Heparin Sodium 5,000 Units/Ml Vial SUB-Q 5,000 units Q12HR DONALD Administration Hydromorphone HCl 0.5 mg 06/05/20 21:02 06/07/20 07:14 Hydromorphone Hcl Inj (*Crx) 1 Mg/Ml Syr IV PUSH 0.5 mg Q2H PRN Administration Pain Rated 7-10 Sodium Chloride 1,000 mls @ 100 mls/hr 06/05/20 17:50 06/07/20 06:30 Normal Saline Iv IV CONT 100 mls/hr .Q10H DONALD Administration Levofloxacin/Dextrose 500 mg in 100 mls @ 100 mls/hr 06/07/20 09:35 Levaquin 500 Mg/D5w 100 Ml IVPB Q24H DONALD Metronidazole 500 mg in 100 mls @ 100 mls/hr 06/07/20 09:35 Flagyl 500 Mg/Iso Soln 100 Ml IVPB Q8H DONALD Lorazepam 0.5 mg 06/05/20 23:04 06/07/20 05:43 Lorazepam Inj (*Crx) 2 Mg/Ml Vial IV PUSH 0.5 mg BID PRN Administration Anxiety Mesalamine 400 mg 06/06/20 09:00 06/07/20 08:51 Mesalamine 400 Mg Delayed Release Capsule PO 400 mg TID DONALD Administration Ondansetron HCl 4 mg 06/05/20 21:30 06/07/20 04:55 Ondansetron Inj 4 Mg/2 Ml Vial IV PUSH 4 mg Q4H PRN Administration Nausea And Vomiting Pantoprazole Sodium 40 mg 06/06/20 09:00 06/07/20 08:51 Pantoprazole Sodium Iv 40 Mg Vial IV PUSH 40 mg QAM DONALD Administration Zolpidem Tartrate 10 mg 06/05/20 21:32 Zolpidem Tartrate (*Crx) 5 Mg Tablet PO HS PRN Insomnia Zolpidem Tartrate 10 mg 06/05/20 23:20 06/06/20 22:11 Zolpidem Tartrate (*Crx) 5 Mg Tablet PO 10 mg HS DONALD Administration Radiology Results: ITS Impressions Abdomen X-Ray 06/05/20 16:35 IMPRESSION: 1. No acute abdominal abnormality.
[2020-06-07] MEDS: levoFLOXacin 500 MG/D5W 100 ML 500 MG/100 ML BAG 100 MG IVPB (09:57)
--- NOTE | 2020-06-07 10:43 | CONS_ITS ---
DATE OF CONSULTATION: 06/07/2020 HISTORY OF PRESENT ILLNESS: A 39-year-old male with history of ulcerative colitis, pancreatitis, DVT, PE, anxiety, and right knee surgery, who presents for multiple GI complaints. I am now asked to provide GI evaluation at the request of the hospitalist service for same. His primary care provider is Dr. Leonard Michael and his primary news department intern is Dr. Wick. The patient has had 2 recent admissions for ulcerative colitis and flares and was just discharged on June 05 after 7 days only to present 3 hours later with severe abdominal pain, nausea, vomiting, and diarrhea. There was no coffee-ground or hematemesis. He has had hematochezia with this. The pain was generalized at first and now is localized in the periumbilical area. He describes it as a shredding sensation. It is nonradiating. It gets worse with bowel movements and there is no associated with oral intake. He has had a poor appetite over the course of this illness and has lost 30 pounds over the past 2 weeks, though his appetite is typically good. He has 15-40 bowel movements per day that are liquid and occasionally bloody. In general, he denies trouble swallowing. He does have significant heartburn. He denies melena, fever, jaundice, scleral icterus, dark urine, light stools, itching, hot or cold intolerance, chest pain, shortness of breath at rest, hematuria, dysuria, new cough or visual changes, easy bruising, tingling of skin, bone pain, or tremors. The patient was diagnosed with ulcerative colitis in 2009. He has been on Humira for 8 months. They are preparing to increase his Humira to weekly and he is due for Humira trough and antibody level. No history of endocarditis, rheumatic fever, dental prophylaxis, heart valve surgery, or bleeding disorder. ALLERGIES: NO KNOWN DRUG ALLERGIES. MEDICATIONS: Include: 1. Humira. 2. Delzicol. 3. Prednisone. 4. Lexapro. 5. BuSpar. 6. Ambien. SOCIAL HISTORY: Chews tobacco. Does drink excessively on the weekends. Occasional marijuana use. FAMILY HISTORY: Negative for GI malignancy or IBD. Colonoscopy done on June 02, 2020, shows pancolitis. GI is normal. PHYSICAL EXAMINATION: GENERAL: Well-developed, well-nourished male lying in bed, in mild discomfort. He has no lower extremity edema, jaundice, spider angioma, palmar erythema. HEENT: Skull is normocephalic, atraumatic. Pupils nonicteric. Oropharynx clear. NECK: Supple without thyromegaly. LUNGS: Clear to auscultation. HEART: Rate and rhythm regular. S1, S2 normal. ABDOMEN: Normal bowel sounds. Soft. Periumbilical tenderness. Nonrigid, nondistended without hepatosplenomegaly or masses. No guarding. RECTAL: Deferred. NEURO: Conscious, alert x3. LABORATORY DATA: On June 06, hemoglobin 14, hematocrit 42, white count 7. LFTs are normal. On June 05, CBC normal, white count 6. LFTs and lipase are normal. Abdominal x-ray unremarkable. On May 30, CRP is 2.7. On May 25, CRP is 7.5. ASSESSMENT/PLAN: Abdominal pain, nausea, vomiting, diarrhea, and weight loss, likely due to flare of ulcerative colitis. We will manage inpatient with Decadron 4 mg IV q.12 and add Levaquin and Flagyl. This will take a few days to have significant effect. Otherwise, continue supportive care, clear liquid diet, and observe. I will leave further outpatient management to Dr. Wick. The patient is requesting consideration of colectomy when stable. I have explained that it is still important to have maximal medical improvement prior to colectomy. The patient is agreeable. Thank you for allowing me to share in the care of this complicated patient.
[2020-06-07] MEDS: metroNIDAZOLE 500 MG/ISO 100ML 500 MG/100 ML BAG 100 MG IVPB ×2 (12:11→20:07)
[2020-06-07 13:23] VITALS: BMI 27.9
[2020-06-07 14:05] VITALS: BP 123/89; PULSE 65; RESP 16; TEMP 36.8; O2SAT 96
[2020-06-07 22:00] VITALS: BP 122/84; PULSE 98; RESP 16; TEMP 36.2; O2SAT 98
[2020-06-07] MEDS: ZOLPIDEM TARTRATE (*CRX) 5 MG TABLET 10 MG PO (22:41)
[2020-06-08] MEDS: ONDANSETRON INJ 4 MG/2 ML VIAL IV PUSH ×6 (01:01→21:42)
[2020-06-08] MEDS: LORazepam INJ (*CRX) 2 MG/ML VIAL 0.5 MG IV PUSH ×3 (01:01→21:16)
[2020-06-08] MEDS: HYDROmorphone HCL INJ (*CRX) 1 MG/ML SYR 0.5 MG IV PUSH ×10 (01:02→21:42)
[2020-06-08] MEDS: metroNIDAZOLE 500 MG/ISO 100ML 500 MG/100 ML BAG 100 MG IVPB ×3 (03:30→19:48)
[2020-06-08] MEDS: SODIUM CHLORIDE 0.9% IV 1,000 ML 100 ML IV CONT ×2 (05:37→19:52)
[2020-06-08] MEDS: DEXAMETHASONE SOD PHOS INJ 4 MG/ML VIAL IV PUSH ×2 (05:38→17:42)
[2020-06-08 06:00] VITALS: BP 145/91; PULSE 56; RESP 16; TEMP 36.4; O2SAT 99
--- NOTE | 2020-06-08 08:00 | PM.IMPN ---
Progress Note: A&P Assessment and Plan (1) Exacerbation of ulcerative colitis: Code(s): K51.90 - Ulcerative colitis, unspecified, without complications Status: Acute Assessment and Plan: Will continue current med treatment and consult gastroenterology service. (2) Anxiety: Code(s): F41.9 - Anxiety disorder, unspecified Status: Acute Assessment and Plan: Stable on current medications. (3) History of pulmonary embolism: Code(s): Z86.711 - Personal history of pulmonary embolism Status: Acute Assessment and Plan: On subcutaneous heparin. (4) Elevated blood pressure reading: Code(s): R03.0 - Elevated blood-pressure reading, without diagnosis of hypertension Status: Acute Assessment and Plan: Monitor blood pressure closely probably secondary to pain at present time. Additional Plan Gastroenterology consult noted. Will repeat a CBC and BMP in the morning. Will continue current plan of care and treatment. Patient pain is slightly better. Subjective Date/time seen: 06/08/20 08:00 Interval history: Patient was seen during the monitor lungs today. Patient complained of having mild generalized abdominal pain. Patient also complained of a mild nausea. No vomiting. No fever or chills. No shortness of breath or chest pain. Still requiring pain meds on regular basis. No new complaint. Review of Systems Review of Systems: All systems reviewed & are unremarkable except as noted in HPI and below (the history and physical) Exam Narrative: Exam Narrative: General: Ill-appearing male lying on his right side in bed in quite a bit of pain. Weight: 100 kg. BMI: 27.9. HEENT: PERRL, EOMI. Sclerae anicteric. Mucous membranes are tacky. Neck: Supple. Respiratory: Lungs are clear to auscultation bilaterally. Cardiovascular: Tachycardic with S1-S2. Gastrointestinal: Abdomen is soft and nondistended. He is tender to palpation diffusely throughout the abdomen with voluntary guarding. No rebound tenderness. Skin: Warm and dry. No rash or lesions on limited exam. Extremities: No cyanosis, clubbing, or edema. Radial and pedal pulses intact. Neurological: Alert. Cranial nerves 2-12 are grossly intact. No gross focal deficits to casual conversation. Psychiatric: Cooperative. Appropriate mood and affect. Const: General: cooperative and no acute distress Orientation/consciousness: oriented to person, oriented to place, oriented to time and patient oriented x3 HENMT: Head: normal to inspection Ears: hearing grossly normal bilaterally and external ears normal General nose exam: Normal external nose present Face and sinus: normal facial exam Mouth: Yes Normal oral and palatal mucosa present Eyes: General: appearance normal, both eyes and all related structures Neck: Neck: normal visual inspection and full ROM Chest: Chest palpation & inspection: normal inspection of the chest and normal palpation of entire chest wall Resp: Effort & Inspection: normal respiratory effort Auscultation: clear to auscultation bilaterally Cardio: Jugular venous distension: no JVD Palpation: normal PMI Rate: regular rate Heart sounds: S1 normal heart sound present and S2 normal heart sound present GI: Inspection: normal to inspection Neuro: General: oriented to person, oriented to place, oriented to time and patient oriented x3 Cranial nerves: Yes CN's II-XII intact bilaterally Speech: normal speech Gait exam (Neuro): Normal gait present Motor exam (neuro): 5/5 motor strength present throughout Sensory Exam: normal sensation Psych: Appearance: grossly normal Objective Data Vital Signs Vital Signs: Vital Signs - 24 hr 06/07/20 08:51 06/07/20 14:05 06/07/20 22:00 Temperature 36.8 C 36.2 C L Pulse Rate 65 98 Respiratory Rate 16 16 16 Blood Pressure 123/89 122/84 Pulse Oximetry 99 96 98 06/08/20 06:00 Temperature 36.4 C Pulse Rate 56 L Respiratory Rate
[2020-06-08] MEDS: MESALAMINE 400 MG DELAYED RELEASE CAPSULE PO ×3 (08:26→17:42)
[2020-06-08] MEDS: PANTOPRAZOLE SODIUM IV 40 MG VIAL IV PUSH (08:26)
[2020-06-08] MEDS: ESCITALOPRAM OXALATE 10 MG TABLET PO (08:26)
[2020-06-08] MEDS: levoFLOXacin 500 MG/D5W 100 ML 500 MG/100 ML BAG 100 MG IVPB (08:26)
[2020-06-08] MEDS: HEPARIN SODIUM 5,000 UNITS/ML VIAL 5000 UNITS SUB-Q ×2 (08:27→21:14)
[2020-06-08 14:00] VITALS: BP 131/80; PULSE 67; RESP 18; TEMP 36.1; O2SAT 95
[2020-06-08 21:33] VITALS: BP 136/80; PULSE 60; RESP 16; TEMP 36.3; O2SAT 96
[2020-06-08] MEDS: ZOLPIDEM TARTRATE (*CRX) 5 MG TABLET 10 MG PO (21:44)
[2020-06-09] MEDS: ONDANSETRON INJ 4 MG/2 ML VIAL IV PUSH ×5 (01:48→21:11)
[2020-06-09] MEDS: HYDROmorphone HCL INJ (*CRX) 1 MG/ML SYR 0.5 MG IV PUSH ×9 (01:49→21:11)
[2020-06-09] MEDS: metroNIDAZOLE 500 MG/ISO 100ML 500 MG/100 ML BAG 100 MG IVPB ×3 (04:02→19:51)
[2020-06-09 05:55] VITALS: BP 124/80; PULSE 60; RESP 16; TEMP 36.1; O2SAT 99
[2020-06-09] MEDS: DEXAMETHASONE SOD PHOS INJ 4 MG/ML VIAL IV PUSH ×2 (06:05→17:09)
[2020-06-09 06:15] LABS: Hematocrit 38.6 % (42.0-52.0); Hemoglobin 12.8 g/dL (14.0-18.0); Mean Corpuscular HGB Conc 33.2 g/dl (32-36); Mean Corpuscular Hemoglobin 29.8 pg (26-34); Mean Corpuscular Volume 89.8 fl (80-100); Mean Platelet Volume 9.6 fl (7.4-10.4); Platelet Count Result 431 k/mm3 (150-375); Red Cell Distribution Width 13.2 % (11.5-14.5); White Blood Count 10.3 K/mm3 (4.5-10.0)
[2020-06-09 06:20] LABS: Alanine Aminotransferase 27 U/L (4-50); Albumin Level 2.7 g/dL (3.5-5.1); Alkaline Phosphatase 42 U/L (38-126); Anion Gap 4 mmol/L (8-16); Aspartate Amino Transferase 20 U/L (17-59); Bilirubin,Total 0.2 mg/dL (0.2-1.3); Blood Urea Nitrogen 9 mg/dL (9-20); Calcium 8.3 mg/dL (8.4-10.2); Carbon Dioxide 30 mmol/L (22-30); Chloride 101 mmol/L (98-107); Estimated CRCL calculation 142 ml/min; Estimated Glomerular Filt Rate > 60; Glucose 92 mg/dL (75-110); Potassium 4.1 mmol/L (3.4-5.0); Sodium 135 mmol/L (137-145)
[2020-06-09] MEDS: SODIUM CHLORIDE 0.9% IV 1,000 ML 100 ML IV CONT ×2 (06:46→17:08)
--- NOTE | 2020-06-09 08:50 | PM.IMPN ---
Progress Note: A&P Assessment and Plan (1) Exacerbation of ulcerative colitis: Code(s): K51.90 - Ulcerative colitis, unspecified, without complications Status: Acute Assessment and Plan: Will continue current med treatment and consult gastroenterology service. (2) Anxiety: Code(s): F41.9 - Anxiety disorder, unspecified Status: Acute Assessment and Plan: Stable on current medications. (3) History of pulmonary embolism: Code(s): Z86.711 - Personal history of pulmonary embolism Status: Acute Assessment and Plan: On subcutaneous heparin. (4) Elevated blood pressure reading: Code(s): R03.0 - Elevated blood-pressure reading, without diagnosis of hypertension Status: Acute Assessment and Plan: Monitor blood pressure closely probably secondary to pain at present time. Additional Plan Gastroenterology consult noted. Will repeat a CBC and BMP in the morning. Will continue current plan of care and treatment. Patient pain is slightly better. Subjective Date/time seen: 06/09/20 08:50 Interval history: Patient was seen during the monitor lungs today. Patient complained of having mild generalized abdominal pain. Patient also complained of a mild nausea. No vomiting. No fever or chills. No shortness of breath or chest pain. Still requiring pain meds on regular basis. No new complaint. Review of Systems Review of Systems: All systems reviewed & are unremarkable except as noted in HPI and below (the history and physical) Exam Narrative: Exam Narrative: General: Ill-appearing male lying on his right side in bed in quite a bit of pain. Weight: 100 kg. BMI: 27.9. HEENT: PERRL, EOMI. Sclerae anicteric. Mucous membranes are tacky. Neck: Supple. Respiratory: Lungs are clear to auscultation bilaterally. Cardiovascular: Tachycardic with S1-S2. Gastrointestinal: Abdomen is soft and nondistended. He is tender to palpation diffusely throughout the abdomen with voluntary guarding. No rebound tenderness. Skin: Warm and dry. No rash or lesions on limited exam. Extremities: No cyanosis, clubbing, or edema. Radial and pedal pulses intact. Neurological: Alert. Cranial nerves 2-12 are grossly intact. No gross focal deficits to casual conversation. Psychiatric: Cooperative. Appropriate mood and affect. Const: General: cooperative and no acute distress Orientation/consciousness: oriented to person, oriented to place, oriented to time and patient oriented x3 HENMT: Head: normal to inspection Ears: hearing grossly normal bilaterally and external ears normal General nose exam: Normal external nose present Face and sinus: normal facial exam Mouth: Yes Normal oral and palatal mucosa present Eyes: General: appearance normal, both eyes and all related structures Neck: Neck: normal visual inspection and full ROM Chest: Chest palpation & inspection: normal inspection of the chest and normal palpation of entire chest wall Resp: Effort & Inspection: normal respiratory effort Auscultation: clear to auscultation bilaterally Cardio: Jugular venous distension: no JVD Palpation: normal PMI Rate: regular rate Heart sounds: S1 normal heart sound present and S2 normal heart sound present GI: Inspection: normal to inspection Neuro: General: oriented to person, oriented to place, oriented to time and patient oriented x3 Cranial nerves: Yes CN's II-XII intact bilaterally Speech: normal speech Gait exam (Neuro): Normal gait present Motor exam (neuro): 5/5 motor strength present throughout Sensory Exam: normal sensation Psych: Appearance: grossly normal Objective Data Vital Signs Vital Signs: Vital Signs - 24 hr 06/08/20 14:00 06/08/20 21:33 06/09/20 05:55 Temperature 36.1 C L 36.3 C L 36.1 C L Pulse Rate 67 60 60 Respiratory Rate 18 16 16 Blood Pressure 131/80 136/80 124/80 Pulse Oximetry 95 96 99 Intake/Output Intake/Output: Intake & Output 1
[2020-06-09] MEDS: MESALAMINE 400 MG DELAYED RELEASE CAPSULE PO ×3 (09:16→16:47)
[2020-06-09] MEDS: ESCITALOPRAM OXALATE 10 MG TABLET PO (09:16)
[2020-06-09] MEDS: LORazepam INJ (*CRX) 2 MG/ML VIAL 0.5 MG IV PUSH ×2 (09:21→19:51)
[2020-06-09] MEDS: PANTOPRAZOLE SODIUM IV 40 MG VIAL IV PUSH (09:21)
[2020-06-09] MEDS: HEPARIN SODIUM 5,000 UNITS/ML VIAL 5000 UNITS SUB-Q ×2 (09:21→21:11)
[2020-06-09] MEDS: levoFLOXacin 500 MG/D5W 100 ML 500 MG/100 ML BAG 100 MG IVPB (09:21)
[2020-06-09 14:00] VITALS: BP 123/77; PULSE 70; RESP 16; TEMP 36.4; O2SAT 99
--- NOTE | 2020-06-09 17:09 | WPDGIPROGNO ---
Progress Note: A&P Additional Plan GI Brien laura Amadeo 09 Jun 2020 Feeling better. Less pain. No N/V. Still with diarrhea VSS soft/NT Hct 38. LFT's normal ASSESSMENT/PLAN: Abdominal pain, nausea, vomiting, diarrhea, and weight loss, likely due to flare of ulcerative colitis: - Decadron 4 mg IV q.12 - Levaquin and Flagyl; this will take a few days to have significant effect - Continue supportive care - Advance diet slowly - Try Imodium - Consider colectomy MARILEE Amezcua [phone] Subjective Date/time seen: 06/09/20 17:09 Objective Data Vital Signs Vital Signs: Vital Signs - 24 hr 06/08/20 21:33 06/09/20 05:55 06/09/20 14:00 Temperature 36.3 C L 36.1 C L 36.4 C L Pulse Rate 60 60 70 Respiratory Rate 16 16 16 Blood Pressure 136/80 124/80 123/77 Pulse Oximetry 96 99 99 Intake/Output Intake/Output: Intake & Output 06/06/20 06/07/20 06/08/20 06/09/20 23:59 23:59 23:59 23:59 Intake Total 4590 2985 3810 1900 Output Total 100 1000 700 Balance 4490 2985 2810 1200 Meds/Results Medications: Active Medications Generic Name Dose Route Start Last Admin Trade Name Freq PRN Reason Stop Dose Admin Buspirone HCl 10 mg 06/06/20 09:00 06/09/20 16:47 Buspirone Hcl 10 Mg Tablet PO Not Given BID DONALD Dexamethasone Sodium Phosphate 4 mg 06/06/20 06:00 06/09/20 06:05 Dexamethasone Sod Phos Inj 4 Mg/Ml Vial IV PUSH 4 mg Q12H DONALD Administration Escitalopram Oxalate 10 mg 06/06/20 09:00 06/09/20 09:16 Escitalopram Oxalate 10 Mg Tablet PO 10 mg DAILY DONALD Administration Heparin Sodium (Porcine) 5,000 units 06/06/20 09:00 06/09/20 09:21 Heparin Sodium 5,000 Units/Ml Vial SUB-Q 5,000 units Q12HR DONALD Administration Hydromorphone HCl 0.5 mg 06/05/20 21:02 06/09/20 16:46 Hydromorphone Hcl Inj (*Crx) 1 Mg/Ml Syr IV PUSH 0.5 mg Q2H PRN Administration Pain Rated 7-10 Sodium Chloride 1,000 mls @ 100 mls/hr 06/05/20 17:50 06/09/20 06:46 Normal Saline Iv IV CONT 100 mls/hr .Q10H DONALD Administration Levofloxacin/Dextrose 500 mg in 100 mls @ 100 mls/hr 06/07/20 09:00 06/09/20 10:21 Levaquin 500 Mg/D5w 100 Ml IVPB Infused Q24H DONALD Infusion Metronidazole 500 mg in 100 mls @ 100 mls/hr 06/07/20 12:00 06/09/20 12:56 Flagyl 500 Mg/Iso Soln 100 Ml IVPB Infused Q8H DONALD Infusion Lorazepam 0.5 mg 06/05/20 23:04 06/09/20 09:21 Lorazepam Inj (*Crx) 2 Mg/Ml Vial IV PUSH 0.5 mg BID PRN Administration Anxiety Mesalamine 400 mg 06/06/20 09:00 06/09/20 16:47 Mesalamine 400 Mg Delayed Release Capsule PO 400 mg TID DONALD Administration Ondansetron HCl 4 mg 06/05/20 21:30 06/09/20 11:55 Ondansetron Inj 4 Mg/2 Ml Vial IV PUSH 4 mg Q4H PRN Administration Nausea And Vomiting Pantoprazole Sodium 40 mg 06/06/20 09:00 06/09/20 09:21 Pantoprazole Sodium Iv 40 Mg Vial IV PUSH 40 mg QAM DONALD Administration Zolpidem Tartrate 10 mg 06/05/20 21:32 Zolpidem Tartrate (*Crx) 5 Mg Tablet PO HS PRN Insomnia Zolpidem Tartrate 10 mg 06/05/20 23:20 06/08/20 21:44 Zolpidem Tartrate (*Crx) 5 Mg Tablet PO 10 mg HS DONALD Administration Radiology Results: ITS Impressions Abdomen X-Ray 06/05/20 16:35 IMPRESSION: 1. No acute abdominal abnormality. Labs Labs: Laboratory Results - last 24 hr 06/09/20 06/09/20 05:26 05:26 WBC 10.3 H RBC 4.30 L Hgb 12.8 L Hct 38.6 L MCV 89.8 MCH 29.8 MCHC 33.2 RDW 13.2 Plt Count 431 H MPV 9.6 Sodium 135 L Potassium 4.1 Chloride 101 Carbon Dioxide 30 Anion Gap 4 L BUN 9 D Creatinine 0.70 Estim Creat Clear Calc 142 Estimated GFR > 60 Glucose 92 Calcium 8.3 L Total Bilirubin 0.2 AST 20 ALT 27 Alkaline Phosphatase 42 Total Protein 5.0 L Albumin 2.7 L
--- NOTE | 2020-06-09 17:45 | PC.NURSE ---
Patient requesting Dilaudid Q2H PRN. Patient rates his pain 8/10. However, patient appears comfortable, laying in bed watching TV and laughing on his cellphone.
[2020-06-09 20:00] VITALS: BP 126/73; PULSE 74; RESP 20; TEMP 36.2; O2SAT 96
[2020-06-09] MEDS: ZOLPIDEM TARTRATE (*CRX) 5 MG TABLET 10 MG PO (21:10)
[2020-06-09] MEDS: LOPERAMIDE HCL 2 MG CAPSULE PO (21:11)
[2020-06-10] MEDS: HYDROmorphone HCL INJ (*CRX) 1 MG/ML SYR 0.5 MG IV PUSH ×5 (01:31→10:23)
[2020-06-10] MEDS: ONDANSETRON INJ 4 MG/2 ML VIAL IV PUSH ×5 (01:34→22:11)
[2020-06-10 04:00] VITALS: BP 138/81; PULSE 71; RESP 18; TEMP 36.2; O2SAT 100
[2020-06-10] MEDS: metroNIDAZOLE 500 MG/ISO 100ML 500 MG/100 ML BAG 100 MG IVPB ×3 (04:03→20:15)
[2020-06-10] MEDS: SODIUM CHLORIDE 0.9% IV 1,000 ML 100 ML IV CONT ×2 (04:04→16:36)
[2020-06-10] MEDS: DEXAMETHASONE SOD PHOS INJ 4 MG/ML VIAL IV PUSH ×2 (06:11→17:10)
[2020-06-10] MEDS: MESALAMINE 400 MG DELAYED RELEASE CAPSULE PO ×3 (08:11→16:37)
[2020-06-10] MEDS: ESCITALOPRAM OXALATE 10 MG TABLET PO (08:11)
[2020-06-10] MEDS: HEPARIN SODIUM 5,000 UNITS/ML VIAL 5000 UNITS SUB-Q ×2 (08:13→22:11)
[2020-06-10] MEDS: levoFLOXacin 500 MG/D5W 100 ML 500 MG/100 ML BAG 100 MG IVPB (08:15)
[2020-06-10] MEDS: PANTOPRAZOLE SODIUM IV 40 MG VIAL IV PUSH (08:15)
[2020-06-10] MEDS: LORazepam INJ (*CRX) 2 MG/ML VIAL 0.5 MG IV PUSH (08:17)
[2020-06-10] MEDS: HYDROmorphone HCL INJ (*CRX) 1 MG/ML SYR IV PUSH ×5 (12:38→22:11)
--- NOTE | 2020-06-10 13:21 | PM.IMPN ---
Progress Note: A&P Assessment and Plan (1) Exacerbation of ulcerative colitis: Code(s): K51.90 - Ulcerative colitis, unspecified, without complications Status: Acute Assessment and Plan: Seen by Gi continue IV fluids, IV steroids, IV levaquin and flagyl Dilaudid prn for pain, continue to treat for few more days then DC with possible surgery later. (2) Anxiety: Code(s): F41.9 - Anxiety disorder, unspecified Status: Acute Assessment and Plan: Stable on buspar (3) History of pulmonary embolism: Code(s): Z86.711 - Personal history of pulmonary embolism Status: Acute Assessment and Plan: On subcutaneous heparin. (4) Elevated blood pressure reading: Code(s): R03.0 - Elevated blood-pressure reading, without diagnosis of hypertension Status: Acute Assessment and Plan: Chronic and stable Subjective Date/time seen: 06/10/20 13:21 Interval history: Patient history of UC with frequent flares, ongoing diarrhea and abdominal pains, Pt considering surgery, for now continue medical management with IV fluids and iv ABX. Seen by surgery and GI Review of Systems Review of Systems: All systems reviewed & are unremarkable except as noted in HPI and below Exam Narrative: Exam Narrative: General: Ill-appearing male Neck: Supple. Respiratory: Lungs are clear to auscultation bilaterally. Cardiovascular: Tachycardic with S1-S2. Gastrointestinal: Abdomen is soft and nondistended. He is tender to palpation diffusely throughout the abdomen with voluntary guarding. No rebound tenderness. Skin: Warm and dry. No rash or lesions on limited exam. Extremities: No cyanosis, clubbing, or edema. Radial and pedal pulses intact. Neurological: Alert. Cranial nerves 2-12 are grossly intact. No gross focal deficits to casual conversation. Psychiatric: Cooperative. Appropriate mood and affect. Objective Data Vital Signs Vital Signs: Vital Signs - 24 hr 06/09/20 14:00 06/09/20 20:00 06/10/20 04:00 Temperature 36.4 C L 36.2 C L 36.2 C L Pulse Rate 70 74 71 Respiratory Rate 16 20 18 Blood Pressure 123/77 126/73 138/81 Pulse Oximetry 99 96 100 Intake/Output Intake/Output: Intake & Output 06/07/20 06/08/20 06/09/20 06/10/20 23:59 23:59 23:59 23:59 Intake Total 2985 3810 3540 2700 Output Total 1000 1000 750 Balance 2985 2810 5350 1142 Meds/Results Medications: Active Medications Generic Name Dose Route Start Last Admin Trade Name Freq PRN Reason Stop Dose Admin Buspirone HCl 10 mg 06/06/20 09:00 06/10/20 08:41 Buspirone Hcl 10 Mg Tablet PO Not Given BID DONALD Dexamethasone Sodium Phosphate 4 mg 06/06/20 06:00 06/10/20 06:11 Dexamethasone Sod Phos Inj 4 Mg/Ml Vial IV PUSH 4 mg Q12H DONALD Administration Escitalopram Oxalate 10 mg 06/06/20 09:00 06/10/20 08:11 Escitalopram Oxalate 10 Mg Tablet PO 10 mg DAILY DONALD Administration Heparin Sodium (Porcine) 5,000 units 06/06/20 09:00 06/10/20 08:13 Heparin Sodium 5,000 Units/Ml Vial SUB-Q 5,000 units Q12HR DONALD Administration Hydromorphone HCl 1 mg 06/10/20 12:22 06/10/20 12:38 Hydromorphone Hcl Inj (*Crx) 1 Mg/Ml Syr IV PUSH 1 mg Q2H PRN Administration Pain Rated 7-10 Sodium Chloride 1,000 mls @ 100 mls/hr 06/05/20 17:50 06/10/20 04:04 Normal Saline Iv IV CONT 100 mls/hr .Q10H DONALD Administration Levofloxacin/Dextrose 500 mg in 100 mls @ 100 mls/hr 06/07/20 09:00 06/10/20 09:38 Levaquin 500 Mg/D5w 100 Ml IVPB Infused Q24H DONALD Infusion Metronidazole 500 mg in 100 mls @ 100 mls/hr 06/07/20 12:00 06/10/20 12:14 Flagyl 500 Mg/Iso Soln 100 Ml IVPB 100 mls/hr Q8H DONALD Administration Loperamide HCl 2 mg 06/09/20 19:11 06/09/20 21:11 Loperamide Hcl 2 Mg Capsule PO 2 mg PRN PRN Administration Diarrhea Lorazepam 0.5 mg 06/05/20 23:04 06/10/20 08:17 Lorazepam Inj (*Crx) 2 Mg/Ml Vial IV PUSH 0.5 m
[2020-06-10 14:00] VITALS: BP 110/51; PULSE 63; RESP 18; TEMP 36.2; O2SAT 90
--- NOTE | 2020-06-10 15:08 | PCDIET ---
Nutrition Follow-Up Complete: Inadequate oral intake related to ulcerative colitis as evidenced by clear liquid diet order at present, significant documented weight loss of 11.8% x 1 month. Patient to meet estimated nutritional needs. Goal: Progressing towards goal. Continue goal. Pt current nutrition is low fat Nutrition recommendation: Recommend low fiber Last recorded weight is 100 kg, recommend updated weight Bowel Motility: 10 BMs yesterday Labs Reviewed: Na 135, Albumin 2.7, Protein 5.0 Meds Noted: Decadron, NS, Ativan, Zofran, Flagyl, Protonix Additional Notes: Pt with average intake of 56% over last four meals. Pt with family hx of UC. Was dx in 2009. Eats fish, chicken, turkey, eggs, some veggies, but otherwise limited diet. Does c/o bloating after meals and is feeling better with flagyl. Recommend SIBO rule out as this may be exacerbating stool frequency. Encouraged pt to stick to well cooked foods, no skins/no seeds, fork tender foods while in flare. Encouraged intermediate teacher probiotic use and 12hr overnight fast with three hours between meals. We will continue to monitor for adequate intake every seven days.
[2020-06-10 20:00] VITALS: BP 138/77; PULSE 60; RESP 20; TEMP 36.2; O2SAT 97
[2020-06-11] MEDS: HYDROmorphone HCL INJ (*CRX) 1 MG/ML SYR IV PUSH ×10 (00:15→22:05)
[2020-06-11] MEDS: ZOLPIDEM TARTRATE (*CRX) 5 MG TABLET 10 MG PO (00:15)
[2020-06-11] MEDS: metroNIDAZOLE 500 MG/ISO 100ML 500 MG/100 ML BAG 100 MG IVPB ×3 (03:39→19:59)
[2020-06-11] MEDS: SODIUM CHLORIDE 0.9% IV 1,000 ML 100 ML IV CONT (03:39)
[2020-06-11] MEDS: ONDANSETRON INJ 4 MG/2 ML VIAL IV PUSH ×4 (04:17→20:01)
[2020-06-11 04:24] VITALS: BP 141/96; PULSE 70; RESP 18; TEMP 36.3; O2SAT 97
[2020-06-11] MEDS: LORazepam INJ (*CRX) 2 MG/ML VIAL 0.5 MG IV PUSH ×2 (04:48→21:03)
[2020-06-11 05:38] LABS: Hematocrit 39.7 % (42.0-52.0); Hemoglobin 13.2 g/dL (14.0-18.0); Mean Corpuscular HGB Conc 33.2 g/dl (32-36); Mean Corpuscular Hemoglobin 30.3 pg (26-34); Mean Corpuscular Volume 91.3 fl (80-100); Mean Platelet Volume 9.4 fl (7.4-10.4); Platelet Count Result 391 k/mm3 (150-375); Red Blood Count 4.35 M/mm3 (4.6-6.20); Red Cell Distribution Width 13.4 % (11.5-14.5)
[2020-06-11 05:48] LABS: Anion Gap 4 mmol/L (8-16); Blood Urea Nitrogen 9 mg/dL (9-20); Calcium 8.4 mg/dL (8.4-10.2); Carbon Dioxide 29 mmol/L (22-30); Chloride 102 mmol/L (98-107); Estimated CRCL calculation 142 ml/min; Estimated Glomerular Filt Rate > 60; Glucose 119 mg/dL (75-110); Sodium 135 mmol/L (137-145)
[2020-06-11] MEDS: DEXAMETHASONE SOD PHOS INJ 4 MG/ML VIAL IV PUSH ×2 (05:48→17:41)
[2020-06-11] MEDS: levoFLOXacin 500 MG/D5W 100 ML 500 MG/100 ML BAG 100 MG IVPB (08:46)
[2020-06-11] MEDS: PANTOPRAZOLE SODIUM IV 40 MG VIAL IV PUSH (08:49)
[2020-06-11] MEDS: ESCITALOPRAM OXALATE 10 MG TABLET PO (08:49)
[2020-06-11] MEDS: MESALAMINE 400 MG DELAYED RELEASE CAPSULE PO ×3 (08:49→17:42)
[2020-06-11] MEDS: HEPARIN SODIUM 5,000 UNITS/ML VIAL 5000 UNITS SUB-Q ×2 (08:50→20:02)
--- NOTE | 2020-06-11 08:50 | PC.NURSE ---
Patient requesting pain medication Q2H. He watches the clock and calls as soon as the medication is due. If staff doesn't bring pain medication within the 5 minutes that he calls, patient becomes very condescending saying things such as Did they not tell you when I called the first time?, Do they need sticky notes to remind them when I call to ask for pain medications? However, pain medication was brought to patient within 5-10minutes of calling. Patient rates his pain 8/10 when requesting dilaudid. However, he appears comfortable in bed, watching TV, playing on his phone.
--- NOTE | 2020-06-11 12:47 | PM.IMPN ---
Progress Note: A&P Assessment and Plan (1) Exacerbation of ulcerative colitis: Code(s): K51.90 - Ulcerative colitis, unspecified, without complications Status: Acute Assessment and Plan: Seen by Gi continue IV steroids, IV levaquin and flagyl Dilaudid prn for pain, continue to treat for few more days then DC with possible surgery later. Pt is tolerating fluid and diet DC iv fluids (2) Anxiety: Code(s): F41.9 - Anxiety disorder, unspecified Status: Acute Assessment and Plan: Stable on buspar (3) History of pulmonary embolism: Code(s): Z86.711 - Personal history of pulmonary embolism Status: Acute Assessment and Plan: On subcutaneous heparin. (4) Elevated blood pressure reading: Code(s): R03.0 - Elevated blood-pressure reading, without diagnosis of hypertension Status: Acute Assessment and Plan: Chronic and stable Subjective Date/time seen: 06/11/20 12:47 Interval history: Patient history of UC with frequent flares, ongoing diarrhea and abdominal pains, Pt considering surgery, for now continue medical management with IV fluids and iv ABX. Seen by surgery and GI. Pt feeling better cf yesterday, still having some diarrhea and generalized abdominal pains. Hopeful DC in 1-2 days time Review of Systems Review of Systems: All systems reviewed & are unremarkable except as noted in HPI and below Exam Narrative: Exam Narrative: General:Middle aged man looks better today Neck: Supple. Respiratory: Lungs are clear to auscultation bilaterally. Cardiovascular: Tachycardic with S1-S2. Gastrointestinal: Abdomen is soft and nondistended. No rebound tenderness. Skin: Warm and dry. No rash or lesions on limited exam. Extremities: No cyanosis, clubbing, or edema. Radial and pedal pulses intact. Neurological: Alert. Cranial nerves 2-12 are grossly intact. No gross focal deficits to casual conversation. Psychiatric: Cooperative. Appropriate mood and affect. Objective Data Vital Signs Vital Signs: Vital Signs - 24 hr 06/10/20 14:00 06/10/20 20:00 06/11/20 04:24 Temperature 36.2 C L 36.2 C L 36.3 C L Pulse Rate 63 60 70 Respiratory Rate 18 20 18 Blood Pressure 110/51 L 138/77 141/96 H Pulse Oximetry 90 97 97 Intake/Output Intake/Output: Intake & Output 06/08/20 06/09/20 06/10/20 06/11/20 23:59 23:59 23:59 23:59 Intake Total 3810 3540 4870 1989 Output Total 1000 1000 1750 300 Balance 2810 2540 3120 1690 Meds/Results Medications: Active Medications Generic Name Dose Route Start Last Admin Trade Name Freq PRN Reason Stop Dose Admin Buspirone HCl 10 mg 06/06/20 09:00 06/11/20 08:49 Buspirone Hcl 10 Mg Tablet PO Not Given BID [facility] Dexamethasone Sodium Phosphate 4 mg 06/06/20 06:00 06/11/20 05:48 Dexamethasone Sod Phos Inj 4 Mg/Ml Vial IV PUSH 4 mg Q12H DONALD Administration Escitalopram Oxalate 10 mg 06/06/20 09:00 06/11/20 08:49 Escitalopram Oxalate 10 Mg Tablet PO 10 mg DAILY DONALD Administration Heparin Sodium (Porcine) 5,000 units 06/06/20 09:00 06/11/20 08:50 Heparin Sodium 5,000 Units/Ml Vial SUB-Q 5,000 units Q12HR DONALD Administration Hydromorphone HCl 1 mg 06/10/20 12:22 06/11/20 11:04 Hydromorphone Hcl Inj (*Crx) 1 Mg/Ml Syr IV PUSH 1 mg Q2H PRN Administration Pain Rated 7-10 Sodium Chloride 1,000 mls @ 100 mls/hr 06/05/20 17:50 06/11/20 03:39 Normal Saline Iv IV CONT 100 mls/hr .Q10H DONALD Administration Levofloxacin/Dextrose 500 mg in 100 mls @ 100 mls/hr 06/07/20 09:00 06/11/20 09:46 Levaquin 500 Mg/D5w 100 Ml IVPB Infused Q24H DONALD Infusion Metronidazole 500 mg in 100 mls @ 100 mls/hr 06/07/20 12:00 06/11/20 11:04 Flagyl 500 Mg/Iso Soln 100 Ml IVPB 100 mls/hr Q8H DONALD Administration Loperamide HCl 2 mg 06/09/20 19:11 06/09/20 21:11 Loperamide Hcl 2 Mg Capsule PO 2 mg PRN PRN Administration Diarrhea Lorazepam 0
[2020-06-11 13:37] VITALS: BP 131/74; PULSE 54; RESP 18; TEMP 36.1; O2SAT 95
--- NOTE | 2020-06-11 16:35 | WPDGIPROGNO ---
Subjective Date/time seen: ZACK Dexter for Dr Tesfaye 11 Jun 2020 Feeling better. Less pain. No N/V. Reports stools are starting to form. No hematochezia or melena. Tolerating diet. VSS soft/NT Hct 39.7 LFT's normal ASSESSMENT/PLAN: A. Abdominal pain, nausea, vomiting, diarrhea, and weight loss, - likely due to flare of ulcerative colitis: - Continue Decadron 4 mg IV q.12 - Continue Levaquin and Flagyl; this will take a few days to have significant effect - Continue supportive care - Advance diet slowly - Try Imodium - Will need transition to PO steroids and antibiotics at discharge - Consider colectomy outpatient with tertiary center Exam Const: General: cooperative, healthy appearing, comfortable, no acute distress and awake Orientation/consciousness: patient oriented x3 Resp: Effort & Inspection: normal respiratory effort Auscultation: clear to auscultation bilaterally Cardio: Rate: regular rate Rhythm: regular rhythm Heart sounds: S1 normal heart sound present, S2 normal heart sound present, no gallops, no murmurs and no rubs GI: Inspection: normal to inspection GI Palp: No abdominal tenderness, Yes Soft to palpation and No Hepatosplenomegaly present Auscultation: normal bowel sounds Rectal Exam: deferred Skin: General skin exam: normal color Neuro: General: patient oriented x3 Objective Data Vital Signs Vital Signs: Vital Signs - 24 hr 06/10/20 20:00 06/11/20 04:24 06/11/20 13:37 Temperature 36.2 C L 36.3 C L 36.1 C L Pulse Rate 60 70 54 L Respiratory Rate 20 18 18 Blood Pressure 138/77 141/96 H 131/74 Pulse Oximetry 97 97 95 Intake/Output Intake/Output: Intake & Output 06/08/20 06/09/20 06/10/20 06/11/20 23:59 23:59 23:59 23:59 Intake Total 3810 3540 4870 2090 Output Total 1000 1000 1750 300 Balance 2810 2540 3120 1790 Meds/Results Medications: Active Medications Generic Name Dose Route Start Last Admin Trade Name Freq PRN Reason Stop Dose Admin Buspirone HCl 10 mg 06/06/20 09:00 06/11/20 08:49 Buspirone Hcl 10 Mg Tablet PO Not Given BID [facility] Dexamethasone Sodium Phosphate 4 mg 06/06/20 06:00 06/11/20 05:48 Dexamethasone Sod Phos Inj 4 Mg/Ml Vial IV PUSH 4 mg Q12H DONALD Administration Escitalopram Oxalate 10 mg 06/06/20 09:00 06/11/20 08:49 Escitalopram Oxalate 10 Mg Tablet PO 10 mg DAILY DONALD Administration Heparin Sodium (Porcine) 5,000 units 06/06/20 09:00 06/11/20 08:50 Heparin Sodium 5,000 Units/Ml Vial SUB-Q 5,000 units Q12HR DONALD Administration Hydromorphone HCl 1 mg 06/10/20 12:22 06/11/20 15:14 Hydromorphone Hcl Inj (*Crx) 1 Mg/Ml Syr IV PUSH 1 mg Q2H PRN Administration Pain Rated 7-10 Levofloxacin/Dextrose 500 mg in 100 mls @ 100 mls/hr 06/07/20 09:00 06/11/20 09:46 Levaquin 500 Mg/D5w 100 Ml IVPB Infused Q24H DONALD Infusion Metronidazole 500 mg in 100 mls @ 100 mls/hr 06/07/20 12:00 06/11/20 12:04 Flagyl 500 Mg/Iso Soln 100 Ml IVPB Infused Q8H DONALD Infusion Loperamide HCl 2 mg 06/09/20 19:11 06/09/20 21:11 Loperamide Hcl 2 Mg Capsule PO 2 mg PRN PRN Administration Diarrhea Lorazepam 0.5 mg 06/05/20 23:04 06/11/20 04:48 Lorazepam Inj (*Crx) 2 Mg/Ml Vial IV PUSH 0.5 mg BID PRN Administration Anxiety Mesalamine 400 mg 06/06/20 09:00 06/11/20 13:04 Mesalamine 400 Mg Delayed Release Capsule PO 400 mg TID DONALD Administration Ondansetron HCl 4 mg 06/05/20 21:30 06/11/20 15:14 Ondansetron Inj 4 Mg/2 Ml Vial IV PUSH 4 mg Q4H PRN Administration Nausea And Vomiting Pantoprazole Sodium 40 mg 06/06/20 09:00 06/11/20 08:49 Pantoprazole Sodium Iv 40 Mg Vial IV PUSH 40 mg QAM DONALD Administration Zolpidem Tartrate 10 mg 06/05/20 21:32 Zolpidem Tartrate (*Crx) 5 Mg Tablet PO HS PRN Insomnia Zolpidem Tartrate 10 mg 06/05/20 23:20 06/11/20 00:15 Zolpidem Tartrate (*Crx) 5 Mg Tablet PO 10 mg HS DONALD Adm
[2020-06-11 21:42] VITALS: BP 129/79; PULSE 60; RESP 20; TEMP 36.1; O2SAT 98
[2020-06-12] MEDS: HYDROmorphone HCL INJ (*CRX) 1 MG/ML SYR IV PUSH ×6 (00:05→21:25)
[2020-06-12] MEDS: ZOLPIDEM TARTRATE (*CRX) 5 MG TABLET 10 MG PO ×2 (00:06→21:25)
[2020-06-12] MEDS: ONDANSETRON INJ 4 MG/2 ML VIAL IV PUSH ×4 (00:06→20:06)
[2020-06-12] MEDS: metroNIDAZOLE 500 MG/ISO 100ML 500 MG/100 ML BAG 100 MG IVPB ×2 (04:11→11:20)
[2020-06-12] MEDS: LORazepam INJ (*CRX) 2 MG/ML VIAL 0.5 MG IV PUSH ×2 (04:21→16:51)
[2020-06-12 05:53] LABS: Hematocrit 39.1 % (42.0-52.0); Hemoglobin 12.5 g/dL (14.0-18.0); Mean Corpuscular Hemoglobin 29.2 pg (26-34); Mean Corpuscular Volume 91.4 fl (80-100); Mean Platelet Volume 9.1 fl (7.4-10.4); Platelet Count Result 368 k/mm3 (150-375); Red Blood Count 4.28 M/mm3 (4.6-6.20); Red Cell Distribution Width 13.7 % (11.5-14.5); White Blood Count 8.5 K/mm3 (4.5-10.0)
[2020-06-12 06:00] VITALS: BP 113/87; PULSE 99; RESP 16; TEMP 36.7; O2SAT 99
[2020-06-12 06:06] LABS: Anion Gap 2 mmol/L (8-16); Blood Urea Nitrogen 13 mg/dL (9-20); Carbon Dioxide 35 mmol/L (22-30); Chloride 97 mmol/L (98-107); Estimated CRCL calculation 164 ml/min; Estimated Glomerular Filt Rate > 60; Glucose 125 mg/dL (75-110); Potassium 3.9 mmol/L (3.4-5.0); Sodium 134 mmol/L (137-145)
[2020-06-12] MEDS: DEXAMETHASONE SOD PHOS INJ 4 MG/ML VIAL IV PUSH (06:16)
[2020-06-12] MEDS: levoFLOXacin 500 MG/D5W 100 ML 500 MG/100 ML BAG 100 MG IVPB (09:05)
[2020-06-12 09:07] VITALS: PULSE 94; RESP 16; O2SAT 99
[2020-06-12] MEDS: PANTOPRAZOLE SODIUM IV 40 MG VIAL IV PUSH (09:07)
[2020-06-12] MEDS: MESALAMINE 400 MG DELAYED RELEASE CAPSULE PO ×3 (09:07→16:52)
[2020-06-12] MEDS: ESCITALOPRAM OXALATE 10 MG TABLET PO (09:07)
[2020-06-12] MEDS: HEPARIN SODIUM 5,000 UNITS/ML VIAL 5000 UNITS SUB-Q ×2 (09:07→20:03)
--- NOTE | 2020-06-12 10:20 | PM.IMPN ---
Progress Note: A&P Assessment and Plan (1) Exacerbation of ulcerative colitis: Code(s): K51.90 - Ulcerative colitis, unspecified, without complications Status: Acute Assessment and Plan: Seen by Gi continue IV steroids, IV levaquin and flagyl Dilaudid prn for pain, continue to treat for few more days then DC with possible surgery later. Decrease IV steroids today. (2) Anxiety: Code(s): F41.9 - Anxiety disorder, unspecified Status: Acute Assessment and Plan: Stable on buspar (3) History of pulmonary embolism: Code(s): Z86.711 - Personal history of pulmonary embolism Status: Acute Assessment and Plan: On subcutaneous heparin. (4) Elevated blood pressure reading: Code(s): R03.0 - Elevated blood-pressure reading, without diagnosis of hypertension Status: Acute Assessment and Plan: Chronic and stable Subjective Date/time seen: 06/12/20 10:20 Interval history: Patient history of UC with frequent flares, ongoing diarrhea and abdominal pains, Pt considering surgery, for now continue medical management with IV steroids and iv ABX. Seen by surgery and GI. Pt feeling better cf yesterday, still having some diarrhea and generalized abdominal pains. Hopeful DC in 1-2 days time Review of Systems Review of Systems: All systems reviewed & are unremarkable except as noted in HPI and below Exam Narrative: Exam Narrative: General:Middle aged man looks better today Neck: Supple. Respiratory: Lungs are clear to auscultation bilaterally. Cardiovascular: Tachycardic with S1-S2. Gastrointestinal: Abdomen is soft and nondistended. No rebound tenderness. Skin: Warm and dry. No rash or lesions on limited exam. Extremities: No cyanosis, clubbing, or edema. Radial and pedal pulses intact. Neurological: Alert. Cranial nerves 2-12 are grossly intact. No gross focal deficits to casual conversation. Psychiatric: Cooperative. Appropriate mood and affect. Objective Data Vital Signs Vital Signs: Vital Signs - 24 hr 06/11/20 13:37 06/11/20 21:42 06/12/20 06:00 Temperature 36.1 C L 36.1 C L 36.7 C Pulse Rate 54 L 60 99 Respiratory Rate 18 20 16 Blood Pressure 131/74 129/79 113/87 Pulse Oximetry 95 98 99 Intake/Output Intake/Output: Intake & Output 12/2806/10/20 06/11/20 06/12/20 23:59 23:59 23:59 23:59 Intake Total 3540 4870 3120 400 Output Total 1000 1750 1500 500 Balance 2540 3120 1620 -100 Meds/Results Medications: Active Medications Generic Name Dose Route Start Last Admin Trade Name Freq PRN Reason Stop Dose Admin Buspirone HCl 10 mg 06/06/20 09:00 06/12/20 09:06 Buspirone Hcl 10 Mg Tablet PO Not Given BID DONALD Dexamethasone Sodium Phosphate 4 mg 06/06/20 06:00 06/12/20 06:16 Dexamethasone Sod Phos Inj 4 Mg/Ml Vial IV PUSH 4 mg Q12H DONALD Administration Escitalopram Oxalate 10 mg 06/06/20 09:00 06/12/20 09:07 Escitalopram Oxalate 10 Mg Tablet PO 10 mg DAILY DONALD Administration Heparin Sodium (Porcine) 5,000 units 06/06/20 09:00 06/12/20 09:07 Heparin Sodium 5,000 Units/Ml Vial SUB-Q 5,000 units Q12HR DONALD Administration Hydromorphone HCl 1 mg 06/10/20 12:22 06/12/20 09:04 Hydromorphone Hcl Inj (*Crx) 1 Mg/Ml Syr IV PUSH 1 mg Q2H PRN Administration Pain Rated 7-10 Levofloxacin/Dextrose 500 mg in 100 mls @ 100 mls/hr 06/07/20 09:00 06/12/20 10:07 Levaquin 500 Mg/D5w 100 Ml IVPB Infused Q24H DONALD Infusion Metronidazole 500 mg in 100 mls @ 100 mls/hr 06/07/20 12:00 06/12/20 05:15 Flagyl 500 Mg/Iso Soln 100 Ml IVPB Infused Q8H DONALD Infusion Loperamide HCl 2 mg 06/09/20 19:11 06/09/20 21:11 Loperamide Hcl 2 Mg Capsule PO 2 mg PRN PRN Administration Diarrhea Lorazepam 0.5 mg 06/05/20 23:04 06/12/20 04:21 Lorazepam Inj (*Crx) 2 Mg/Ml Vial IV PUSH 0.5 mg BID PRN Administration Anxiety Mesalamine 400 mg 06/06/20 09:00 12
[2020-06-12] MEDS: HYDROcodone/acetaminophen (*CRX) 5-325 MG TABLET 1 TAB PO ×2 (11:32→20:02)
[2020-06-12 14:00] VITALS: BP 129/71; PULSE 74; RESP 16; TEMP 36.4; O2SAT 98
--- NOTE | 2020-06-12 15:47 | WPDGIPROGNO ---
Progress Note: A&P Additional Plan GI Brien 12 Jun 2020 Looks MUCH better. Less pain. Stool frequent but forming up VSS soft/NT Pertinent Labs: Hct 40 Assessment and Plan: Abdominal pain, nausea, vomiting, diarrhea, and weight loss: - likely due to flare of Ulcerative Colitis: - Continue Decadron now at 2 mg IV q.12 - Continue Levaquin and Flagyl; consider change to po tomorrow - Continue supportive care - Advance diet slowly - Using Imodium only qhs; told patient ot use ATC - Will need transition to PO steroids and antibiotics at discharge soon - Consider colectomy outpatient with tertiary center MARILEE Amezcua [phone] Subjective Date/time seen: 06/12/20 15:47 Objective Data Vital Signs Vital Signs: Vital Signs - 24 hr 06/11/20 21:42 06/12/20 06:00 06/12/20 09:07 Temperature 36.1 C L 36.7 C Pulse Rate 60 99 94 Respiratory Rate 20 16 16 Blood Pressure 129/79 113/87 Pulse Oximetry 98 99 99 Intake/Output Intake/Output: Intake & Output 06/09/20 06/10/20 06/11/20 06/12/20 23:59 23:59 23:59 23:59 Intake Total 3540 4870 3120 920 Output Total 1000 1750 1500 500 Balance 2540 3120 1620 420 Meds/Results Medications: Active Medications Generic Name Dose Route Start Last Admin Trade Name Freq PRN Reason Stop Dose Admin Hydrocodone Bitart/Acetaminophen 1 tab 06/12/20 10:47 06/12/20 11:32 Hydrocodone/Acetaminophen (*Crx) 5-325 Mg Tablet PO 1 tab Q6H PRN Administration Pain Rated 4-6 Buspirone HCl 10 mg 06/06/20 09:00 06/12/20 09:06 Buspirone Hcl 10 Mg Tablet PO Not Given BID DONALD Dexamethasone Sodium Phosphate 2 mg 06/12/20 18:00 Dexamethasone Sod Phos Inj 4 Mg/Ml Vial IV PUSH Q12H DONALD Escitalopram Oxalate 10 mg 06/06/20 09:00 06/12/20 09:07 Escitalopram Oxalate 10 Mg Tablet PO 10 mg DAILY DONALD Administration Heparin Sodium (Porcine) 5,000 units 06/06/20 09:00 06/12/20 09:07 Heparin Sodium 5,000 Units/Ml Vial SUB-Q 5,000 units Q12HR DONALD Administration Hydromorphone HCl 1 mg 06/12/20 10:47 06/12/20 15:31 Hydromorphone Hcl Inj (*Crx) 1 Mg/Ml Syr IV PUSH 1 mg Q6-8H PRN Administration Pain Rated 7-10 Levofloxacin/Dextrose 500 mg in 100 mls @ 100 mls/hr 06/07/20 09:00 06/12/20 10:07 Levaquin 500 Mg/D5w 100 Ml IVPB Infused Q24H DONALD Infusion Metronidazole 500 mg in 100 mls @ 100 mls/hr 06/07/20 12:00 06/12/20 12:17 Flagyl 500 Mg/Iso Soln 100 Ml IVPB Infused Q8H DONALD Infusion Loperamide HCl 2 mg 06/09/20 19:11 06/09/20 21:11 Loperamide Hcl 2 Mg Capsule PO 2 mg PRN PRN Administration Diarrhea Lorazepam 0.5 mg 06/05/20 23:04 06/12/20 04:21 Lorazepam Inj (*Crx) 2 Mg/Ml Vial IV PUSH 0.5 mg BID PRN Administration Anxiety Mesalamine 400 mg 06/06/20 09:00 06/12/20 12:24 Mesalamine 400 Mg Delayed Release Capsule PO 400 mg TID DONALD Administration Ondansetron HCl 4 mg 06/05/20 21:30 06/12/20 15:31 Ondansetron Inj 4 Mg/2 Ml Vial IV PUSH 4 mg Q4H PRN Administration Nausea And Vomiting Zolpidem Tartrate 10 mg 06/05/20 21:32 Zolpidem Tartrate (*Crx) 5 Mg Tablet PO HS PRN Insomnia Radiology Results: ITS Impressions Abdomen X-Ray 06/05/20 16:35 IMPRESSION: 1. No acute abdominal abnormality. Labs Labs: Laboratory Results - last 24 hr 06/12/20 06/12/20 05:39 05:39 WBC 8.5 RBC 4.28 L Hgb 12.5 L Hct 39.1 L MCV 91.4 MCH 29.2 MCHC 32.0 RDW 13.7 Plt Count 368 MPV 9.1 Sodium 134 L Potassium 3.9 Chloride 97 L Carbon Dioxide 35 H Anion Gap 2 L BUN 13 Creatinine 0.60 L Estim Creat Clear Calc 164 Estimated GFR > 60 Glucose 125 H Calcium 8.0 L
[2020-06-12] MEDS: LOPERAMIDE HCL 2 MG CAPSULE PO (16:51)
[2020-06-12] MEDS: busPIRone HCL 10 MG TABLET PO (16:52)
[2020-06-12] MEDS: DEXAMETHASONE SOD PHOS INJ 4 MG/ML VIAL 2 MG IV PUSH (17:36)
[2020-06-12 20:00] VITALS: PULSE 74; RESP 16; O2SAT 98
[2020-06-12] MEDS: metroNIDAZOLE 500 MG/ISO 100ML 500 MG/100 ML BAG 200 MG IVPB (20:02)
[2020-06-12 22:00] VITALS: BP 130/82; PULSE 57; RESP 16; TEMP 36.2; O2SAT 98
[2020-06-13] MEDS: metroNIDAZOLE 500 MG/ISO 100ML 500 MG/100 ML BAG 150 MG IVPB (03:21)
[2020-06-13] MEDS: HYDROmorphone HCL INJ (*CRX) 1 MG/ML SYR IV PUSH ×4 (03:21→21:25)
[2020-06-13] MEDS: ONDANSETRON INJ 4 MG/2 ML VIAL IV PUSH ×4 (03:21→21:25)
[2020-06-13 05:40] VITALS: BP 140/85; PULSE 66; RESP 16; TEMP 36.2; O2SAT 98
[2020-06-13] MEDS: DEXAMETHASONE SOD PHOS INJ 4 MG/ML VIAL 2 MG IV PUSH ×2 (06:08→16:47)
[2020-06-13] MEDS: HYDROcodone/acetaminophen (*CRX) 5-325 MG TABLET 1 TAB PO ×3 (06:09→18:00)
[2020-06-13] MEDS: LORazepam INJ (*CRX) 2 MG/ML VIAL 0.5 MG IV PUSH ×2 (07:42→19:51)
[2020-06-13] MEDS: levoFLOXacin 500 MG/D5W 100 ML 500 MG/100 ML BAG 100 MG IVPB (09:02)
[2020-06-13] MEDS: busPIRone HCL 10 MG TABLET PO ×2 (09:51→16:46)
[2020-06-13] MEDS: ESCITALOPRAM OXALATE 10 MG TABLET PO (09:51)
[2020-06-13] MEDS: MESALAMINE 400 MG DELAYED RELEASE CAPSULE PO ×3 (09:51→16:46)
[2020-06-13] MEDS: HEPARIN SODIUM 5,000 UNITS/ML VIAL 5000 UNITS SUB-Q ×2 (09:53→21:25)
--- NOTE | 2020-06-13 10:40 | WPDGIPROGNO ---
Progress Note: A&P Additional Plan GI Brien 13 Jun 2020 Looks MUCH better. Mild pain. Stool loose but frequency better on Imodium QID VSS soft/NT Pertinent Labs: Hct 40->39 Assessment and Plan: Abdominal pain, nausea, vomiting, diarrhea, and weight loss: - Likely due to flare of Ulcerative Colitis: - Continue Decadron now at 4 mg po q.12 - Continue Levaquin and Flagyl; change to po today and finish 14 day course - Continue mesalamine - Continue supportive care - Continue Imodium 1 tab Achs - Consider colectomy outpatient with tertiary center when colitis is stable GI Discharge meds: Decadron 4 mg po BID Mesalamine 400 mg po TID Levaquin 500 mg po daily finish 14 day course Flagyl 500 mg po BID finish 14 day course Imodium 1 tab po achs Case discussed with Dr. Turner. Plan for discharge tomorrow. Patient will follow-up with my office in 2 weeks. Thanks, [facility] [phone] Subjective Date/time seen: 06/13/20 10:40 Objective Data Vital Signs Vital Signs: Vital Signs - 24 hr 06/12/20 14:00 06/12/20 20:00 06/12/20 22:00 Temperature 36.4 C 36.2 C L Pulse Rate 74 74 57 L Respiratory Rate 16 16 16 Blood Pressure 129/71 130/82 Pulse Oximetry 98 98 98 06/13/20 05:40 Temperature 36.2 C L Pulse Rate 66 Respiratory Rate 16 Blood Pressure 140/85 Pulse Oximetry 98 Intake/Output Intake/Output: Intake & Output 06/10/20 06/11/20 06/12/20 06/13/20 23:59 23:59 23:59 23:59 Intake Total 4870 3120 1380 900 Output Total 1750 1500 800 200 Balance 3120 1620 580 700 Meds/Results Medications: Active Medications Generic Name Dose Route Start Last Admin Trade Name Freq PRN Reason Stop Dose Admin Hydrocodone Bitart/Acetaminophen 1 tab 06/12/20 10:47 06/13/20 06:09 Hydrocodone/Acetaminophen (*Crx) 5-325 Mg Tablet PO 1 tab Q6H PRN Administration Pain Rated 4-6 Buspirone HCl 10 mg 06/06/20 09:00 06/13/20 09:51 Buspirone Hcl 10 Mg Tablet PO 10 mg BID DONALD Administration Dexamethasone Sodium Phosphate 1 mg 06/13/20 08:56 Dexamethasone Sod Phos Inj 4 Mg/Ml Vial IV PUSH Q12H DONALD Escitalopram Oxalate 10 mg 06/06/20 09:00 06/13/20 09:51 Escitalopram Oxalate 10 Mg Tablet PO 10 mg DAILY DONALD Administration Heparin Sodium (Porcine) 5,000 units 06/06/20 09:00 06/13/20 09:53 Heparin Sodium 5,000 Units/Ml Vial SUB-Q 5,000 units Q12HR DONALD Administration Hydromorphone HCl 1 mg 06/12/20 10:47 06/13/20 08:58 Hydromorphone Hcl Inj (*Crx) 1 Mg/Ml Syr IV PUSH 1 mg Q6-8H PRN Administration Pain Rated 7-10 Levofloxacin/Dextrose 500 mg in 100 mls @ 100 mls/hr 06/07/20 09:00 06/13/20 09:02 Levaquin 500 Mg/D5w 100 Ml IVPB 100 mls/hr Q24H DONALD Administration Metronidazole 500 mg in 100 mls @ 100 mls/hr 06/07/20 12:00 06/13/20 04:09 Flagyl 500 Mg/Iso Soln 100 Ml IVPB Infused Q8H DONALD Infusion Loperamide HCl 2 mg 06/09/20 19:11 06/12/20 16:51 Loperamide Hcl 2 Mg Capsule PO 2 mg PRN PRN Administration Diarrhea Lorazepam 0.5 mg 06/05/20 23:04 06/13/20 07:42 Lorazepam Inj (*Crx) 2 Mg/Ml Vial IV PUSH 0.5 mg BID PRN Administration Anxiety Mesalamine 400 mg 06/06/20 09:00 06/13/20 09:51 Mesalamine 400 Mg Delayed Release Capsule PO 400 mg TID DONALD Administration Ondansetron HCl 4 mg 06/05/20 21:30 06/13/20 08:55 Ondansetron Inj 4 Mg/2 Ml Vial IV PUSH 4 mg Q4H PRN Administration Nausea And Vomiting Zolpidem Tartrate 10 mg 06/05/20 21:32 06/12/20 21:25 Zolpidem Tartrate (*Crx) 5 Mg Tablet PO 10 mg HS PRN Administration Insomnia Radiology Results: ITS Impressions Abdomen X-Ray 06/05/20 16:35 IMPRESSION: 1. No acute abdominal abnormality.
[2020-06-13] MEDS: LOPERAMIDE HCL 2 MG CAPSULE PO ×3 (12:11→21:24)
[2020-06-13] MEDS: metroNIDAZOLE 500 MG/ISO 100ML 500 MG/100 ML BAG 100 MG IVPB (12:13)
--- NOTE | 2020-06-13 12:48 | PM.IMPN ---
Progress Note: A&P Assessment and Plan (1) Exacerbation of ulcerative colitis: Code(s): K51.90 - Ulcerative colitis, unspecified, without complications Status: Acute Assessment and Plan: Seen by Gi continue recommendations. DC tomorrow pt is doing better (2) Anxiety: Code(s): F41.9 - Anxiety disorder, unspecified Status: Acute Assessment and Plan: Stable on buspar (3) History of pulmonary embolism: Code(s): Z86.711 - Personal history of pulmonary embolism Status: Acute Assessment and Plan: On subcutaneous heparin. (4) Elevated blood pressure reading: Code(s): R03.0 - Elevated blood-pressure reading, without diagnosis of hypertension Status: Acute Assessment and Plan: Chronic and stable Subjective Date/time seen: 06/13/20 12:48 Interval history: Patient history of UC with frequent flares, ongoing diarrhea and abdominal pains, Pt considering surgery, for now continue medical management with IV steroids and iv ABX. Seen by surgery and GI. Pt feeling better cf yesterday, tolerating a diet. Hopeful DC tomorrow. Review of Systems Review of Systems: All systems reviewed & are unremarkable except as noted in HPI and below Exam Narrative: Exam Narrative: General:Middle aged man looks better today Neck: Supple. Respiratory: Lungs are clear to auscultation bilaterally. Cardiovascular: RRR S1-S2. Gastrointestinal: Abdomen is soft and nondistended. No rebound tenderness. Skin: Warm and dry. No rash or lesions on limited exam. Extremities: No cyanosis, clubbing, or edema. Radial and pedal pulses intact. Neurological: Alert. Cranial nerves 2-12 are grossly intact. No gross focal deficits to casual conversation. Psychiatric: Cooperative. Appropriate mood and affect. Objective Data Vital Signs Vital Signs: Vital Signs - 24 hr 06/12/20 14:00 06/12/20 20:00 06/12/20 22:00 Temperature 36.4 C 36.2 C L Pulse Rate 74 74 57 L Respiratory Rate 16 16 16 Blood Pressure 129/71 130/82 Pulse Oximetry 98 98 98 06/13/20 05:40 Temperature 36.2 C L Pulse Rate 66 Respiratory Rate 16 Blood Pressure 140/85 Pulse Oximetry 98 Intake/Output Intake/Output: Intake & Output 12/29/20 12/30/20 12/31/20 01/01/21 23:59 23:59 23:59 23:59 Intake Total 4870 3120 1380 1000 Output Total 1750 1500 800 200 Balance 3120 1620 580 800 Meds/Results Medications: Active Medications Generic Name Dose Route Start Last Admin Trade Name Freq PRN Reason Stop Dose Admin Hydrocodone Bitart/Acetaminophen 1 tab 06/12/20 10:47 06/13/20 12:12 Hydrocodone/Acetaminophen (*Crx) 5-325 Mg Tablet PO 1 tab Q6H PRN Administration Pain Rated 4-6 Buspirone HCl 10 mg 06/06/20 09:00 06/13/20 09:51 Buspirone Hcl 10 Mg Tablet PO 10 mg BID DONALD Administration Dexamethasone Sodium Phosphate 1 mg 06/13/20 08:56 06/13/20 11:18 Dexamethasone Sod Phos Inj 4 Mg/Ml Vial IV PUSH Not Given Q12H DONALD Escitalopram Oxalate 10 mg 06/06/20 09:00 06/13/20 09:51 Escitalopram Oxalate 10 Mg Tablet PO 10 mg DAILY DONALD Administration Heparin Sodium (Porcine) 5,000 units 06/06/20 09:00 06/13/20 09:53 Heparin Sodium 5,000 Units/Ml Vial SUB-Q 5,000 units Q12HR DONALD Administration Hydromorphone HCl 1 mg 06/12/20 10:47 06/13/20 08:58 Hydromorphone Hcl Inj (*Crx) 1 Mg/Ml Syr IV PUSH 1 mg Q6-8H PRN Administration Pain Rated 7-10 Levofloxacin/Dextrose 500 mg in 100 mls @ 100 mls/hr 06/07/20 09:00 06/13/20 10:00 Levaquin 500 Mg/D5w 100 Ml IVPB Infused Q24H DONALD Infusion Metronidazole 500 mg in 100 mls @ 100 mls/hr 06/07/20 12:00 06/13/20 12:13 Flagyl 500 Mg/Iso Soln 100 Ml IVPB 100 mls/hr Q8H DONALD Administration Loperamide HCl 2 mg 06/09/20 19:11 06/13/20 12:11 Loperamide Hcl 2 Mg Capsule PO 2 mg PRN PRN Administration Diarrhea Lorazepam 0.5 mg 06/05/20 23:04 06/13/20 07:42 Loraz
[2020-06-13 14:00] VITALS: BP 141/72; PULSE 63; RESP 18; TEMP 36.5; O2SAT 98
[2020-06-13] MEDS: metroNIDAZOLE 250 MG TABLET 500 MG PO (16:46)
[2020-06-13] MEDS: ZOLPIDEM TARTRATE (*CRX) 5 MG TABLET 10 MG PO (21:24)
[2020-06-13 22:00] VITALS: BP 139/83; PULSE 62; RESP 20; TEMP 36.3; O2SAT 98
[2020-06-14] MEDS: HYDROcodone/acetaminophen (*CRX) 5-325 MG TABLET 1 TAB PO ×3 (00:42→12:47)
[2020-06-14] MEDS: ONDANSETRON INJ 4 MG/2 ML VIAL IV PUSH ×2 (03:07→09:19)
[2020-06-14] MEDS: HYDROmorphone HCL INJ (*CRX) 1 MG/ML SYR IV PUSH ×2 (03:11→09:18)
[2020-06-14 06:00] VITALS: BP 142/82; PULSE 60; RESP 20; TEMP 36.8; O2SAT 98
[2020-06-14] MEDS: LOPERAMIDE HCL 2 MG CAPSULE PO ×2 (06:36→11:30)
[2020-06-14] MEDS: LORazepam INJ (*CRX) 2 MG/ML VIAL 0.5 MG IV PUSH (06:39)
--- NOTE | 2020-06-14 09:15 | PC.NURSE ---
Patient requesting dose of dilaudid this morning, stating his pain is at 9/10. Night RN just administered [place] at 0630. Instructed patient that [place] was just administered and typically the day of discharge, patients shouldn't be receiving Dilaudid prior to going home. I will check with Dr. Turner in regards to administering this with the plan being to discharge today. Per Dr. Turner, patient may still have dose of dilaudid this morning. Patient very agitated when I discussed discharge plan for today. He states he is regressing and his pain has now went to entire abdomen/epigastric region. Yue aware.
[2020-06-14] MEDS: busPIRone HCL 10 MG TABLET PO (09:20)
[2020-06-14] MEDS: ESCITALOPRAM OXALATE 10 MG TABLET PO (09:20)
[2020-06-14] MEDS: DEXAMETHASONE 4 MG TABLET PO (09:20)
[2020-06-14] MEDS: metroNIDAZOLE 250 MG TABLET 500 MG PO (09:20)
[2020-06-14] MEDS: MESALAMINE 400 MG DELAYED RELEASE CAPSULE PO ×2 (09:20→12:47)
[2020-06-14] MEDS: HEPARIN SODIUM 5,000 UNITS/ML VIAL 5000 UNITS SUB-Q (09:24)
--- NOTE | 2020-06-14 12:12 | WPDGIPROGNO ---
Progress Note: A&P Additional Plan GI Brien 14 Jun 2020 Looks MUCH better. Mild pain. Stool loose but frequency better on Imodium QID Had some N/V vs regurgitation this am VSS soft/NT Pertinent Labs: Hct 40->39 Assessment and Plan: Abdominal pain, nausea, vomiting, diarrhea, and weight loss: - Likely due to flare of Ulcerative Colitis: - Continue Decadron now at 4 mg po q.12 - Continue Levaquin and Flagyl; change to po today and finish 14 day course - Continue mesalamine - Continue supportive care - Continue Imodium 1 tab Achs - Consider colectomy outpatient with tertiary center when colitis is stable - Add Reglan 10 mg po Q 6 hours prn for N/V GI Discharge meds: Decadron 4 mg po BID Mesalamine 400 mg po TID Levaquin 500 mg po daily finish 14 day course Flagyl 500 mg po BID finish 14 day course Imodium 1 tab po achs Reglan 10 mg Q 6 hr prn [place] 5/325 1-2 tab po Q 6 hr prn Case discussed with Dr. Turner. OK with me for discharge. Follow-up with my office in 2 weeks. Thanks, [facility] [phone] Subjective Date/time seen: 06/14/20 12:12 Objective Data Vital Signs Vital Signs: Vital Signs - 24 hr 06/13/20 14:00 06/13/20 22:00 06/14/20 06:00 Temperature 36.5 C 36.3 C L 36.8 C Pulse Rate 63 62 60 Respiratory Rate 18 20 20 Blood Pressure 141/72 H 139/83 142/82 H Pulse Oximetry 98 98 98 Intake/Output Intake/Output: Intake & Output 06/11/20 06/12/20 06/13/20 06/14/20 23:59 23:59 23:59 23:59 Intake Total 3120 1380 3040 880 Output Total 1500 800 350 900 Balance 3969 673 6514 -20 Meds/Results Medications: Active Medications Generic Name Dose Route Start Last Admin Trade Name Freq PRN Reason Stop Dose Admin Hydrocodone Bitart/Acetaminophen 1 tab 06/12/20 10:47 06/14/20 06:36 Hydrocodone/Acetaminophen (*Crx) 5-325 Mg Tablet PO 1 tab Q6H PRN Administration Pain Rated 4-6 Buspirone HCl 10 mg 06/06/20 09:00 06/14/20 09:20 Buspirone Hcl 10 Mg Tablet PO 10 mg BID DONALD Administration Dexamethasone 4 mg 06/13/20 17:00 06/14/20 09:20 Dexamethasone 4 Mg Tablet PO 4 mg BID DONALD Administration Escitalopram Oxalate 10 mg 06/06/20 09:00 06/14/20 09:20 Escitalopram Oxalate 10 Mg Tablet PO 10 mg DAILY DONALD Administration Heparin Sodium (Porcine) 5,000 units 06/06/20 09:00 06/14/20 09:24 Heparin Sodium 5,000 Units/Ml Vial SUB-Q 5,000 units Q12HR DONALD Administration Hydromorphone HCl 1 mg 06/12/20 10:47 06/14/20 09:18 Hydromorphone Hcl Inj (*Crx) 1 Mg/Ml Syr IV PUSH 1 mg Q6-8H PRN Administration Pain Rated 7-10 Levofloxacin 500 mg 06/14/20 09:00 06/14/20 09:20 Levofloxacin Tab 500 Mg Tablet PO 500 mg DAILY DONALD Administration Loperamide HCl 2 mg 06/09/20 19:11 06/13/20 12:11 Loperamide Hcl 2 Mg Capsule PO 2 mg PRN PRN Administration Diarrhea Loperamide HCl 2 mg 06/13/20 16:30 06/14/20 11:30 Loperamide Hcl 2 Mg Capsule PO 2 mg ACHS DONALD Administration Lorazepam 0.5 mg 06/05/20 23:04 06/14/20 06:39 Lorazepam Inj (*Crx) 2 Mg/Ml Vial IV PUSH 0.5 mg BID PRN Administration Anxiety Mesalamine 400 mg 06/06/20 09:00 06/14/20 09:20 Mesalamine 400 Mg Delayed Release Capsule PO 400 mg TID DONALD Administration Metronidazole 500 mg 06/13/20 17:00 06/14/20 09:20 Metronidazole 250 Mg Tablet PO 500 mg BID DONALD Administration Ondansetron HCl 4 mg 06/05/20 21:30 06/14/20 09:19 Ondansetron Inj 4 Mg/2 Ml Vial IV PUSH 4 mg Q4H PRN Administration Nausea And Vomiting Zolpidem Tartrate 10 mg 06/05/20 21:32 06/13/20 21:24 Zolpidem Tartrate (*Crx) 5 Mg Tablet PO 10 mg HS PRN Administration Insomnia Radiology Results: ITS Impressions Abdomen X-Ray 06/05/20 16:35 IMPRESSION: 1. No acute abdominal abnormality.
--- NOTE | 2020-06-14 12:44 | PM.DDS ---
Discharge Sum: Prov Provider Primary care physician: Leonard Michael, Admitting provider: Scott Ann MD Consults: 06/05/20 17:49 Consult to Physician Routine Comment: Consulting Provider: Chuy Tesfaye Reason for consultation: UC flare Has provider been notified: Yes Discharge Sum: Summary Date and Time Date of admission: 06/05/20 17:47 Additional Data Attending physician: Scott Ann MD
[2020-06-14 14:00] VITALS: BP 136/77; PULSE 88; RESP 20; TEMP 36.6; O2SAT 97
--- NOTE | 2020-06-14 14:09 | PC.NURSE ---
Discharge medications put in by Dr. Turner and scripts were written by Dr. Tesfaye. Scripts had conflicting quantities. Called to Dr. Turner to notify her that Dr. Tesfaye has already written for these scripts. However, she states she has to leave her scripts in the discharge and cannot remove them since he already wrote for them.. Called and talked to the pharmacy to notify them that patient will have escripts as well as written scripts. Patient verbalized understanding.
--- NOTE | 2020-06-14 15:02 | PM.DS ---
DS: Admitting Diagnosis Admitting Diagnosis Admitting Diagnosis: Abdominal pain DS: Discharge Diagnosis Discharge Diagnosis (1) Anxiety: Code(s): F41.9 - Anxiety disorder, unspecified Status: Acute (2) Ulcerative colitis: Qualifiers: Digestive disease complication type: with rectal bleeding Ulcerative colitis location: ulcerative pancolitis Qualified Code(s): K51.011 - Ulcerative (chronic) pancolitis with rectal bleeding Code(s): K51.90 - Ulcerative colitis, unspecified, without complications Status: Acute (3) Exacerbation of ulcerative colitis: Code(s): K51.90 - Ulcerative colitis, unspecified, without complications Status: Acute Assessment and Plan: (1) Exacerbation of ulcerative colitis: Code(s): K51.90 - Ulcerative colitis, unspecified, without complications Status: Acute Assessment and Plan: Seen by Gi continue recommendations. DC tomorrow pt is doing better (2) Anxiety: Code(s): F41.9 - Anxiety disorder, unspecified Status: Acute Assessment and Plan: Stable on buspar (3) History of pulmonary embolism: Code(s): Z86.711 - Personal history of pulmonary embolism Status: Acute Assessment and Plan: On subcutaneous heparin. (4) Elevated blood pressure reading: Code(s): R03.0 - Elevated blood-pressure reading, without diagnosis of hypertension Status: Acute Assessment and Plan: Chronic and stable DS: Summary Hospital Course Hospital Course: Patient history of UC with frequent flares, ongoing diarrhea and abdominal pains, Pt considering surgery, for now continue medical management with IV steroids and iv ABX. Seen by surgery and GI. Pt feeling better cf yesterday, tolerating a diet. Hopeful DC today . Time Spent with Patient Time attestation: Total time spent providing and/or coordinating discharge services:40 minutes on the day of discharge Exam Narrative: Exam Narrative: General:Middle aged man looks better today Neck: Supple. Respiratory: Lungs are clear to auscultation bilaterally. Cardiovascular: RRR S1-S2. Gastrointestinal: Abdomen is soft and nondistended. No rebound tenderness. Skin: Warm and dry. No rash or lesions on limited exam. Extremities: No cyanosis, clubbing, or edema. Radial and pedal pulses intact. Neurological: Alert. Cranial nerves 2-12 are grossly intact. No gross focal deficits to casual conversation. Psychiatric: Cooperative. Appropriate mood and affect. Discharge Plan Discharge Attending physician on discharge: Mirna Turner Consulting providers: Chuy Tesfaye ; Dottie Pugh Discharging Clinician: Mirna Turner Anticipated Discharge Date/Time: 06/14/20 12:30 Patient Disposition: Home, Self-Care Activity: as tolerated Diet: low fiber Discharge Instructions: GI MEDICATIONS ON DISCHRAGE _ Decadron 4 mg po BID Mesalamine 400 mg po TID Levaquin 500 mg po daily finish 14 day course Flagyl 500 mg po BID finish 14 day course Imodium 1 tab po achs Reglan 10 mg Q 6 hr prn [place] 5/325 1-2 tab po Q 6 hr prn Call to schedule follow up appointment with Dr. Tesfaye for 2 weeks. Patient Instructions: Antibiotic Form Stand Alone Forms: General Discharge Information Follow-up/Referrals: Karol eSrna MD [Physician] - (in 1 months time ) Alec,Leonard Mancera MD [Primary Care Provider] - Chuy Tesfaye MD [Physician] - Call for Appointment (Call to schedule follow up appointment with Dr. Tesfaye in 2 weeks.) Discharge Medications: New loperamide 2 mg Capsule 2 mg PO ACHS Qty: 30 RF: 0 hydrocodone-acetaminophen 5-325 mg Tablet 1 tablet PO Q6H PRN (Reason: Pain Rated 4-6) Qty: 20 RF: 0 metronidazole 250 mg Tablet 500 mg PO BID Qty: 28 RF: 0 dexamethasone 4 mg Tablet 4 mg PO BID Qty: 20 RF: 0 levofloxacin 500 mg Tablet 500 mg PO DAILY Qty: 28 RF: 0 ondansetron 4 mg Tablet,Disi
== END 2020-06-14 14:12 | disposition home or self-care (01) | DRG 245 ==
LOC: ANHED 18:02 → ANH2MED 06-09 11:01
PROVIDERS: Internal Medicine; Physician Assistant; Admitting Provider Internal Medicine; Emergency Provider Emergency Medicine; PCP Family Medicine; Visit Provider Family Medicine
DX: K51.011 Ulcerative (chronic) pancolitis with rectal bleeding (principal); F41.9 Anxiety disorder, unspecified; Z86.711 Personal history of pulmonary embolism
CPT/HCPCS: 36415; 74019; 80048; 80053; 83690; 83735; 85025; 85027; 96365; 96375; 99285; A9270; C9113; J0131; J0780; J1100; J1170; J1644; J1956; J2060; J2270; J2405; J7030; J8540

== ENCOUNTER 2021-02-11 17:19 | Emergency (ER) | payer OTHER, SELFPAY ==
--- NOTE | ~2021-02-11 | CT_ITS ---
EXAMINATION: CT abdomen pelvis w con DATE: 02/11/2021 20:21 INDICATION: Nausea and vomiting. TECHNIQUE: Computed tomography (CT) of the abdomen and pelvis was performed with 100 mL Omnipaque 350 intravenous contrast. Automated exposure control and iterative reconstruction technique were employe d. The dose-length product was 582.73 mGy-cm. COMPARISON: CT abdomen and pelvis 05/29/2020 FINDINGS: The visualized portions of the lung bases demonstrate mild atelectasis on the right. No ple ural effusion. The heart size is normal. No pericardial effusion. The liver, gallbladder, spleen, vincent creas, adrenal glands, and kidneys are normal. There are surgical changes of the bowel. There is fat stranding in the presacral region, likely scarring. There is subcutaneous scarring in right anterior abdominal wall. There is a ventral hernia containing nonobstructed small bowel. There is a small slid ing hiatal hernia. There is mild lumbar spondylosis. IMPRESSION: 1. Ventral hernia containing nonobstructed small bowel. Reviewed, dictated and finalized at location A.
[2021-02-11 17:56] VITALS: BP 137/89; PULSE 84; RESP 14; TEMP 37.6; O2SAT 99
[2021-02-11 18:12] LABS: Basophils Percent Auto 0.5 % (0.2-1.2); Eosinophils Percent Auto 0.1 % (0-4.4); Immature Granulocyte Absolute 0.03 K/mm3 (0.00-0.031); Immature Granulocyte Percent A 0.3 % (0-0.5); Lymphocytes Absolute Auto 1.65 K/mm3 (0.9-3.2); Lymphocytes Percent Auto 18.7 % (18.3-44.2); Mean Corpuscular HGB Conc 30.8 g/dl (32-36); Mean Corpuscular Hemoglobin 24.1 pg (26-34); Mean Corpuscular Volume 78.3 fl (80-100); Mean Platelet Volume 8.9 fl (7.4-10.4); Monocytes Absolute Auto 0.7 K/mm3 (0.1-0.6); Monocytes Percent Auto 8.4 % (2.6-8.5); Neutrophils Absolute Auto 6.4 K/mm3 (1.3-6.7); Platelet Count Result 501 k/mm3 (150-375); Red Blood Count 4.98 M/mm3 (4.6-6.20); Red Cell Distribution Width 15.9 % (11.5-14.5); White Blood Count 8.8 K/mm3 (4.5-10.0)
[2021-02-11 18:22] LABS: Lactic Acid Reflex 0.9 mmol/L (0.7-2.1)
[2021-02-11 18:23] LABS: Alanine Aminotransferase 16 U/L (4-50); Albumin Level 4.4 g/dL (3.5-5.1); Alkaline Phosphatase 65 U/L (38-126); Anion Gap 7 mmol/L (8-16); Aspartate Amino Transferase 23 U/L (17-59); Bilirubin,Total 0.4 mg/dL (0.2-1.3); Blood Urea Nitrogen 13 mg/dL (9-20); Calcium 9.3 mg/dL (8.4-10.2); Carbon Dioxide 26 mmol/L (22-30); Chloride 104 mmol/L (98-107); Estimated CRCL calculation 139 ml/min; Estimated Glomerular Filt Rate > 60; Glucose 123 mg/dL (65-110); Potassium 4.1 mmol/L (3.4-5.0); Sodium 137 mmol/L (137-145)
[2021-02-11 21:49] VITALS: BP 142/76; PULSE 60; RESP 18; O2SAT 99
[2021-02-11] MEDS: ONDANSETRON INJ 4 MG/2 ML VIAL IV PUSH (22:37)
--- NOTE | 2021-02-11 23:05 | ED.ABDPAIN ---
HPI - Abdominal Pain General Chief Complaint: Abdominal Pain Stated Complaint: abd pain/hx ileostomy reversal/vomiting Time Seen by Provider: 02/11/21 22:00 History of Present Illness HPI narrative: Patient is a 40-year-old male who presents to the ER with reports of abdominal cramping and nausea. It occurred today as well as 2 days ago. Causes him to be lightheaded. No vomiting. Has history of ulcerative colitis and underwent colectomy. He had an ileostomy with takedown 4 months ago. He does notice a bulge around his umbilicus. No abdominal distention. Takes Gas-X regularly. Recently prescribed psyllium husk and has been taking it since 3 days ago when symptoms started. He did take a break from it today and still had some abdominal cramping with lightheadedness. Related Data Allergies Allergy/AdvReac Type Severity Reaction Status Date / Time No Known Allergies Allergy Verified 06/05/20 15:35 Review of Systems Review of Systems: All systems reviewed & are unremarkable except as noted in HPI and below Constitutional: Constitutional: Denies chills, Denies fever(s) and Denies weakness ENT: Denies nasal congestion and Denies sore throat Respiratory: Respiratory: Denies cough and Denies dyspnea Gastrointestinal: Gastrointestinal: Reports abdominal pain, Reports bloating, Denies diarrhea, Reports nausea and Denies vomiting PMF Past Medical History Medical History (Updated 02/11/21 @ 23:20 by Dominick Reno MD) Anxiety Deep venous thrombosis (~02/2019) History of pancreatitis History of pulmonary embolism Pulmonary embolism Pulmonary embolism (~02/2019) Ulcerative colitis Surgical History Surgical History History of knee surgery History right knee surgery/washout secondary to joint infection. Family History Family History Sibling Inflammatory bowel disease Mother Inflammatory bowel disease Sibling Ulcerative colitis Mother , Mother from an overdose at age 52. No problems noted. Father , Father was morbidly obese and from complications of an infection. No problems noted. Social History Social History Social History: Lives in [place] with his fiancee and children. He has not worked for several years due to his ulcerative colitis. He chews tobacco. Will drink heavily on the weekends. Occasional marijuana use. His dustin Kaplan is his surrogate decision maker and he wishes to be a full code. Smoking status: Never smoker Second hand tobacco smoke exposure: No Alcohol intake: never Drinks per week: 5 Substance use: never Substance use type: marijuana Other substance usage details: Occasionally smokes marijuana/drinks alcohol Last use: 05/17/2020 Gender identity (if verbalized by the patient): Male Spiritual care concerns: No Exam Narrative: GENERAL: Well-appearing, well-nourished, and in no acute distress. HEAD: Normocephalic, atraumatic. CHEST: Clear to auscultation. No respiratory distress. HEART: Regular rate and rhythm. Normal peripheral pulses. ABDOMEN: Soft, nontender, well-healed surgical scars, reducible ventral hernia superior to the umbilicus, nondistended, normal active bowel sounds. EXTREMITIES: Normal range of motion. No edema. SKIN: Warm, dry, no rash. NEURO: Alert and oriented x3. PSYCH: Normal mood and affect. Course Course Emergency Course: Discussed diagnosis and treatment plan. Patient verbalized understanding. May be a side effect of the psyllium husk he has been taking or he may have like an enteritis. Will prescribe Bentyl for home. Vital Signs Vital signs: Vital Signs Temperature 99.6 F 02/11/21 17:56 Pulse Rate 84 02/11/21 17:56 Respiratory Rate 14 02/11/21 17:56 Blood Pressure 137/89 02/11/21 17:56 Pu
== END 2021-02-11 23:25 | disposition home or self-care (01) ==
PROVIDERS: Family Medicine; Emergency Provider Emergency Medicine; PCP Family Medicine
DX: K43.9 Ventral hernia without obstruction or gangrene (principal); F41.9 Anxiety disorder, unspecified
CPT/HCPCS: 36415; 74177; 80053; 83605; 85025; 96374; 99284; J2405; Q9967

== ENCOUNTER 2022-01-16 11:02 | Outpatient (CLI) | payer BC, SELFPAY ==
[2022-01-16 11:40] LABS: Basophils Absolute Auto 0.1 K/mm3 (0.0-0.1); Basophils Percent Auto 0.8 % (0.2-1.2); Eosinophils Absolute Auto 0.3 K/mm3 (0-0.3); Eosinophils Percent Auto 3.2 % (0-4.4); Hematocrit 38.9 % (42.0-52.0); Immature Granulocyte Absolute 0.03 K/mm3 (0.00-0.031); Immature Granulocyte Percent A 0.4 % (0-0.5); Lymphocytes Absolute Auto 1.81 K/mm3 (0.9-3.2); Lymphocytes Percent Auto 21.4 % (18.3-44.2); Mean Corpuscular HGB Conc 30.8 g/dl (32-36); Mean Corpuscular Hemoglobin 26.9 pg (26-34); Mean Corpuscular Volume 87.2 fl (80-100); Mean Platelet Volume 9.5 fl (7.4-10.4); Monocytes Absolute Auto 0.8 K/mm3 (0.1-0.6); Monocytes Percent Auto 8.9 % (2.6-8.5); Neutrophils Absolute Auto 5.5 K/mm3 (1.3-6.7); Neutrophils Percent Auto 65.3 % (45.5-73.1); Platelet Count Result 403 k/mm3 (150-375); Red Blood Count 4.46 M/mm3 (4.6-6.20); Red Cell Distribution Width 17.1 % (11.5-14.5); White Blood Count 8.5 K/mm3 (4.5-10.0)
[2022-01-16 11:55] LABS: Alanine Aminotransferase 20 U/L (6-50); Albumin Level 4.3 g/dL (3.5-5.1); Alkaline Phosphatase 67 U/L (38-126); Anion Gap 10 mmol/L (8-16); Aspartate Amino Transferase 36 U/L (17-59); Bilirubin,Total 0.2 mg/dL (0.2-1.3); Blood Urea Nitrogen 22 mg/dL (9-20); Calcium 8.8 mg/dL (8.4-10.2); Carbon Dioxide 28 mmol/L (22-30); Chloride 103 mmol/L (98-107); Cholesterol 100 mg/dL (0-200); Estimated Glomerular Filt Rate > 60; Glucose 108 mg/dL (65-110); HDL Direct 28 mg/dL; Potassium 4.4 mmol/L (3.4-5.0); Sodium 141 mmol/L (137-145); Triglycerides 160 mg/dL (<150)
[2022-01-16 12:06] LABS: LDL Cholesterol Direct 43 mg/dL
[2022-01-16 12:26] LABS: Thyroid Stimulating Hormone 0.457 uIU/mL (0.465-4.680)
[2022-01-16 12:39] LABS: Free T4 Free Thyroxine 0.97 ng/mL (0.78-2.19)
== END 2022-01-16 11:03 | disposition home or self-care (01) ==
PROVIDERS: PCP Family Medicine; Visit Provider Family Medicine
DX: Z51.81 Encounter for therapeutic drug level monitoring (principal); F41.9 Anxiety disorder, unspecified; Z13.220 Encounter for screening for lipoid disorders
CPT/HCPCS: 36415; 80053; 80061; 84439; 84443; 85025

== ENCOUNTER 2022-10-30 08:54 | Emergency (ER) | payer BC, MEDICAID, SELFPAY ==
--- NOTE | ~2022-10-30 | CT_ITS ---
EXAMINATION: CT abdomen pelvis w con INDICATION: Abdominal pain TECHNIQUE: Computed tomographic images of the abdomen and pelvis were obtained after the administrati on of 100 cc of Omnipaque 350 intravenous contrast. The dose-length product (DLP) was 722.27 mGy-cm. Automated exposure control and iterative reconstruction technique were employed. COMPARISON: 02/11/2021 FINDINGS: Minimal dependent atelectasis is present in the lung bases. The heart size is normal. The l iver, spleen, pancreas, gallbladder, and adrenal glands are normal. The kidneys are unremarkable. The re is chronic, mild abdominal and pelvic lymphadenopathy, likely reactive. There are changes of total colectomy. There was liquid stool to the level of the rectum. No free intraperitoneal gas or evidenc e of bowel obstruction. There is chronic and stable presacral scarring and fluid collection. IMPRESSION: 1. No CT correlate for the patient's symptoms. Reviewed, dictated and finalized at location A.
[2022-10-30 09:02] VITALS: BP 175/118; PULSE 85; RESP 18; TEMP 36.9; O2SAT 100
[2022-10-30] MEDS: ONDANSETRON INJ 4 MG/2 ML VIAL IV PUSH (09:28)
[2022-10-30] MEDS: SODIUM CHLORIDE 0.9% IV 1,000 ML 999 ML IV CONT (09:28)
[2022-10-30] MEDS: FAMOTIDINE 20 MG/2 ML VIAL IV PUSH (09:28)
[2022-10-30] MEDS: DICYCLOMINE HCL INJ 20 MG/2 ML VIAL IM (09:28)
[2022-10-30] MEDS: HYDROmorphone HCL INJ (*CRX) 1 MG/ML SYR 0.5 MG IV PUSH (09:28)
[2022-10-30 09:31] LABS: Basophils Absolute Auto 0.1 K/mm3 (0.0-0.1); Basophils Percent Auto 0.8 % (0.2-1.2); Eosinophils Absolute Auto 0.3 K/mm3 (0-0.3); Hematocrit 43.6 % (42.0-52.0); Hemoglobin 13.4 g/dL (14.0-18.0); Immature Granulocyte Absolute 0.07 K/mm3 (0.00-0.031); Immature Granulocyte Percent A 0.5 % (0-0.5); Lymphocytes Absolute Auto 1.91 K/mm3 (0.9-3.2); Lymphocytes Percent Auto 14.7 % (18.3-44.2); Mean Corpuscular HGB Conc 30.7 g/dl (32-36); Mean Corpuscular Hemoglobin 24.6 pg (26-34); Mean Corpuscular Volume 80.1 fl (80-100); Mean Platelet Volume 9.3 fl (7.4-10.4); Monocytes Absolute Auto 1.2 K/mm3 (0.1-0.6); Monocytes Percent Auto 9.2 % (2.6-8.5); Neutrophils Absolute Auto 9.5 K/mm3 (1.3-6.7); Neutrophils Percent Auto 72.8 % (45.5-73.1); Platelet Count Result 456 k/mm3 (150-375); Red Blood Count 5.44 M/mm3 (4.6-6.20); Red Cell Distribution Width 19.1 % (11.5-14.5)
--- NOTE | 2022-10-30 09:36 | ED.GENADULT ---
HPI - General Adult General Chief complaint: Nausea/Vomiting/Diarrhea Stated complaint: nausea and vomiting x 3 days Time Seen by Provider: 10/30/22 09:07 History of Present Illness HPI narrative: Popeye Copeland is a 42 y/o male who presents with complaints of severe abdominal pain with nausea/vomiting. Significant other in the room and speaks for him since he is so uncomfortable. She states that he has a hx of ulcerative colitis and had his colon removed in 2020, he has had a colectomy with take down and J pouch. He reports that he typically will get episodes of nausea vomiting about once a month but it only lasts a day or so and he improves. This nausea/vomiting has been ongoing for 3 days. He complains of severe abdominal discomfort. His last BM was diarrhea which is his normal and it was today. Denies fever/chills/ Reports when he does vomit it appears to be undigested food. Related Data Allergies Allergy/AdvReac Type Severity Reaction Status Date / Time No Known Allergies Allergy Verified 10/30/22 08:54 Review of Systems Review of Systems: CONSTITUTIONAL: Denies fever, chills, or sweats. EYES: Denies visual changes, redness, or discharge. ENT: Denies rhinorrhea, congestion, sore throat, or otalgia. CARDIOVASCULAR: Denies chest pain, palpitations, or edema. RESPIRATORY: Denies cough or dyspnea. GASTROINTESTINAL: Reports abdominal pain, nausea, vomiting, and diarrhea. GENITOURINARY: Denies dysuria or hematuria. SKIN: Denies rash or itching. MUSCULOSKELETAL: Denies back pain, joint pain, or myalgia. NEUROLOGIC: Denies headache, numbness, dizziness, or weakness. PSYCHIATRIC: Denies anxiety or depression. [facility] Past Medical History Medical History Anxiety Deep venous thrombosis (~02/2019) History of pancreatitis History of pulmonary embolism Pulmonary embolism Pulmonary embolism (~02/2019) Ulcerative colitis Surgical History Surgical History History of knee surgery History right knee surgery/washout secondary to joint infection. Family History Family History Sibling Inflammatory bowel disease Mother Inflammatory bowel disease Sibling Ulcerative colitis Mother , Mother from an overdose at age 52. No problems noted. Father , Father was morbidly obese and from complications of an infection. No problems noted. Social History Social History Social History: Lives in [place] with his dustin and children. He has not worked for several years due to his ulcerative colitis. He chews tobacco. Will drink heavily on the weekends. Occasional marijuana use. His dustin Kaplan is his surrogate decision maker and he wishes to be a full code. Smoking status: Never smoker Second hand tobacco smoke exposure: No Alcohol intake: never Drinks per week: 5 Substance use: never Substance use type: marijuana Other substance usage details: Occasionally smokes marijuana/drinks alcohol Last use: 05/17/2020 Gender identity (if verbalized by the patient): Male Spiritual care concerns: No Exam Narrative: GENERAL: Well-appearing, well-nourished, and in no acute distress. HEAD: Normocephalic, atraumatic. EYES: PERRLA and EOMI. ENT: Nares clear, no rhinorrhea or epistaxis. Mucous membranes moist. Oropharynx without tonsillar hypertrophy exudate or other lesions. Bilateral TMs pearly main nonbulging NECK: Supple. No adenopathy or masses. No carotid bruits or JVD CHEST: Clear to auscultation. No respiratory distress. No wheezes rales or rhonchi HEART: Regular rate and rhythm. No murmur heard. Normal peripheral pulses. ABDOMEN: Soft, nondistended, bowel sounds present, EXTREMITIES: Normal range of motion. No edema. SKIN: Warm, dry, no rash.
[2022-10-30 09:43] LABS: Alanine Aminotransferase 30 U/L (6-50); Albumin Level 4.5 g/dL (3.5-5.1); Alkaline Phosphatase 58 U/L (38-126); Anion Gap 6 mmol/L (8-16); Aspartate Amino Transferase 28 U/L (17-59); Bilirubin,Total 0.4 mg/dL (0.2-1.3); Blood Urea Nitrogen 23 mg/dL (9-20); Calcium 8.8 mg/dL (8.4-10.2); Carbon Dioxide 31 mmol/L (22-30); Chloride 101 mmol/L (98-107); Estimated Glomerular Filt Rate > 60; Glucose 100 mg/dL (65-110); Lipase 91 U/L (23-300); Sodium 138 mmol/L (137-145)
[2022-10-30 09:57] LABS: Lactic Acid Reflex 1.6 mmol/L (0.7-2.0)
[2022-10-30] MEDS: HYDROmorphone HCL INJ (*CRX) 1 MG/ML SYR IV PUSH (10:29)
[2022-10-30 11:28] LABS: Appearance Urine Clear (Clear); Bacteria Urine None Seen /hpf; Bilirubin Urine Negative (Negative); Blood Urine Negative (Negative); Color Urine Yellow (Yellow); Glucose Urine UA Negative (Negative); Ketones Urine Trace mg/dL (Negative); Leukocyte Esterase Ur Negative LEU/UL (Negative); Nitrate Urine Negative (Negative); Non Pathogenic Casts 0-2; Protein Urine Trace mg/dL (Negative); RBC Urine 0-2 /hpf (0-2); Squamous Epithelial Cell Urine None seen /hpf (Few); Urobilinogen Urine 0.2 mg/dL (<2.0); WBC Urine 0-5 /hpf
[2022-10-30 11:31] LABS: Add Urine Microscopic? YES; Specific Grav Ur 1.072 (1.001-1.035)
[2022-10-30] MEDS: PROCHLORPERAZINE EDISYLATE 10 MG/2 ML VIAL IV PUSH (12:44)
[2022-10-30 12:49] VITALS: BP 108/75; PULSE 90; RESP 17; O2SAT 97
== END 2022-10-30 14:20 | disposition home or self-care (01) ==
PROVIDERS: Emergency Medicine; Emergency Provider Nurse Practitioner Family; PCP Family Medicine
DX: K52.9 Noninfective gastroenteritis and colitis, unspecified (principal); K51.90 Ulcerative colitis, unspecified, without complications; Z86.718 Personal history of other venous thrombosis and embolism; Z86.711 Personal history of pulmonary embolism; Z90.49 Acquired absence of other specified parts of digestive tract; F17.220 Nicotine dependence, chewing tobacco, uncomplicated
CPT/HCPCS: 36415; 74177; 80053; 81001; 83605; 83690; 85025; 96361; 96372; 96374; 96375; 96376; 99284; J0500; J0780; J1170; J2405; J7030; Q9967

== ENCOUNTER 2022-12-29 11:56 | Emergency (ER) | payer BC, MEDICAID, SELFPAY ==
[2022-12-29] VITALS (17 sets, daily range): BP systolic 120–190; BP diastolic 75–101; PULSE 69–88; RESP 16–20; TEMP 36.8; O2SAT 90–100
--- NOTE | ~2022-12-29 | CT_ITS ---
EXAMINATION: CT abdomen pelvis w con DATE: 12/29/2022 14:30 INDICATION: Nonlocalizing abdominal pain TECHNIQUE: Computed tomography (CT) of the abdomen and pelvis was performed with 100 CC Omnipaque 350 intravenous contrast. Automated exposure control and iterative reconstruction technique were employe d. Exam dose: 818.52 mGy-cm total exam DLP. COMPARISON: 2022 CT abdomen pelvis 02/11/2021 CT abdomen pelvis FINDINGS: Minimal primarily dependent lower lobe atelectasis, greater on the right. No consolidation. No perica rdial or pleural effusion. Normal heart size. Small sliding hiatal hernia. The gallbladder is present. No hepatic, splenic, pancreatic, adrenal or renal space-occupying mass le stella is detected. No bile duct or pancreatic duct dilatation. No urinary tract calculus or hydrourete ronephrosis. Normal caliber of the abdominal aorta. There is prostate enlargement and calcification. The urinary bladder is unremarkable. Normal caliber of the abdominal aorta. There are shotty nonenlarged periaortic and aortocaval lymph nodes and numerous mesenteric lymph node s, mostly small, with a larger right lower lobe mesenteric lymph node measuring up to 11.8 x 20 mm.. The lymph nodes are relatively unchanged since 10/30/2022. The lymphadenopathy appears stable since 10/30/2022. Postoperative changes from colectomy are again noted. Left inguinal fat-containing hernia. IMPRESSION: No significant change since 10/30/2022 Reviewed, dictated and finalized at [facility]. Reviewed, dictated and finalized at [facility].
[2022-12-29 12:27] LABS: Basophils Absolute Auto 0.1 K/mm3 (0.0-0.1); Basophils Percent Auto 0.9 % (0.2-1.2); Eosinophils Absolute Auto 0.2 K/mm3 (0-0.3); Eosinophils Percent Auto 1.7 % (0-4.4); Hematocrit 45.1 % (42.0-52.0); Hemoglobin 14.1 g/dL (14.0-18.0); Immature Granulocyte Absolute 0.06 K/mm3 (0.00-0.031); Immature Granulocyte Percent A 0.4 % (0-0.5); Lymphocytes Absolute Auto 2.28 K/mm3 (0.9-3.2); Lymphocytes Percent Auto 16.6 % (18.3-44.2); Mean Corpuscular HGB Conc 31.3 g/dl (32-36); Mean Corpuscular Hemoglobin 25.3 pg (26-34); Mean Platelet Volume 9.4 fl (7.4-10.4); Monocytes Absolute Auto 1.1 K/mm3 (0.1-0.6); Neutrophils Absolute Auto 9.9 K/mm3 (1.3-6.7); Neutrophils Percent Auto 72.4 % (45.5-73.1); Platelet Count Result 448 k/mm3 (150-375); Red Blood Count 5.57 M/mm3 (4.6-6.20); Red Cell Distribution Width 18.4 % (11.5-14.5); White Blood Count 13.7 K/mm3 (4.5-10.0)
[2022-12-29 12:40] LABS: Alanine Aminotransferase 30 U/L (6-50); Albumin Level 4.5 g/dL (3.5-5.1); Alkaline Phosphatase 52 U/L (38-126); Anion Gap 8 mmol/L (8-16); Aspartate Amino Transferase 40 U/L (17-59); Bilirubin,Total 0.4 mg/dL (0.2-1.3); Blood Urea Nitrogen 20 mg/dL (9-20); Calcium 9.5 mg/dL (8.4-10.2); Carbon Dioxide 28 mmol/L (22-30); Chloride 102 mmol/L (98-107); Estimated CRCL calculation 136 ml/min; Estimated Glomerular Filt Rate > 60; Glucose 97 mg/dL (65-110); Lipase 42 U/L (23-300); Potassium 4.7 mmol/L (3.4-5.0); Sodium 138 mmol/L (137-145)
[2022-12-29] MEDS: SODIUM CHLORIDE 0.9% IV 1,000 ML 999 ML IV CONT (12:57)
[2022-12-29] MEDS: ONDANSETRON INJ 4 MG/2 ML VIAL IV PUSH (12:57)
[2022-12-29] MEDS: HYDROmorphone HCL INJ (*CRX) 1 MG/ML SYR IV PUSH ×2 (12:57→14:04)
--- NOTE | 2022-12-29 15:57 | PC.NURSE ---
Pt still unable to urinate and does not want a straight cath at this time. Dr. Reno notified.
--- NOTE | 2022-12-29 16:39 | ED.NAVMDI ---
HPI - Nausea/Vomiting/Diarrhea General Chief complaint: Nausea/Vomiting/Diarrhea Stated complaint: n/v/d and abdominal pain Time Seen by Provider: 12/29/22 12:39 History of Present Illness HPI Narrative: Patient is a 42-year-old male who presents to the ER with abdominal cramping and pain. This happens to him monthly. Has history of bowel resection in the past. No fevers or chills or sweats. No nausea or vomiting. He feels like he typically gets better with IV fluid. He has been trying to stay hydrated at home. No diarrhea. No urinary symptoms. Related Data Allergies Allergy/AdvReac Type Severity Reaction Status Date / Time No Known Allergies Allergy Verified 10/30/22 08:54 Review of Systems Review of Systems: All systems reviewed & are unremarkable except as noted in HPI and below Constitutional: Constitutional: Reports no additional constitutional complaints ENT: Reports system reviewed and no additional complaints, except as documented Cardiovascular: Cardiovascular: Reports no additional cardiovascular complaints Respiratory: Respiratory: Reports no additional respiratory complaints Gastrointestinal: Gastrointestinal: Reports abdominal pain, Denies constipation, Denies diarrhea, Denies nausea and Denies vomiting Genitourinary: Genitourinary: Reports no additional male genitourinary complaints Integumentary/Breasts: Skin/Breast: Reports system reviewed and no additional complaints, except as docu [facility] Past Medical History Medical History Anxiety Deep venous thrombosis (~02/2019) History of pancreatitis History of pulmonary embolism Pulmonary embolism Pulmonary embolism (~02/2019) Ulcerative colitis Surgical History Surgical History History of knee surgery History right knee surgery/washout secondary to joint infection. Family History Family History Sibling Inflammatory bowel disease Mother Inflammatory bowel disease Sibling Ulcerative colitis Mother , Mother from an overdose at age 52. No problems noted. Father , Father was morbidly obese and from complications of an infection. No problems noted. Social History Social History Social History: Lives in [place] with his fiancee and children. He has not worked for several years due to his ulcerative colitis. He chews tobacco. Will drink heavily on the weekends. Occasional marijuana use. His dustin Kaplan is his surrogate decision maker and he wishes to be a full code. Smoking status: Never smoker Second hand tobacco smoke exposure: No Alcohol intake: never Drinks per week: 5 Substance use: never Substance use type: marijuana Other substance usage details: Occasionally smokes marijuana/drinks alcohol Last use: 05/17/2020 Gender identity (if verbalized by the patient): Male Spiritual care concerns: No Exam Narrative: GENERAL: Well-appearing, well-nourished, and in no acute distress. HEAD: Normocephalic, atraumatic. EYES: PERRL and EOMI. ENT: Mucous membranes moist. CHEST: Clear to auscultation. No respiratory distress. HEART: Regular rate and rhythm. Normal peripheral pulses. ABDOMEN: Soft, nontender, nondistended, no palpable inguinal hernia. No incarcerating hernia at previous stomal site. EXTREMITIES: Normal range of motion. No edema. SKIN: Warm, dry, no rash. NEURO: Alert and oriented x3. PSYCH: Normal mood and affect. Course Course Emergency Course: Patient resting comfortably after Dilaudid IV fluid. Informed of lab and imaging results. [place] appropriate for discharge home Vital Signs Vital signs: Vital Signs Temperature 98.2 F 12/29/22 11:59 Pulse Rate 88 12/29/22 11:59 Respiratory Rate 20 12/29/22 11:59 Blood Pressure
== END 2022-12-29 17:05 | disposition home or self-care (01) ==
PROVIDERS: Emergency Provider Emergency Medicine; PCP Family Medicine
DX: R10.9 Unspecified abdominal pain (principal); K51.90 Ulcerative colitis, unspecified, without complications; Z86.711 Personal history of pulmonary embolism; Z86.718 Personal history of other venous thrombosis and embolism
CPT/HCPCS: 36415; 74177; 80053; 83690; 85025; 96361; 96374; 96375; 96376; 99284; J1170; J2405; J7030; Q9967

== ENCOUNTER 2023-01-05 18:33 | Emergency (ER) | payer BC, MEDICAID, SELFPAY ==
[2023-01-05 18:37] VITALS: BP 165/102; PULSE 82; RESP 18; TEMP 36.6; O2SAT 100
--- NOTE | 2023-01-05 19:04 | PC.NURSE ---
Patient walked out of department with steady gate.
== END 2023-01-05 19:54 | disposition left against medical advice (07) ==
PROVIDERS: Emergency Provider Emergency Medicine; PCP Family Medicine
DX: R10.9 Unspecified abdominal pain (principal)
CPT/HCPCS: 36415; 99199